=== PATIENT | female | born 1985 | race Caucasian/White ===

== ENCOUNTER 2023-02-13 13:15 | Emergency (ER) | payer MEDICAID, SELFPAY ==
[2023-02-13 13:18] VITALS: BP 129/89; PULSE 82; RESP 16; TEMP 36.5; O2SAT 98; BMI 26.6
--- NOTE | 2023-02-13 13:35 | ED.FEMALEGU ---
HPI - Female Genitourinary General Time Seen by Provider: 13:35 Date Seen: 02/13/23 Chief complaint: Urogenital Problems, Female Stated complaint: Bladder infection Time Seen by Provider: 02/13/23 13:34 Source: patient and RN notes reviewed Mode of arrival: ambulatory Limitations: no limitations History of Present Illness HPI Narrative: This 37-year-old female is coming in with concern of UTI. She had some urinary symptoms as well as reported bacterial vaginosis a couple weeks ago. She got treated with doxycycline and symptoms seemed of went away. However , 2 days ago, started having urinary frequency, dysuria, hematuria. She has been trying to push water and cranberry juice. She took a test at [facility] and it stated she had leukocyte esterase and nitrate positive. She has had no fevers or chills, no abdominal pain, no nausea or vomiting. She has no history of pyelonephritis or kidney stones. Related Data Previous Rx's Medication Instructions Recorded cephalexin 500 mg tablet 500 mg PO TID #15 tabs 02/13/23 Allergies Allergy/AdvReac Type Severity Reaction Status Date / Time morphine AdvReac Severe Anaphylaxis Verified 02/13/23 13:22 Review of Systems Narrative: As per HPI Exam Const: Vital Signs, click to edit/add: Vital Signs - 24 hr 02/13/23 13:18 Temperature 97.7 F Pulse Rate [Pulse Oximeter] 82 Respiratory Rate 16 Blood Pressure [Ri ght Upper Arm] 129/89 Pulse Oximetry 98 Oxygen Delivery Me thod Room Air Very pleasant 37-year-old female that is alert interactive no apparent distress. She looks well, speaks in complete sentences. CV regular rate rhythm no murmur. Abdomen is soft, no rebound or guarding, no organomegaly. Documenting provider has reviewed patient's vital signs: yes Course Course Hospital Course: Patient and I reviewed obtaining urine culture. We went over the pros and cons of having the urine culture verses not doing it. She will give us urine to do the urine culture to ensure she is on the right antibiotics. We will treat for UTI based on her test done outpatient. Vital Signs Vital signs: Initial Vital Signs Temperature 97.7 F 02/13/23 13:18 Temperature Source Temporal Artery Scan 02/13/23 13:18 Pulse Rate 82 02/13/23 13:18 Pulse Rhythm Regular 02/13/23 13:18 Pulse Strength 3+ Normal 02/13/23 13:18 Respiratory Rate 16 02/13/23 13:18 Blood Pressure 129/89 02/13/23 13:18 Blood Pressure Mean 102 02/13/23 13:18 Blood Pressure Position Sitting 02/13/23 13:18 Pulse Oximetry 98 02/13/23 13:18 Oxygen Delivery Method Room Air 02/13/23 13:18 Vital Signs Temperature 97.7 F 02/13/23 13:18 Pulse Rate 82 02/13/23 13:18 Respiratory Rate 16 02/13/23 13:18 Blood Pressure 129/89 02/13/23 13:18 Pulse Oximetry 98 02/13/23 13:18 Oxygen Delivery Method Room Air 02/13/23 13:18 Temperature 97.7 F 02/13/23 13:18 Pulse Rate 82 02/13/23 13:18 Respiratory Rate 16 02/13/23 13:18 Blood Pressure 129/89 02/13/23 13:18 Pulse Oximetry 98 02/13/23 13:18 Oxygen Delivery Method Room Air 02/13/23 13:18 Critical Care Time Critical Care Time Critical Care Time: No Discharge Plan Discharge Clinical Impression: Urinary tract infection Patient Disposition: Home, Self-Care Condition: Stable Instructions: Urinary Tract Infection in Women (DC) Additional Instructions: Start oral antibiotic and take as prescribed. Push fluids. We will contact you should we need to change antibiotics based on your urine culture results. If you are not improving over the next couple days, worsen at any point with nausea vomiting, development of fevers or abdominal pain, do need to be re-evaluated. Activity Level: Activity as Tolerated Discharge Diet: Regular Prescriptions: New cephalexin 500 mg tablet 500 mg PO TID Qty: 15 0RF Stand Alone Forms: [facility] Info Instructions
--- NOTE | 2023-02-17 09:28 | ED.NURSE ---
Patient calls wondering if her urine culture report is back. Reviewed culture results and appropriate treatment on keflex. Patient notes she still experiencing dysuria and pelvic discomfort, advised per Dr. Herndon's dictation to follow up if not improving. Patient verbalizes understanding denies any questions or concerns.
== END 2023-02-13 14:11 | disposition home or self-care (01) ==
LOC: ED 14:06
PROVIDERS: Emergency Provider Family Medicine
DX: N39.0 Urinary tract infection, site not specified (principal)
CPT/HCPCS: 87086; 87186; 99282; 99283

== ENCOUNTER 2023-06-05 11:05 | Emergency (ER) | payer MEDICAID, SELFPAY ==
[2023-06-05 11:15] VITALS: BP 152/109; PULSE 83; RESP 20; O2SAT 97; BMI 27.4
--- NOTE | 2023-06-05 11:36 | ED.DENTAL ---
HPI - Dental/Oral General Chief complaint: Altered Mental Status Stated complaint: broken tooth Time Seen by Provider: 06/05/23 11:07 History of Present Illness HPI Narrative: This 38-year-old female comes in with severe left lower dental pain. She states that she has a fractured tooth and has an appointment with a dentist in about 10 days. She had been taking Tylenol 3 and has run out of this medicine. Her pain is severe such that she is not able to sleep at night. She does not report any fevers or other symptoms. Related Data Home Medications Medication Instructions Recorded Confirmed acetaminophen 300 mg-codeine 30 mg 1 tab PO Q4-6H PRN pain 06/05/23 06/05/23 tablet Previous Rx's Medication Instructions Recorded cephalexin 500 mg tablet 500 mg PO TID #15 tabs 02/13/23 ketorolac 10 mg tablet 10 mg PO Q8H 5 days #15 tabs 06/05/23 methylprednisolone 4 mg tablets in See Rx Instructions PO .COMPLEX 06/05/23 a dose pack (Medrol (Alexis)) #21 ea Allergies Allergy/AdvReac Type Severity Reaction Status Date / Time morphine AdvReac Severe Anaphylaxis Verified 06/05/23 11:17 Review of Systems Status of ROS: Reports: 10 or more systems reviewed and unremarkable except as noted in History and below Narrative: Constitutional: No fevers, no weight gain or loss. Eyes: No discharge. No vision changes. HENT: No congestion, no sore throat, no ear pain. Dental pain as described above. Cardiovascular: No chest pain, no palpitations. Respiratory: No shortness of breath, no wheezes, no cough. Gastrointestinal: No abdominal pain, no vomiting, no diarrhea. Genitourinary: No dysuria, no hematuria. Musculoskeletal: Normal range of motion. Skin: No rashes, no pruritis. Neurological: No dizziness, weakness, sensory change, speech change. Endo/Heme/Allergies: No bruising or bleeding. No polydipsia. Pysch: no suicidality, no anxiety, no insomnia. All other systems reviewed and are negative. PFSH PFS Social History Smoking Status: Current every day smoker What tobacco products do you use: cigarettes Smoking packs per day: 0.5 Smoking cigarettes per day: 10.0 Years smoked: 25 Smoking pack-years: 12.50 Do you use any of these nicotine containing products: None Second hand tobacco smoke exposure: No How often do you have a drink containing alcohol: never How often do you have six or more drinks on one occasion: Never AUDIT-C Alcohol total score: 0 Non-prescribed substance use: denies use Exam Narrative: Exam Narrative: Constitutional: Well-developed, well-nourished, no acute distress. HEENT: Normocephalic, atraumatic. Fractured tooth in the left lower posterior row of teeth. Neck: Normal range of motion. Nontender. Supple. Heart: Intact distal pulses. Lungs: No chest discomfort. No wheezes, rhonchi, or rales. Abdomen: Nontender. Back: Normal range of motion. Extremities: Normal range of motion. No injury. Skin: Intact. No rash. Warm. No erythema or pallor. Neurologic: No altered sensation. No weakness. Alert and oriented. Psychiatric: No suicidality. No anxiety or depression. No insomnia. Nursing notes and vitals signs are reviewed. Const: Vital Signs, click to edit/add: Vital Signs - 24 hr 06/05/23 11:15 Pulse Rate [Pulse Oximeter] 83 Respiratory Rate 20 Blood Pressure [Ri ght Upper Arm] 152/109 H Pulse Oximetry 97 Oxygen Delivery Me thod Room Air Course Vital Signs Vital signs: Initial Vital Signs Temperature Source Temporal Artery Scan 06/05/23 11:15 Pulse Rate 83 06/05/23 11:15 Respiratory Rate 06/05/23 11:15 Blood Pressure 152/109 H 06/05/23 11:15 Blood Pressure Mean 123 H 06/05/23 11:15 Blood Pressure Position Sitting 06/05/23 11:15 Pulse Oximetry 97 06/05/23 11:15 Oxygen Delivery Method Room Air 06/05/23 11:15 Vital Signs Pulse Rate 83 06/05/23 11:15 Respiratory Rate 20 06/05/23 11:15 Blood Pressure 152/109 H 06/05/23 11:15 Pulse Oximetry 97 06/05/23 11:15 Oxygen Delivery Method Room Air 06/05/23 11:15 Pulse Rate 83 06/05/23 11:15 Respiratory Rate 20 06/05/23 11:15 Blood Pressure 152/109 H 06/05/23 11:15 Pulse Oximetry 97 06/05/23 11:15 Oxygen Delivery Method Room Air 06/05/23 11:15 MDM - Dental/Oral MDM Narrative Medical decision making narrative: This patient has severe pain in her left lower row of teeth due to a fractured tooth. She does have an appointment with a dentist but this is about 10 days from now. I did recommend a nerve block of the inferior alveolar nerve and the patient is agreeable to this. Using Marcaine 0.25% I injected approximately 2 mL in this area and this brought rather quick and complete relief of her pain. I stated that we do not use narcotics to treat dental pain but did prescribe Toradol and a Medrol Dosepak. Discharge Plan Discharge Clinical Impression: Fracture of tooth Patient Disposition: Home, Self-Care Condition: Improved Additional Instructions: Take medication as needed and directed. Follow up with dentist as scheduled. Prescriptions: New ketorolac 10 mg tablet 10 mg PO Q8H 5 Days Qty: 15 0RF methylprednisolone [Medrol (Alexis)] 4 mg tablets,dose pack See Rx Instructions .ROUTE .COMPLEX Qty: 21 0RF Rx Instructions: orally per package directions No Action cephalexin 500 mg tablet 500 mg PO TID Qty: 15 0RF acetaminophen-codeine 300-30 mg tablet 1 tab PO Q4-6H PRN (Reason: pain) Follow Up/Referrals: Provider,Not a Local [Primary Care Provider] - Stand Alone Forms: [employer] Info Instructions
--- OUTSIDE RECORDS SUMMARY | 2023-06-05 11:39 | XMS_ITS | Patient Health Record ---
Author Name Unknown Organization [facility] Address [address] [place], [place] [id number] Care Team Providers Care Principal Database Developer Name Role Phone Luis Berta Primary Care Provider Dejan Bello Unavailable [phone] Natali Christiansen Unavailable [phone] Bartolo Klein Unavailable [phone] Mana Malik Unavailable [phone] ALLERGIES Allergen (clinical drug ingredient) Drug/Non Drug Allergy documented on EMR Reaction Allergy Type Onset Date Status morphine Morphine Unknown Drug Allergy Active RESULTS Component Value Reference Range Notes ALBUMIN Reviewed date:04/30/2023 11:49:38 AM Interpretation: Performing Lab:ROSANG[facility]A [facility] AlarisInter[employer] SupercomputingWekxHZ[address] Paolo Hauser Notes/Report: ALBUMIN 4.7 3.6-5.1 g/dL ESTRADIOL Reviewed date:04/30/2023 11:49:38 AM Interpretation: Performing Lab:[facility]ANG[facility]A [facility] [place] [place] Be[employer] BioproductsL[address] Paolo Hauser Notes/Report: ESTRADIOL 59 Reference Range Follicular Phase: 19-144 Mid-Cycle: 64-357 Luteal Phase: 56-214 Postmenopausal: < or = 31 Reference range established on post-pubertal patient population. No pre-pubertal reference range established using this assay. For any patients for whom low Estradiol levels are anticipated (e.g. males, pre-pubertal children and hypogonadal/post-menopausal females), the [facility] Estradiol, Ultrasensitive, LCMSMS assay is recommended (order code [id number]). Please note: patients being treated with the drug fulvestrant (Faslodex(R)) have demonstrated significant interference in immunoassay methods for estradiol measurement. The cross reactivity could lead to falsely elevated estradiol test results leading to an inappropriate clinical assessment of estrogen status. [facility] order code [id number], Ultrasensitive LC/MS/MS demonstrates negligible cross reactivity with fulvestrant. PROGESTERONE Reviewed date:04/30/2023 11:49:38 AM Interpretation: Performing Lab:ROSANGELA [facility]-[place] [address], [place] CjqaUH[address] Paolo Hauser Notes/Report: PROGESTERONE 1.9 Reference Ranges Female Follicular Phase < 1.0 Luteal Phase 2.6-21.5 Post menopausal < 0.5 1st Trimester 4.1-34.0 2nd Trimester 24.0-76.0 3rd Trimester 52.0-302.0 DHEA SULFATE Reviewed date:04/30/2023 11:49:38 AM Interpretation: Performing Lab:ROSANGELA [facility] [address], [place] RichardsonKbyhXZ[address] Paolo Hauser Notes/Report: DHEA SULFATE 148 19-237 mcg/dL FSH Reviewed date:04/30/2023 11:49:38 AM Interpretation: Performing Lab:ROSANGELA [facility] [address], [place] [facility] MedicalLmvgJO[address] Paolo Hauser Notes/Report: FSH 4.6 Reference Range Follicular Phase 2.5-10.2 Mid-cycle Peak 3.1-17.7 Luteal Phase 1.5- 9.1 Postmenopausal 23.0-116.3 LH Reviewed date:04/30/2023 11:49:38 AM Interpretation: Performing Lab:ROSANGELA [facility] [address], [place] SpringsZsbdAS[address] Paolo Hauser Notes/Report: LH 3.3 Reference Range Follicular Phase 1.9-12.5 Mid-Cycle Peak 8.7-76.3 Luteal Phase 0.5-16.9 Postmenopausal 10.0-54.7 PROLACTIN Reviewed date:04/30/2023 11:49:38 AM Interpretation: Performing Lab:ROSANGELA [facility]castGovindYangaroo [address], [place] NviyYI[address] Paolo Hauser Notes/Report: PROLACTIN 3.7 Reference Range Females Non- 3.0-30.0 10.0-209.0 Postmenopausal 2.0-20.0 T4, FREE Reviewed date:04/30/2023 11:49:38 AM Interpretation: Performing Lab:ROSANGELA [facility]-[place] [address], [place] JfdkRF[address] Paolo Hauser Notes/Report: T4, FREE 1.1 0.8-1.8 ng/dL CORTISOL, TOTAL Reviewed date:04/30/2023 11:49:38 AM Interpretation: Performing Lab:ROSANGELA [facility] [address], [place] XyseVK[address] Paolo Hauser Notes/Report: CORTISOL, TOTAL 13.5 Reference Range: For 8 a.m.(7-9 a.m.) Specimen: 4.0-22.0 Reference Range: For 4 p.m.(3-5 p.m.) Specimen: 3.0-17.0 * Please interpret above results accordingly * TSH Reviewed date:04/30/2023 11:49:38 AM Interpretation: Performing Lab:ROSANGELA [facility] [address], [facility] ClinicAacdBS[address] Paolo Hauser Notes/Report: TSH 1.25 Reference Range > or = 20 Years 0.40-4.50 Ranges First trimester 0.26-2.66 Second trimester 0.55-2.73 Third trimester 0.43-2.91 T3, FREE Reviewed date:04/30/2023 11:49:39 AM Interpretation: Performing Lab:ROSANGELA [facility] [address], [facility] ClinicFejnEN[address] Paolo Hauser Notes/Report: T3, FREE 3.3 2.3-4.2 pg/mL SEX HORMONE BINDING GLOBULIN Reviewed date:04/30/2023 11:49:39 AM Interpretation: Performing Lab:ROSANGELA [facility] [address], [facility] ClinicKevyRE[address] Paolo Hauser Notes/Report: SEX HORMONE BINDING GLOBULIN 73 17-124 nmol/ L TESTOSTERONE, TOTAL, LC/MS/M S Reviewed date:05/04/2023 10:02:38 AM Interpretation: Performing Lab:Z3E, [facility]-[address] [address], [address], AcoufjnhsnCJ[address] Earl Mcdonough MD Notes/Report: TESTOSTERONE, TOTAL, MS 26 2-45 ng/dL For additional information, please refer to https://education.Re5ult/faq/TotalTestoste roneLCMSMS (This link is being provided for informational/educational purposes only.) (Note) This test was developed and its analytical performance characteristics have been determined by [employer]. It has not been cleared or approved by the FDA. This assay has been validated pursuant to the CLIA regulations and is used for clinical purposes. [facility] [employer] [address] [place] [address],[address] [facility] [address] Earl Mcdonough MD DIHYDROTESTOSTERONE, LC/MS/M S Reviewed date:05/04/2023 10:02:39 AM Interpretation: Performing Lab:HARDY, [facility],[address] RamosPrimary Children's HospitalCA[address] Ange Esquivel MD,PhD,BERE Notes/Report: DIHYDROTESTOSTERONE, LC/MS/MS 11 < OR = 20 ng/dL This test was developed and its analytical performance characteristics have been determined by [facility]. It has not been cleared or approved by FDA. This assay has been validated pursuant to the CLIA regulations and is used for clinical purposes. TESTOSTERONE, FREE Reviewed date:05/04/2023 10:02:39 AM Interpretation: Performing Lab:Z3E, [facility]-BojZxfdbs[address] [place] [address], [address]Providence HospitalFfhrnqcljjBF[address] Earl Mcdonough MD Notes/Report: TESTOSTERONE, FREE 1.3 0.2-5.0 pg/mL (Note) The concentration of free testosterone is derived from a mathematical model using total testosterone by LCMSMS, sex hormone binding globulin and albumin. This test was developed and its analytical performance characteristics have been determined by [facility]. It has not been cleared or approved by the FDA. This assay has been validated pursuant to the CLIA regulations and is used for clinical purposes. [facility] [employer] [address] [address],[address] [facility] [address] Earl Mcdonough MD BD Affirm Reviewed date:12/18/2022 09:40:46 AM Interpretation: Performing Lab: Notes/Report: Yeast NEG Negative - Bacterial Vaginosis POS Negative - Trichomoniasis NEG Negative - Chlamydia & Gonorrhea Reviewed date:12/20/2022 08:03:54 AM Interpretation: Performing Lab:CESAR [facility]-[address] [facility] [address], LfummeefxdWW[address] Paolo Hauser Notes/Report: CHLAMYDIA TRACHOMATIS RNA, TMA, UROGENITAL NOT DETECTED NOT DETECTED NEISSERIA GONORRHOEAE RNA, TMA, UROGENITAL NOT DETECTED NOT DETECTED COMMENT The analytical performance characteristics of this assay, when used to test SurePath(TM) specimens have been determined by [facility]. The modifications have not been cleared or approved by the FDA. This assay has been validated pursuant to the CLIA regulations and is used for clinical purposes. For additional information, please refer to https://education.Re5ult/faq/GJI700 (This link is being provided for information/ educational purposes only.) ANTI-MULLERIAN HORMONE ([facility]) , (Insurance Bill ONLY) Reviewed date:05/04/2023 10:03:17 AM Interpretation: Performing Lab:Gardenia GARCIA [facility]-Chris [address]ww[address], JkiwirqzPW[address] Murtaza Christiansen M.D. Notes/Report: ANTI-MULLERIAN HORMONE ([facility]), FEMALE 4.01 0.18-5.68 ng/mL Test, Urine Reviewed date:12/18/2022 09:39:47 AM Interpretation:Negative Performing Lab: Notes/Report: Negative Test, Urine Negative Negative - BD Affirm Reviewed date:07/21/2022 01:17:45 PM Interpretation: Performing Lab: Notes/Report: Yeast NEG Negative - Bacterial Vaginosis POS Negative - Trichomoniasis NEG Negative - Chlamydia & Gonorrhea Reviewed date:07/27/2022 08:31:29 AM Interpretation: Performing Lab:CESAR [facility]-[address], IsnzvmwfacVP[address] Paolo Hauser Notes/Report: CHLAMYDIA TRACHOMATIS RNA, TMA, UROGENITAL NOT DETECTED NOT DETECTED NEISSERIA GONORRHOEAE RNA, TMA, UROGENITAL NOT DETECTED NOT DETECTED COMMENT The analytical performance characteristics of this assay, when used to test SurePath(TM) specimens have been determined by [facility]. The modifications have not been cleared or approved by the FDA. This assay has been validated pursuant to the CLIA regulations and is used for clinical purposes. For additional information, please refer to https://education.Re5ult/faq/NLP476 (This link is being provided for information/ educational purposes only.) HEPATITIS C AB W/REFL TO HCV RNA, QN, PCR Reviewed date:07/23/2022 09:04:23 AM Interpretation: Performing Lab:ROSANGELA [facility]-[place] [address], [place] RichardsonOnooDA[address] Paolo Hauser M.D. Notes/Report: HEPATITIS C ANTIBODY NON-REACTIVE NON-REACTIVE INDEX <0.02 <1.00 HCV antibody was non-reactive. There is no laboratory evidence of HCV infection. In most cases, no further action is required. However, if recent HCV exposure is suspected, a test for HCV RNA (test code 16773) is suggested. For additional information please refer to http://education.ThromboVision/faq/QXI46b7 (This link is being provided for informational/ educational purposes only.) HEPATITIS B SURFACE ANTIGEN W/REFL CONFIRM Reviewed date:07/23/2022 09:04:23 AM Interpretation: Performing Lab:ROSANGELA [facility]-[place] [address], [place] RichardsonRqdqBR[address] Paolo Hauser M.D. Notes/Report: HEPATITIS B SURFACE ANTIGEN NON-REACTIVE NON-REACTIVE RPR (DX) W/REFL TITER AND CO NFIRMATORY TESTING Reviewed date:07/23/2022 09:04:23 AM Interpretation: Performing Lab:ROSANGELA [facility]-[address], [place] RichardsonYgsrKE[address] Paolo Hauser M.D. Notes/Report: RPR (DX) W/REFL TITER AND CONFIRMATORY TESTING NON-REACTIVE NON-REACTIVE HIV 1/2 ANTIGEN/ANTIBODY,FOU RTH GENERATION W/RFL Reviewed date:07/23/2022 09:04:23 AM Interpretation: Performing Lab:ROSANGELA [facility] [address], [place] RichardsonEdxkXC[address] Paolo Hauser M.D. Notes/Report: HIV AG/AB, 4TH GEN NON-REACTIVE NON-REACTIVE HIV-1 antigen and HIV-1/HIV-2 antibodies were not detected. There is no laboratory evidence of HIV infection. PLEASE NOTE: This information has been disclosed to you from records whose confidentiality may be protected by state law. If your state requires such protection, then the state law prohibits you from making any further disclosure of the information without the specific written consent of the person to whom it pertains, or as otherwise permitted by law. A general authorization for the release of medical or other information is NOT sufficient for this purpose. For additional information please refer to http://education.CEYX.com/faq/SKK456 (This link is being provided for informational/ educational purposes only.) The performance of this assay has not been clinically validated in patients less than 2 years old. SURESWAB(R), MYCOPLASMA/UREA PLASMA PANEL, PCR Reviewed date:07/27/2022 08:30:27 AM Interpretation: Performing Lab:EZ, [facility]/Chris [facility],[address] [facility] CenterCA[address] Ange Esquivel MD,PhD,BERE Notes/Report: SURESWAB(R), MYCOPLASMA HOMINIS, REAL-TIME PCR DETECTED REFEERENCE RANGE: NOT DETECTED Methodology: Real-Time PCR This test was developed and its analytical performance characteristics have been determined by [facility]. It has not been cleared or approved by FDA. This assay has been validated pursuant to the CLIA regulations and is used for clinical purposes. MYCOPLASMA GENITALIUM, rRNA,TMA NOT DETECTED REFERENCE RANGE: NOT DETECTED U. PARVUM DNA DETECTED U. UREALYTICUM DNA NOT DETECTED REFERENCE RANGE: NOT DETECTED Methodology: Real-Time PCR This test was developed and its analytical performance characteristics have been determined by [facility]. It has not been cleared or approved by FDA. This assay has been validated pursuant to the CLIA regulations and is used for clinical purposes. Urinalysis, Routine - IH Reviewed date:03/09/2023 02:40:40 PM Interpretation: Performing Lab: Notes/Report: Urine Color yellow Yellow - Praveena Appearance clear Clear - Glucose neg Bilirubin neg Ketone neg Specific [place] 1.030 Blood neg pH 5.5 Protein neg Urobilinogen 0.2 Nitrite neg Leukocytes neg Glucose Bilirubin Ketones Specific [place] Occult Blood pH Protein Urobilinogen Nitrite Leukocytes BD Affirm Reviewed date:03/09/2023 02:43:08 PM Interpretation: Performing Lab: Notes/Report: Yeast NEG Negative - Bacterial Vaginosis POS Negative - Trichomoniasis NEG Negative - SURESWAB(R), MYCOPLASMA/UREA PLASMA PANEL, PCR Reviewed date:12/21/2022 12:13:14 PM Interpretation: Performing Lab:EZ, [facility],[address] [facility] CenterCA[address] Ange Esquivel MD,PhD,BERE Notes/Report: SURESWAB(R), MYCOPLASMA HOMINIS, REAL-TIME PCR DETECTED REFEERENCE RANGE: NOT DETECTED Methodology: Real-Time PCR This test was developed and its analytical performance characteristics have been determined by [facility]. It has not been cleared or approved by FDA. This assay has been validated pursuant to the CLIA regulations and is used for clinical purposes. MYCOPLASMA GENITALIUM, rRNA,TMA NOT DETECTED REFERENCE RANGE: NOT DETECTED U. PARVUM DNA DETECTED U. UREALYTICUM DNA DETECTED REFERENCE RANGE: NOT DETECTED Methodology: Real-Time PCR This test was developed and its analytical performance characteristics have been determined by [facility]. It has not been cleared or approved by FDA. This assay has been validated pursuant to the CLIA regulations and is used for clinical purposes. REASON FOR REFERRAL No Information SOCIAL HISTORY Tobacco Use: Social History Observation Description Date Details (start date - stop date) Current Smoker NA - NA Sex Assigned At : Social History Observation Description Sex Assigned At Unknown Tobacco Use/Smoking Question Answer Notes Are you a current smoker How often do you smoke cigarettes? every day How many cigarettes a day do you smoke? 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) Problem Discharge of vagina (N89.8) Active confirmed Problem Encounter for screening for HIV (Z11.4) Active confirmed Problem UTI (N39.0) Active confirmed VITAL SIGNS Blood pressure diastolic 80 mm Hg 04/28/2023 Height 68 in 04/28/2023 Blood pressure systolic 120 mm Hg 04/28/2023 Weight 165.8 lbs 04/28/2023 BMI 25.21 kg/m2 04/28/2023 Encounters Encounter Location Date Provider Diagnosis [facility] [address] [facility] [address] [place] [address] 07/20/2022 Mana Malik [facility] [address] [place] [phone] 07/27/2022 Mana Malik [facility] [address] [place] [address] 07/29/2022 Dejan Bello [facility] [address] [place] [phone] 12/16/2022 Natalisa Christiansen [facility] [address] [place], [place] [address] [address] 12/21/2022 Berta Smith [facility] [address] [place] [phone] 01/21/2023 Mana Malik [facility] [address] [place] [phone] 03/04/2023 Bartolo Klein [facility] [address] [place] [phone] 04/28/2023 Dejan Bello [facility] [address] [place], [place] [phone] 04/28/2023 Dejan Bello Recurrent infections B99.9 [facility] [address] [place] [phone] 07/20/2022 Mana Malik Vaginal discharge N89.8 and Routine screening for STI (sexually transmitted infection) Z11.3 [facility] [address] [place] [id number] 05/18/2023 Dejan Maceford [place] [place], [place] [phone] 03/04/2023 Christracheler Ernie Cervical discharge N89.8 [facility] [address] [place] [address] 04/28/2023 Dejan [place] Desire for Z31.9 ; Dysfunction of left ovary E28.9 and Infection B99.9 [address] [place] [address] [place] [phone] 12/16/2022 Natali Hoffoss Cervical discharge N89.8 [facility] [address] [place] [address] 12/16/2022 Natali Hoffoss Encounter for screening examination for sexually transmitted disease Z11.3 and Encounter for screening examination for chlamydial infection Z11.[address] [place] [address] 07/20/2022 Mana Malik Vaginal itching N89.8 [facility] [address] [place] [address] 07/20/2022 Mana Malik Encounter for screening examination for sexually transmitted disease Z11.3 and Encounter for screening for HIV Z11.4 [address] [place], [place] [phone] 12/16/2022 Natali Hoffoss Amenorrhea N91.2 ; Urine test negative Z32.02 ; Vaginal discharge N89.8 ; Chronic vaginitis N76.1 and Routine screening for STI (sexually transmitted infection) Z11.3 [address] [place] [place], [place] [phone] 12/16/2022 Natali Hoffoss Abnormal uterine bleeding N93.9 [address] [place], [place] [phone] 03/04/2023 Bartolo Klein UTI N39.0 and Chronic vaginitis N76.1 [address] [place], [place] [phone] 10/09/2022 Dejan Maceford ASSESSMENTS Encounter Date Diagnosis Assessment Notes Treatment Notes Treatment Clinical Notes 03/04/2023 UTI (ICD-10 - N39.0) History and symptoms reviewed. UA normal. No further treatment at this time. 12/16/2022 Urine test negative (ICD-10 - Z32.02) 03/04/2023 Chronic vaginitis (ICD-10 - N76.1) Symptoms reviewed. Exam findings reviewed with patient. BD Affirm performed. Further treatment pending results. Discussed chronic vaginitis and briefly discussed treatment options. 07/20/2022 Vaginal discharge (ICD-10 - N89.8) -Complete STI testing today with BD affirm, GC/CT, and myoplasma/ureaplasm a. -Patient with chronic, recurrent BV. We will try and extended course of 2x weekly metrogel -Serum testing for HIV/RPR/HEp b/c. -Will notify patient of results. 07/20/2022 Routine screening for STI (sexually transmitted infection) (ICD-10 - Z11.3) 12/16/2022 Encounter for screening examination for sexually transmitted disease (ICD-10 - Z11.3) 12/16/2022 Encounter for screening examination for chlamydial infection (ICD-10 - Z11.8) 12/16/2022 Abnormal uterine bleeding (ICD-10 - N93.9) 12/16/2022 Amenorrhea (ICD-10 - N91.2) Discussed with patient UPT here today is negative. Suspect this was a chemical for the patient. Appearance of US looks mid cycle which correlates with dates. Discussed if she wants to eavluate for ashermann's syndrome, she would need a hysteroscopy with an MD. She is not intersted in a , would like tubal ligation now. As for BV chronically, advised to use distilled NOT bottled water. BD affirm collected, STI screening done as well per patient request. See Chary BLANCO for information on our laser therapy options and discuss if chronic BV is an indidcation for these. 30 minutes spent in chart prep, US discussion, symptom discussion, plan of care for all concerns and documenting vist. 04/28/2023 Desire for (ICD-10 - Z31.9) 04/28/2023 Recurrent infections (ICD-10 - B99.9) 38 yo F with recurrent vaginal infections. I reviewed with her that bacterial vaginosis typically results due to a change in the vaginal pH which allows for the overgrowth of bacteria. This indicates that her vaginal pH may be contributing to her experience with recurrent infections. Commonly a contributor to vaginal pH changes such as this are hormonal imbalances. I suspect that she may have a low level of testosterone. Hormonal labs will be drawn today to assess for this. If her hormones are in fact low, hormone replacement therapy (HRT) may benefit her. Her energy level is low, she has affected focus, her nails are brittle and slow growing, and her hair has become very thin and brittle. She will follow up with me in 2 weeks to discuss these lab results and develop a plan. 07/20/2022 Encounter for screening examination for sexually transmitted disease (ICD-10 - Z11.3) 07/20/2022 Encounter for screening for HIV (ICD-10 - Z11.4) 07/20/2022 Vaginal itching (ICD-10 - N89.8) 12/16/2022 Vaginal discharge (ICD-10 - N89.8) 12/16/2022 Cervical discharge (ICD-10 - N89.8) 03/04/2023 Cervical discharge (ICD-10 - N89.8) 04/28/2023 Infection (ICD-10 - B99.9) 04/28/2023 Dysfunction of left ovary (ICD-10 - E28.9) 12/16/2022 Chronic vaginitis (ICD-10 - N76.1) 12/16/2022 Routine screening for STI (sexually transmitted infection) (ICD-10 - Z11.3) 04/28/2023 Other Total face to face time is 30minutes, with > 50% of time spent in counseling regarding diagnosis, risks and benefits of various treatment plans and expected outcomes., Portions of this note were transcribed by chato Oconnor. Dr. Bello personally performed the history, physical exam and medical decision making; and confirmed the accuracy of the information in the transcribed note Authenticated by Dr. Bello. PLAN OF TREATMENT Next Appt Details Provider Name:Deidra Macario, 06/16/2023 02:30:00 PM, [address] [place] [address], [address], [place], [address], Insurance Providers Payer Name Payer Address Payer Phone Subscriber Number Group Number Insured Name Patient Relationship to Insured Coverage Start Date Coverage End Date [facility] 2021 [place] (CLIENT bill) [address] [place], [place] [phone] [id number] Taylor Solis Self - patient is the insured 2 [facility] 2019 [address] [place], [place] [phone] [id number] Taylor Gonzalez Self - patient is the insured 7 MEDICAL (GENERAL) HISTORY Medical History History ICD Code Kidney Infections Bladder Infections Pelvic infections Chicken Pox Depression/Anxiety Drug or Alcohol problem Asthma Pneumonia Surgical History Surgery Date(Month/Year) C-sesction 08/13/2005 Breast Augmentation 05/08/2006 06/21/2008 D and C 10/2017 Hospitalization History Reason Date(Month/Year) child x2
[2023-06-05] MEDS: BUPIVACAINE 0.25% 30 ML INJECTION (11:44)
== END 2023-06-05 11:59 | disposition home or self-care (01) ==
PROVIDERS: Emergency Provider Emergency Medicine Emergency Medical Services
DX: S02.5XXA Fracture of tooth (traumatic), initial encounter for closed fracture (principal)
CPT/HCPCS: 64450; 99283; 99284; J0665

== ENCOUNTER 2023-07-12 04:55 | Emergency (ER) | payer MEDICAID, SELFPAY ==
[2023-07-12 05:02] VITALS: BP 135/78; PULSE 85; RESP 18; TEMP 36.7; O2SAT 99; BMI 28.7
--- NOTE | 2023-07-12 05:05 | ED_ITS ---
HPI - General Adult General Chief complaint: Dental/Oral/Mouth Injury/Pain Stated complaint: Toothache L side Time Seen by Provider: 07/12/23 05:02 History of Present Illness HPI narrative: CC: Left Lower Tooth Pain pt. with ongoing issues with tooth. supposed to see dentist, but she tore her meniscus and was focusing on that. denies n/v, diarrhea, fevers 38-year-old woman presenting to the emergency department with tooth pain. Has been seen for this before in this department about 5 or 6 weeks ago. Anticipated follow-up with dental at that time but had a rather significant right knee injury and is moving toward surgery with that which derailed her dental plans. She is further concerned about timing of dental care and surgery for her knee which apparently is coming up what sounded like this week. This was abrupt onset of pain again. She has not noticed swelling or drainage. She is just wanting some immediate relief and requesting an injection. Reviewing records it does appear is if she received at inferior alveolar block last time with good success. Has been trying ibuprofen and Orajel cream. Related Data Home Medications Medication Instructions Recorded Confirmed No Known Home Medications 07/12/23 07/12/23 Allergies Allergy/AdvReac Type Severity Reaction Status Date / Time morphine AdvReac Severe Anaphylaxis Verified 07/12/23 05:07 Review of Systems Status of ROS: Reports: 6 or more systems reviewed and unremarkable except as noted in History and below [facility] Medical History Tear of meniscus of right knee ?S83.206A - Unspecified tear of unspecified meniscus, current injury, right knee, initial encounter (ICD-10) History of induced ?Z98.890 - Other specified postprocedural states (ICD-10) PTSD (post-traumatic stress disorder) ?F43.10 - Post-traumatic stress disorder, unspecified (ICD-10) ADHD (attention deficit hyperactivity disorder) ?F90.9 - Attention-deficit hyperactivity disorder, unspecified type (ICD-10) Surgical History History of section ?Z98.891 - History of uterine scar from previous surgery (ICD-10) History of breast augmentation ?Z98.82 - Breast implant status (ICD-10) Social History Smoking Status: Current every day smoker What tobacco products do you use: cigarettes Smoking packs per day: 0.5 Smoking cigarettes per day: 10.0 Years smoked: 25 Smoking pack-years: 12.50 Do you use any of these nicotine containing products: None Second hand tobacco smoke exposure: No How often do you have a drink containing alcohol: never How often do you have six or more drinks on one occasion: Never AUDIT-C Alcohol total score: 0 Non-prescribed substance use: denies use Exam Narrative: Exam Narrative: Pleasant. Seems uncomfortable. Very active, animated. Smell of cigarette smoke noted. Breathing easily. I do not see outward swelling of her jaw nor is there cervical lymphadenopathy. Oropharyngeal exam shows some loss of teeth at the gumline bilateral lower jaw. The area of pain as noted is on the left where both tooth 18 and 19 are with large erosions between. Not percussively tender. Const: Vital Signs, click to edit/add: Vital Signs - 24 hr 07/12/23 05:02 Temperature 98.1 F Pulse Rate [Right Pulse Oximeter] 85 Respiratory Rate 18 Blood Pressure [Ri ght Upper Arm] 135/78 Pulse Oximetry 99 Oxygen Delivery Me thod Room Air Documenting provider has reviewed patient's vital signs: yes Course Vital Signs Vital signs: Initial Vital Signs Temperature 98.1 F 07/12/23 05:02 Temperature Source Temporal Artery Scan 07/12/23 05:02 Pulse Rate 85 07/12/23 05:02 Respiratory Rate 18 07/12/23 05:02 Blood Pressure 135/78 07/12/23 05:02 Blood Pressure Mean 97 07/12/23 05:02 Blood Pressure Position Sitting 07/12/23 05:02 Pulse Oximetry 99 07/12/23 05:02 Oxygen Delivery Method Room Air 07/12/23 05:02 Vital Signs Temperature 98.1 F 07/12/23 05:02 Pulse Rate 85 07/12/23 05:02 Respiratory Rate 18 07/12/23 05:02 Blood Pressure 135/78 07/12/23 05:02 Pulse Oximetry 99 07/12/23 05:02 Oxygen Delivery Method Room Air 07/12/23 05:02 Temperature 98.3 F 07/12/23 06:19 Pulse Rate 79 07/12/23 06:19 Respiratory Rate 18 07/12/23 06:19 Blood Pressure 124/74 07/12/23 06:19 Pulse Oximetry 99 07/12/23 06:17 Oxygen Delivery Method Room Air 07/12/23 06:17 Medical Decision Making MDM Narrative Medical decision making narrative: Not convinced that this is actually infectious etiology. I think it is more nerve exposure/sensitivity. We do discuss ways to block her tooth. She would like to proceed regardless. I jil up to mL of 0.25% bupivacaine and injected without difficulty to anesthetize inferior/medial alveolar nerve. Near instant relief of pain is reported. Did not proceed then with buccal block In spite of I think this not being an infectious etiology I think it would be prudent to initiate penicillin in the of upcoming surgery or dental extraction. Encouraged smoking cessation See patient discharge plan Medical Records Medical records reviewed: Yes I reviewed the patient's medical records Discharge Plan Discharge Clinical Impression: Dental caries, Pain, dental Patient Disposition: Home w/ Parent or Adult Condition: Improved Additional Instructions: You might be able to get by with some temporary packing that can usually by in [employer] or possibly other pharmacies. It's called [employer] (one of their products is a putty) -- this might help with some of that exposure sensitivity. See this list of emergency or other dental options you might consider. I think it probably would be a good idea to discuss timing of any dental procedure with your orthopedic surgeon/team. Small quantity of [place] and penicillin from [facility]. Prescriptions: No Action No Known Home Medications Follow Up/Referrals: Provider,Not a Local [Primary Care Provider] - Stand Alone Forms: [employer] Info Instructions
--- OUTSIDE RECORDS SUMMARY | 2023-07-12 05:37 | XMS_ITS | Patient Health Record ---
Author Name Unknown Organization [facility] Address [address] [place], [place] [id number] Care Team Providers Care Batter Mixer Name Role Phone Berta Smith Primary Care Provider Dejan Bello Unavailable [phone] DanicaAndrésJeannine Unavailable [phone] Елена Natali Unavailable [phone] [facility] Unavailable Unav ailable Bartolo Klein Unavailable [phone] KingMana Unavailable [phone] Augustine Bowen Unavailable [phone] Deidra Macario Unavailable [phone] ALLERGIES Allergen (clinical drug ingredient) Drug/Non Drug Allergy documented on EMR Reaction Allergy Type Onset Date Status morphine Morphine Unknown Drug Allergy Active RESULTS Component Value Reference Range Notes BD Affirm Reviewed date:07/21/2022 01:17:45 PM Interpretation: Performing Lab: Notes/Report: Yeast NEG Negative - Bacterial Vaginosis POS Negative - Trichomoniasis NEG Negative - SURESWAB(R), MYCOPLASMA/UREA PLASMA PANEL, PCR Reviewed date:07/27/2022 08:30:27 AM Interpretation: Performing Lab:EZ, [facility]/Perez [facility]-[place],[address] Richard [facility] Fernando LgodceechqPT[address] Ange Esquivel MD,PhD,BERE Notes/Report: SURESWAB(R), MYCOPLASMA HOMINIS, REAL-TIME PCR DETECTED REFEERENCE RANGE: NOT DETECTED Methodology: Real-Time PCR This test was developed and its analytical performance characteristics have been determined by [facility]. It has not been cleared or approved by FDA. This assay has been validated pursuant to the CLIA regulations and is used for clinical purposes. MYCOPLASMA GENITALIUM, rRNA,TMA NOT DETECTED REFERENCE RANGE: NOT DETECTED U. PARVUM DNA DETECTED U. UREALYTICUM DNA NOT DETECTED REFERENCE RANGE: NOT DETECTED Methodology: Real-Time PCR This test was developed and its analytical performance characteristics have been determined by [facility]. It has not been cleared or approved by FDA. This assay has been validated pursuant to the CLIA regulations and is used for clinical purposes. HIV 1/2 ANTIGEN/ANTIBODY,FOU RTH GENERATION W/RFL Reviewed date:07/23/2022 09:04:23 AM Interpretation: Performing Lab:[facility] AD[facility]-[address] [place] Paolo Hauser M.D. Notes/Report: HIV AG/AB, 4TH [...] purpose. For additional information please refer to http://education.aka-aki networks.com/faq/HJM728 (This link is being provided for informational/ educational purposes only.) The performance of this assay has not been clinically validated in patients less than 2 years old. RPR (DX) W/REFL TITER AND CO NFIRMATORY TESTING Reviewed date:07/23/2022 09:04:23 AM Interpretation: Performing Lab:[facility] AD[facility]-[address] [place] Paolo Hauser M.D. Notes/Report: RPR (DX) W/REFL TITER AND CONFIRMATORY TESTING NON-REACTIVE NON-REACTIVE HEPATITIS B SURFACE ANTIGEN W/REFL CONFIRM Reviewed date:07/23/2022 09:04:23 AM Interpretation: Performing Lab:[facility] AD[facility]-[address] [facility] Paolo Hauser M.D. Notes/Report: HEPATITIS B SURFACE ANTIGEN NON-REACTIVE NON-REACTIVE HEPATITIS C AB W/REFL TO HCV RNA, QN, PCR Reviewed date:07/23/2022 09:04:23 AM Interpretation: Performing Lab:[facility] ADAMES Adility-[address] U[address] [facility] Paolo Hauser M.D. Notes/Report: HEPATITIS C ANTIBODY NON-REACTIVE NON-REACTIVE INDEX <0.02 <1.00 HCV antibody was non-reactive. There is no laboratory evidence of HCV infection. In most cases, no further action is required. However, if recent HCV exposure is suspected, a test for HCV RNA (test code 51071) is suggested. For additional information please refer to http://education.Upclique/faq/XDR81l7 (This link is being provided for informational/ educational purposes only.) Chlamydia & Gonorrhea Reviewed date:07/27/2022 08:31:29 AM Interpretation: Performing Lab:[facility] GUERRERO-[address], WerxonryhbWE[address] Paolo Hauser Notes/Report: CHLAMYDIA TRACHOMATIS RNA, TMA, UROGENITAL NOT DETECTED NOT DETECTED NEISSERIA GONORRHOEAE RNA, TMA, UROGENITAL NOT DETECTED NOT DETECTED COMMENT The analytical performance characteristics of this assay, when used to test SurePath(TM) specimens have been determined by [facility]. The modifications have not been cleared or approved by the FDA. This assay has been validated pursuant to the CLIA regulations and is used for clinical purposes. For additional information, please refer to https://education.Zaldiva/faq/IJF285 (This link is being provided for information/ educational purposes only.) Test, Urine Reviewed date:12/18/2022 09:39:47 AM Interpretation:Negative Performing Lab: Notes/Report: Negative Test, Urine Negative Negative - BD Affirm Reviewed date:12/18/2022 09:40:46 AM Interpretation: Performing Lab: Notes/Report: Yeast NEG Negative - Bacterial Vaginosis POS Negative - Trichomoniasis NEG Negative - Chlamydia & Gonorrhea Reviewed date:12/20/2022 08:03:54 AM Interpretation: Performing Lab:CESAR [facility]-[address], IqgvbftngyVC[address] Paolo Hauser Notes/Report: CHLAMYDIA TRACHOMATIS RNA, TMA, UROGENITAL NOT DETECTED NOT DETECTED NEISSERIA GONORRHOEAE RNA, TMA, UROGENITAL NOT DETECTED NOT DETECTED COMMENT The analytical performance characteristics of this assay, when used to test SurePath(TM) specimens have been determined by [facility]. The modifications have not been cleared or approved by the FDA. This assay has been validated pursuant to the CLIA regulations and is used for clinical purposes. For additional information, please refer to https://education.Zaldiva/faq/BWI903 (This link is being provided for information/ educational purposes only.) Urinalysis, Routine - IH Reviewed date:03/09/2023 02:40:40 PM Interpretation: Performing Lab: Notes/Report: Urine Color yellow Yellow - Praveena Appearance clear Clear - Glucose neg Bilirubin neg Ketone neg Specific [place] 1.030 Blood neg pH 5.5 Protein neg Urobilinogen 0.2 Nitrite neg Leukocytes neg Glucose Bilirubin Ketones Specific [place] Occult Blood pH Protein Urobilinogen Nitrite Leukocytes BD Affirm Reviewed date:03/09/2023 02:43:08 PM Interpretation: Performing Lab: Notes/Report: Yeast NEG Negative - Bacterial Vaginosis POS Negative - Trichomoniasis NEG Negative - ANTI-MULLERIAN HORMONE ([facility]) , (Insurance Bill ONLY) Reviewed date:05/04/2023 10:03:17 AM Interpretation: Performing Lab:RADHA [facility]-Chris Cvyqnksd[address], EnvsxekuQR[address] Murtaza Christiansen M.D. Notes/Report: ANTI-MULLERIAN HORMONE ([facility]), FEMALE 4.01 0.18-5.68 ng/mL Urinalysis, Routine - IH Reviewed date:06/07/2023 02:12:37 PM Interpretation: Performing Lab: Notes/Report: Urine Color yellow Yellow - Praveena Appearance clear Clear - Glucose neg Bilirubin neg Ketone neg Specific [place] 1.030 Blood 3+ 200 pH 5.5 Protein 30 Urobilinogen 0.2 Nitrite neg Leukocytes 2+ 125 Glucose Bilirubin Ketones Specific [place] Occult Blood pH Protein Urobilinogen Nitrite Leukocytes Test, Urine Reviewed date:07/06/2023 01:45:32 PM Interpretation: Performing Lab: Notes/Report: Test, Urine neg Negative - SURESWAB(R), MYCOPLASMA/UREA PLASMA PANEL, PCR Reviewed date:12/21/2022 12:13:14 PM Interpretation: Performing Lab:[facility] DASH/Perez [facility]-[place],[address] [address], WinslowTjbqypumstZV[address] Ange Esquivel MD,PhD,BERE Notes/Report: SURESWAB(R), MYCOPLASMA HOMINIS, REAL-TIME PCR DETECTED REFEERENCE RANGE: NOT DETECTED Methodology: Real-Time PCR This test was developed and its analytical performance characteristics have been determined by [facility]. It has not been cleared or approved by FDA. This assay has been validated pursuant to the CLIA regulations and is used for clinical purposes. MYCOPLASMA GENITALIUM, rRNA,TMA NOT DETECTED REFERENCE RANGE: NOT DETECTED U. PARVUM DNA DETECTED U. UREALYTICUM DNA DETECTED REFERENCE RANGE: NOT DETECTED Methodology: Real-Time PCR This test was developed and its analytical performance characteristics have been determined by [facility]. It has not been cleared or approved by FDA. This assay has been validated pursuant to the CLIA regulations and is used for clinical purposes. ALBUMIN Reviewed date:04/30/2023 11:49:38 AM Interpretation: Performing Lab:[facility] AD[facility]-[address], [address] [facility] HospitalPwxsJL[address] Paolo Hauser Notes/Report: ALBUMIN 4.7 3.6-5.1 g/dL ESTRADIOL Reviewed date:04/30/2023 11:49:38 AM Interpretation: Performing Lab:[facility] AD[facility]-[address] [employer], LLCl[address] [facility] HospitalQrnrJT[address] Paolo Hauser Notes/Report: ESTRADIOL 59 Reference Range Follicular Phase: 19-144 Mid-Cycle: 64-357 Luteal Phase: 56-214 Postmenopausal: < or = 31 Reference range established on post-pubertal patient population. No pre-pubertal reference range established using this assay. For any patients for whom low Estradiol levels are anticipated (e.g. males, pre-pubertal children and hypogonadal/post-menopausal females), the [facility] Estradiol, Ultrasensitive, LCMSMS assay is recommended (order code 57043). Please note: patients being treated with the drug fulvestrant (Faslodex(R)) have demonstrated significant interference in immunoassay methods for estradiol measurement. The cross reactivity could lead to falsely elevated estradiol test results leading to an inappropriate clinical assessment of estrogen status. [facility] order code [id number]-Dfhkcyxfz, Ultrasensitive LC/MS/MS demonstrates negligible cross reactivity with fulvestrant. PROGESTERONE Reviewed date:04/30/2023 11:49:38 AM Interpretation: Performing Lab:ROSANGELA [facility]-[employer] [address], ListnerdMdcqVY[address] Paolo Hauser Notes/Report: PROGESTERONE 1.9 Reference Ranges Female Follicular Phase < 1.0 Luteal Phase 2.6-21.5 Post menopausal < 0.5 1st Trimester 4.1-34.0 2nd Trimester 24.0-76.0 3rd Trimester 52.0-302.0 DHEA SULFATE Reviewed date:04/30/2023 11:49:38 AM Interpretation: Performing Lab:[facility] ADAMES [facility] [employer] [address], [employer] Hard[employer] IncDvlpJV[address] Paolo Hauser Notes/Report: DHEA SULFATE 148 19-237 mcg/dL FSH Reviewed date:04/30/2023 11:49:38 AM Interpretation: Performing Lab:ROSANGELA [facility] [address], ListnerdKpxoSX[address] Paolo Hauser Notes/Report: FSH 4.6 Reference Range Follicular Phase 2.5-10.2 Mid-cycle Peak 3.1-17.7 Luteal Phase 1.5- 9.1 Postmenopausal 23.0-116.3 LH Reviewed date:04/30/2023 11:49:38 AM Interpretation: Performing Lab:ROSANGELA [facility] [address], ListnerdQdpqBS[address] Paolo Hauser Notes/Report: LH 3.3 Reference Range Follicular Phase 1.9-12.5 Mid-Cycle Peak 8.7-76.3 Luteal Phase 0.5-16.9 Postmenopausal 10.0-54.7 PROLACTIN Reviewed date:04/30/2023 11:49:38 AM Interpretation: Performing Lab:ROSANGELA [facility] [address], ListnerdCsfgEC[address] Paolo Hauser Notes/Report: PROLACTIN 3.7 Reference Range Females Non- 3.0-30.0 10.0-209.0 Postmenopausal 2.0-20.0 T4, FREE Reviewed date:04/30/2023 11:49:38 AM Interpretation: Performing Lab:ROSANGELA [facility]-[address], [place] NfdsAR[address] Paolo Hauser Notes/Report: T4, FREE 1.1 0.8-1.8 ng/dL CORTISOL, TOTAL Reviewed date:04/30/2023 11:49:38 AM Interpretation: Performing Lab:ROSANGELA [facility]-[address], [place] HftcUF[address] Paolo Hauser Notes/Report: CORTISOL, TOTAL 13.5 Reference Range: For 8 a.m.(7-9 a.m.) Specimen: 4.0-22.0 Reference Range: For 4 p.m.(3-5 p.m.) Specimen: 3.0-17.0 * Please interpret above results accordingly * TSH Reviewed date:04/30/2023 11:49:38 AM Interpretation: Performing Lab:ROSANGELA [facility] LabsTimmy Afik[address], [facility] HospitalEvvmDR[address] Paolo Hauser Notes/Report: TSH 1.25 Reference Range > or = 20 Years 0.40-4.50 Ranges First trimester 0.26-2.66 Second trimester 0.55-2.73 Third trimester 0.43-2.91 T3, FREE Reviewed date:04/30/2023 11:49:39 AM Interpretation: Performing Lab:[facility] ADAMES AdilityTimmy [address], [place] ImmpQC[address] Paolo Hauser Notes/Report: T3, FREE 3.3 2.3-4.2 pg/mL SEX HORMONE BINDING GLOBULIN Reviewed date:04/30/2023 11:49:39 AM Interpretation: Performing Lab:ROSANGELA [facility]iTmmy Rgxe[address], [place] AgvgOF[address] Paolo Hauser Notes/Report: SEX HORMONE BINDING GLOBULIN 73 17-124 nmol/ L TESTOSTERONE, TOTAL, LC/MS/M S Reviewed date:05/04/2023 10:02:38 AM Interpretation: Performing Lab:Raymond [facility]-[address] [address], [address], CsqquuwdnoCC[address] Earl Mcdonough MD Notes/Report: TESTOSTERONE, TOTAL, MS 26 2-45 ng/dL For additional information, please refer to https://education.Zaldiva/faq/TotalTestoste roneLCMSMS (This link is being provided for informational/educational purposes only.) (Note) This test was developed and its analytical performance characteristics have been determined by [facility]. It has not been cleared or approved by the FDA. This assay has been validated pursuant to the CLIA regulations and is used for clinical purposes. [facility] [address] [address],[address] [place] [address] Earl Mcdonough MD DIHYDROTESTOSTERONE, LC/MS/M S Reviewed date:05/04/2023 10:02:39 AM Interpretation: Performing Lab:HARDY, [facility],[address] [facility] Peak HospitalCA[address] Ange Esquivel MD,PhD,BERE Notes/Report: DIHYDROTESTOSTERONE, LC/MS/MS 11 < OR = 20 ng/dL This test was developed and its analytical performance characteristics have been determined by [facility]. It has not been cleared or approved by FDA. This assay has been validated pursuant to the CLIA regulations and is used for clinical purposes. TESTOSTERONE, FREE Reviewed date:05/04/2023 10:02:39 AM Interpretation: Performing Lab:Z3E, [facility]-JjbOwtcnk[address] [place] [address], [address] CenterYfkvszxkxmNP[address] Earl Mcdonough MD Notes/Report: TESTOSTERONE, FREE 1.3 0.2-5.0 pg/mL (Note) The concentration of free testosterone is derived from a mathematical model using total testosterone by LCMSMS, sex hormone binding globulin and albumin. This test was developed and its analytical performance characteristics have been determined by [facility]. It has not been cleared or approved by the FDA. This assay has been validated pursuant to the CLIA regulations and is used for clinical purposes. [facility] [address] [address],[address] [facility] [address] Earl Mcdonough MD SURESWAB(R), MYCOPLASMA/UREA PLASMA PANEL, PCR Reviewed date:06/10/2023 04:35:42 PM Interpretation: Performing Lab:[facility] DASH/Chris [facility],[address] [address], WinslowLypzbfalcaEN[address] Ange Esquivel MD,PhD,BERE Notes/Report: SURESWAB(R), MYCOPLASMA HOMINIS, REAL-TIME PCR DETECTED REFEERENCE RANGE: NOT DETECTED Methodology: Real-Time PCR This test was developed and its analytical performance characteristics have been determined by [facility]. It has not been cleared or approved by FDA. This assay has been validated pursuant to the CLIA regulations and is used for clinical purposes. MYCOPLASMA GENITALIUM, rRNA,TMA DETECTED REFERENCE RANGE: NOT DETECTED U. PARVUM DNA DETECTED U. UREALYTICUM DNA DETECTED REFERENCE RANGE: NOT DETECTED Methodology: Real-Time PCR This test was developed and its analytical performance characteristics have been determined by [facility]. It has not been cleared or approved by FDA. This assay has been validated pursuant to the CLIA regulations and is used for clinical purposes. BV/VAGINITIS PANEL DNA PROBE Reviewed date:06/10/2023 08:59:51 AM Interpretation: Performing Lab:[facility] GUERRERO [facility]-[address], GvlkmozklsNL[address] Paolo Hauser Notes/Report: TRICHOMONAS: NOT DETECTED NOT DETECTED GARDNERELLA: DETECTED NOT DETECTED Increased levels of G. vaginalis may not be significant in the absence of signs and symptoms of bacterial vaginosis. DIONTE: NOT DETECTED NOT DETECTED Chlamydia & Gonorrhea Reviewed date:06/10/2023 04:28:18 PM Interpretation: Performing Lab:CESAR [facility]-[address], IoqeewvgtkWV[address] Paolo Hauser Notes/Report: CHLAMYDIA TRACHOMATIS RNA, TMA, UROGENITAL NOT DETECTED NOT DETECTED NEISSERIA GONORRHOEAE RNA, TMA, UROGENITAL NOT DETECTED NOT DETECTED COMMENT The analytical performance characteristics of this assay, when used to test SurePath(TM) specimens have been determined by [facility]. The modifications have not been cleared or approved by the FDA. This assay has been validated pursuant to the CLIA regulations and is used for clinical purposes. For additional information, please refer to https://education.Zaldiva/faq/THI732 (This link is being provided for information/ educational purposes only.) CULTURE, URINE, ROUTINE Reviewed date:06/10/2023 09:38:46 AM Interpretation: Performing Lab:ROSANGELA, [facility]-[address], [place] SaenzZwjoYP[address] Paolo Abran Hauser Notes/Report: CULTURE, URINE, ROUTINE SEE NOTE CULTURE, URINE, ROUTINE Micro Number: [id number] Test Status: Final Specimen Source: Urine, clean catch Specimen Quality: Adequate Result: Greater than 100,000 CFU/mL of Escherichia coli E.coli INT ERIS AMOX/CLAVULANATE S 8 AMPICILLIN R >=32 AMP/SULBACTAM S 8 CEFAZOLIN NR <=4 2 CEFEPIME S <=1 CEFTAZIDIME S <=1 CEFTRIAXONE S <=1 CIPROFLOXACIN S <=0.25 GENTAMICIN S <=1 IMIPENEM S <=0.25 LEVOFLOXACIN I 1 NITROFURANTOIN S <=16 PIP/TAZOBACTAM S <=4 TOBRAMYCIN S <=1 TRIMETHOPRIM/SULFA R >=320 S=Susceptible I=Intermediate R=Resistant * = Not Tested NR = Not Reported NN = See Therapy Comments THERAPY COMMENTS Note 1: For infections other than uncomplicated UTI caused by E. coli, K. pneumoniae or P. mirabilis: Cefazolin is resistant if ERIS > or = 8 mcg/mL. (Distinguishing susceptible versus intermediate for isolates with ERIS < or = 4 mcg/mL requires additional testing.) Note 2: For uncomplicated UTI caused by E. coli, K. pneumoniae or P. mirabilis: Cefazolin is susceptible if ERIS <32 mcg/mL and predicts susceptible to the oral agents cefaclor, cefdinir, cefpodoxime, cefprozil, cefuroxime, cephalexin and loracarbef. REASON FOR REFERRAL No Information SOCIAL HISTORY [...] W/U Status Risk SNOMED Code Notes Problem Menopausal and female climacteric states (N95.1) Active confirmed Menopause (089737942) Problem Unspecified menopausal and perimenopausal disorder (N95.9) Active confirmed Menopausal and postmenopausal disorders (515569312) Problem Encounter for screening for infections with a predominantly sexual mode of transmission (Z11.3) Active confirmed Sexually transmitted infectious disease (8359307) Problem Amenorrhea (N91.2) Active confirmed Amenorrhea (80614419) Problem Abnormal uterine bleeding (N93.9) Active confirmed Abnormal ut erine bleeding (70499456428887) Problem Chronic vaginitis (N76.1) Active confirmed 85461693 Problem 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 (49792484) Problem Discharge of vagina (N89.8) Active confirmed Vaginal disch arge (030362303) Problem Trouble in sleeping (G47.9) Active confirmed 726020716 Problem Encounter for screening for HIV (Z11.4) Active confirmed Human immunodeficiency virus screening (590696497) Problem UTI (N39.0) Active confirmed Urinary tr act infection (47202231) VITAL SIGNS Blood pressure diastolic 80 mm Hg 07/06/2023 Height 68 in 07/06/2023 Blood pressure systolic 132 mm Hg 07/06/2023 Weight 175.2 lbs 07/06/2023 BMI 26.64 kg/m2 07/06/2023 Encounters Encounter Location Date Provider Diagnosis [place] [address] [place], [place] [phone] 10/09/2022 [place] [address] [place], [place] [phone] 04/28/2023 [place] [address] [place] [phone] 05/18/2023 [place] [address] [place] [phone] 06/08/[address] [place] [phone] 06/16/2023 Deidra Macario [place] [place], [place] [id number] 06/23/2023 Jeannine Mishra [address] [place] [phone] 07/20/2022 Manaowen Malik Vaginal discharge N89.8 and Routine screening for STI (sexually transmitted infection) Z11.[address] [place] [phone] 07/20/2022 Manaowen Malik Vaginal itching N89. 8 [facility] [address] [place] [address] 07/20/2022 Manaowen Malik Encounter for screening examination for sexually transmitted disease Z11.3 and Encounter for screening for HIV Z11.4 [place] [address] [place], [place] [phone] 12/16/2022 Natali Hoffoss Amenorrhea N91.2 ; Urine test negative Z32.02 ; Vaginal discharge N89.8 ; Chronic vaginitis N76.1 and Routine screening for STI (sexually transmitted infection) Z11.3 [place] [address] [place], [place] [phone] 12/16/2022 Natali Hoffoss Abnormal uterine bleeding N93.9 [address] [place], [place] [phone] 12/16/2022 Natali Hoffoss Cervical discharge N89.8 [facility] [address] [place] [address] 12/16/2022 Natali Hoffoss Encounter for screening examination for sexually transmitted disease Z11.3 and Encounter for screening examination for chlamydial infection Z11.8 [place] [place], [place] [id number] 03/04/2023 Christopher Ernie UTI N39.0 and Chroni c vaginitis N76.1 [place] [address] [place], [place] [phone] 03/04/2023 Christopher Ernie Cervical discharge N89.8 [place] [address] [place], [place] [phone] 04/28/2023 Dejan Bello Recurrent infections B99.9 [facility] [address] [place] [address] 04/28/2023 Dejan Bello Desire for Z31.9 ; Dysfunction of left ovary E28.9 and Infection B99.9 [facility] [address] [place] [address] 06/07/2023 Augustine Bowen Dysuria R30.0 ; Vaginal odor N89.8 and Routine screening for STI (sexually transmitted infection) Z11.3 [facility] [address] [place] [address] 06/07/2023 Augustine Bowen Blood in urine R31.9 ; Urination frequency R35.0 ; Encounter for screening examination for sexually transmitted disease Z11.3 ; Encounter for screening examination for chlamydial infection Z11.8 and Vaginal irritation N89.8 [place] [address] [place], [place] [phone] 06/23/2023 Jeannine Farb Vaginal odor N89.8 ; Vaginal irritation N89.8 ; Menopausal and female climacteric states N95.1 ; Weight gain R63.5 ; Hair thinning L65.9 ; Brain fog R41.89 ; Trouble in sleeping G47.9 ; Mood changes R45.86 ; Decreased libido R68.82 and Low testosterone level in female R79.89 [place] [address] [place], [place] [id number] 06/23/2023 Mammography [facility] Breast cancer screening Z12.31 [place] [address] [place], [place] [phone] 07/06/2023 Jeannine Farb Encounter for other preprocedural examination Z01.818 and Unspecified menopausal and perimenopausal disorder N95.[address] [place] [address] 07/20/2022 Mana Malik [place] [address] [place], [place] [phone] 07/27/2022 Mana Malik [facility] [address] [place] [phone] 12/16/2022 Natali Christiansen [facility] [address] [place] [phone] 12/21/2022 Berta Smith [facility] [address] [place] [phone] 03/04/2023 Bartolo Klein [facility] [address] [place] [address] 06/07/2023 [facility] [address] [place], [place] [phone] 06/10/2023 Augustine [facility] [address] [place], [place] [phone] 06/10/2023 [facility] [address] [place] [address] 07/29/2022 Dejan Bello [facility] [address] [place] [id number] 01/21/2023 Mana Malik ASSESSMENTS Encounter Date Diagnosis Assessment Notes Treatment Notes Treatment Clinical Notes 03/04/2023 UTI (ICD-10 - N39.0) History and symptoms reviewed. UA normal. No further treatment at this time. 04/28/2023 Desire for (ICD-10 - Z31.9) 04/28/2023 [...] these lab results and develop a plan. 06/07/2023 Blood in urine (ICD-10 - R31.9) 06/07/2023 Dysuria (ICD-10 - R30.0) UA reviewed. Plan UC for further evaluation of UTI. Treat if infection identified on UC 06/07/2023 Vaginal odor (ICD-10 - N89.8) BD affirm. Oral treatment with Flagyl preferred Desires repeat testing for ureaplasma/micoplasma since previous partner had other partners and now she has a new partner 06/07/2023 Urination frequency (ICD-10 - R35.0) 07/20/2022 Vaginal discharge (ICD-10 - N89.8) -Complete STI testing today with BD affirm, GC/CT, and myoplasma/ureaplasma. -Patient with chronic, recurrent BV. We will [...] care for all concerns and documenting vist. 07/20/2022 Encounter for screening examination for sexually transmitted disease (ICD-10 - Z11.3) 07/20/2022 Encounter for screening for HIV (ICD-10 - Z11.4) 12/16/2022 Urine test negative (ICD-10 - Z32.02) 03/04/2023 Chronic vaginitis (ICD-10 - N76.1) Symptoms reviewed. Exam findings reviewed with patient. BD Affirm performed. Further treatment pending results. Discussed chronic vaginitis and briefly discussed treatment options. 06/23/2023 Vaginal odor (ICD-10 - N89.8) Discussed that full course of doxycycline for tx of mycoplasma and ureaplasma should be taken and new Rx sent to pharmacy. Instructed pt on no IC during tx and for 7 days after full tx completed. Discussed that full course of oral metronidazole should be taken for tx of +BV, new Rx sent to pharmacy. 06/23/2023 Breast cancer screening (ICD-10 - Z12.31) 07/06/2023 Encounter for other preprocedural examination (ICD-10 - Z01.818) 07/06/2023 Unspecified menopausal and perimenopausal disorder (ICD-10 - N95.9) Hormone pellets inserted today per patient desires and medical recommendation. After care and follow up instructions were reviewed with patient in great detail. Patient states that all questions have been answered to her satisfaction. 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 Discussed that mammogram will not cause rupture of breast implants. Pt will schedule mammogram. Method of contraception: partner with vasectomy 06/07/2023 Encounter for screening examination for chlamydial infection (ICD-10 - Z11.8) 12/16/2022 Chronic vaginitis (ICD-10 - N76.1) 06/23/2023 Weight gain (ICD-10 - R63.5) 12/16/2022 Routine screening for STI (sexually transmitted infection) (ICD-10 - Z11.3) 06/23/2023 Hair thinning (ICD-10 - L65.9) 06/07/2023 Vaginal irritation (ICD-10 - N89.8) 06/23/2023 Brain fog (ICD-10 - R41.89) 06/23/2023 Trouble in sleeping (ICD-10 - G47.9) 06/23/2023 Mood changes (ICD-10 - R45.86) 06/23/2023 Decreased libido (ICD-10 - R68.82) 06/23/2023 Low testosterone level in female (ICD-10 - R79.89) Discussed low testosterone level with pt. Reviewed HRT options, including creams and pellets. Discussed HRT risks/benefits. Discussed potential side effects of fluid retention, swelling, breast tenderness, nipple sensitivity, uterine spotting, mood swings and irritability, acne, hair loss and hair growth. Pt would like to proceed with pellet therapy. 06/08/2023 Other This visit was conducted with the use of audio and video telecommunications system that permits real time communication between the patient and provider. Patient consent for virtual visit was obtained. Originating site: [facility] [place] Distant site: pt home Start time: Stop time: 04/28/2023 Other Total face to face time [...] the transcribed note Authenticated by Dr. Bello. 06/07/2023 Other 20 min. of seraa l time spent in chart prep, obtaining history, reviewing previous results, discussing recommended evaluation, performing exam, and documenting visit note. 06/23/2023 Other 30 minutes spen t preparing/discussing/do cumenting about above diagnoses. 07/06/2023 Other Ice pack x20min, 5 times today Follow up: HRT labs 4 wks. HRT televisit 5 wks. PLAN OF TREATMENT Pending Test Test Name Order Date MAMMOGRAM 06/23/2023 Next Appt Details Provider Name:Jeannine Gomez Danica, 08/02/2023 01:30:00 PM, [address], [place], [phone], Provider Name:Jeannineanton Mishra, 08/09/2023 01:30:00 PM, [address] [place], [place], [phone], Provider Name:Dejan Thompson rd, 08/20/2023 03:00:00 PM, [address], [phone], Insurance Providers Payer Name Payer Address Payer Phone Subscriber Number Group Number Insured Name Patient Relationship to Insured Coverage Start Date Coverage End Date [facility] 2021 [place] (CLIENT bill) [address] [place], [place] [id number] Ten quiñonesanda Self - patient is the insured 2 [facility] 2019 [address] [place], [place] [id number] [facility] Taylor Solis Self - patient is the insured 7 MEDICAL (GENERAL) HISTORY Medical History History ICD Code Kidney Infections Bladder Infections Pelvic infections Chicken Pox Depression/Anxiety Drug or Alcohol problem Asthma Pneumonia Surgical History Surgery Date(Month/Year) C-sesction 08/13/2005 Breast Augmentation 05/08/2006 06/21/2008 D and C 10/2017 Hospitalization History Reason Date(Month/Year) child x2
[2023-07-12] MEDS: BUPIVACAINE 0.25% 30 ML INJECTION (06:10)
[2023-07-12 06:17] VITALS: BP 124/74; PULSE 79; RESP 18; TEMP 36.8; O2SAT 99
[2023-07-12 06:19] VITALS: BP 124/74; PULSE 79; RESP 18; TEMP 36.8
== END 2023-07-12 06:19 | disposition home or self-care (01) ==
LOC: ED 05:35
PROVIDERS: Emergency Provider Family Medicine
DX: K02.9 Dental caries, unspecified (principal); K08.89 Other specified disorders of teeth and supporting structures
CPT/HCPCS: 64400; 99283; 99284; J0665

== ENCOUNTER 2023-07-27 17:44 | Emergency (ER) | payer MEDICAID, SELFPAY ==
[2023-07-27] VITALS (20 sets, daily range): BP systolic 115–163; BP diastolic 81–111; PULSE 74–105; RESP 22; TEMP 37.2; O2SAT 97–100
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
[2023-07-27] MEDS: ONDANSETRON 2 MG/ML inj 4 MG IVP (18:23)
[2023-07-27] MEDS: KETOROLAC 15 MG/ML inj IVP (18:25)
[2023-07-27] MEDS: fentaNYL 100 MCG/2 ML inj 50 MCG IVP (18:25)
--- NOTE | 2023-07-27 18:52 | ED.NURSE ---
Patient's knee washed out with sterile water and hibiclens sponge. Pt tolerated procedure well. Area patted dry. Bleeding controlled throughout cleansing.
--- OUTSIDE RECORDS SUMMARY | 2023-07-27 19:03 | XMS_ITS | Patient Health Record ---
Author Name Unknown Organization [facility] Address [address] [place], [place] [address] Care Team Providers Care Environmental Program Manager Name Role Phone Berta Smith Primary Care Provider Dejan Bello Unavailable [phone] Jeannine Mishra Unavailable [phone] Елена Natali Unavailable [phone] [place] [facility], Mammography Unavailable Unav ailable Bartolo Klein Unavailable [phone] Knig Mana Unavailable [phone] Karjosue Augustine Unavailable [phone] Deidra Macario Unavailable [phone] ALLERGIES Allergen (clinical drug ingredient) Drug/Non Drug Allergy documented on EMR Reaction Allergy Type Onset Date Status morphine Morphine Unknown Drug Allergy Active RESULTS Component Value Reference Range Notes Test, Urine Reviewed date:12/18/2022 09:39:47 AM Interpretation:Negative Performing Lab: Notes/Report: Negative Test, Urine Negative Negative - BD Affirm Reviewed date:12/18/2022 09:40:46 AM Interpretation: Performing Lab: Notes/Report: Yeast NEG Negative - Bacterial Vaginosis POS Negative - Trichomoniasis NEG Negative - Chlamydia & Gonorrhea Reviewed date:12/20/2022 08:03:54 AM Interpretation: Performing Lab:CESAR, [facility]-[address], UkrprnjubvYK[address] Paolo Hauser Notes/Report: CHLAMYDIA TRACHOMATIS RNA, TMA, UROGENITAL NOT DETECTED NOT DETECTED NEISSERIA GONORRHOEAE RNA, TMA, UROGENITAL NOT DETECTED NOT DETECTED COMMENT The analytical performance characteristics of this assay, when used to test SurePath(TM) specimens have been determined by [employer] The modifications have not been cleared or approved by the FDA. This assay has been validated pursuant to the CLIA regulations and is used for clinical purposes. For additional information, please refer to https://education.Babelgum/faq/VLA417 (This link is being provided for information/ educational purposes only.) Urinalysis, Routine - IH Reviewed date:03/09/2023 02:40:40 PM Interpretation: Performing Lab: Notes/Report: Urine Color yellow Yellow - Praveena Appearance clear Clear - Glucose neg Bilirubin neg Ketone neg Specific Krebs 1.030 Blood neg pH 5.5 Protein neg Urobilinogen 0.2 Nitrite neg Leukocytes neg Glucose Bilirubin Ketones Specific Krebs Occult Blood pH Protein Urobilinogen Nitrite Leukocytes BD Affirm Reviewed date:03/09/2023 02:43:08 PM Interpretation: Performing Lab: Notes/Report: Yeast NEG Negative - Bacterial Vaginosis POS Negative - Trichomoniasis NEG Negative - ANTI-MULLERIAN HORMONE ([facility]) , (Insurance Bill ONLY) Reviewed date:05/04/2023 10:03:17 AM Interpretation: Performing Lab:[facility] GARCIA-Chris Ednmivxn[address], JexxljghVK[address] Murtaza Christiansen M.D. Notes/Report: ANTI-MULLERIAN HORMONE ([facility]), FEMALE 4.01 0.18-5.68 ng/mL Urinalysis, Routine - IH Reviewed date:06/07/2023 02:12:37 PM Interpretation: Performing Lab: Notes/Report: Urine Color yellow Yellow - Praveena Appearance clear Clear - Glucose neg Bilirubin neg Ketone neg Specific Krebs 1.030 Blood 3+ 200 pH 5.5 Protein 30 Urobilinogen 0.2 Nitrite neg Leukocytes 2+ 125 Glucose Bilirubin Ketones Specific Krebs Occult Blood pH Protein Urobilinogen Nitrite Leukocytes Test, Urine Reviewed date:07/06/2023 01:45:32 PM Interpretation: Performing Lab: Notes/Report: Test, Urine neg Negative - SURESWAB(R), MYCOPLASMA/UREA PLASMA PANEL, PCR Reviewed date:12/21/2022 12:13:14 PM Interpretation: Performing Lab:[facility] DASH/Chris [place] [facility] [place],[address] [facility] AzqfsuedkkES[address] Ange Esquivel MD,PhD,BERE Notes/Report: SURESWAB(R), MYCOPLASMA HOMINIS, REAL-TIME PCR DETECTED REFEERENCE RANGE: NOT DETECTED Methodology: Real-Time PCR This test was developed and its analytical performance characteristics have been determined by [employer] It has not been cleared or approved by FDA. This assay has been validated pursuant to the CLIA regulations and is used for clinical purposes. MYCOPLASMA GENITALIUM, rRNA,TMA NOT DETECTED REFERENCE RANGE: NOT DETECTED U. PARVUM DNA DETECTED U. UREALYTICUM DNA DETECTED REFERENCE RANGE: NOT DETECTED Methodology: Real-Time PCR This test was developed and its analytical performance characteristics have been determined by [employer] It has not been cleared or approved by FDA. This assay has been validated pursuant to the CLIA regulations and is used for clinical purposes. ALBUMIN Reviewed date:04/30/2023 11:49:38 AM Interpretation: Performing Lab:ROSANGELA [employer], [place] ValentinoNosxIA[address] Paolo Hauser Notes/Report: ALBUMIN 4.7 3.6-5.1 g/dL ESTRADIOL Reviewed date:04/30/2023 11:49:38 AM Interpretation: Performing Lab:ROSANGELA [employer], Clean PETHdziDG[address] Paolo Hauser Notes/Report: ESTRADIOL 59 Reference Range Follicular Phase: 19-144 Mid-Cycle: 64-357 Luteal Phase: 56-214 Postmenopausal: < or = 31 Reference range established on post-pubertal patient population. No pre-pubertal reference range established using this assay. For any patients for whom low Estradiol levels are anticipated (e.g. males, pre-pubertal children and hypogonadal/post-menopausal females), the [employer] [facility] Estradiol, Ultrasensitive, LCMSMS assay is recommended (order code 04950). Please note: patients being treated with the drug fulvestrant (Faslodex(R)) have demonstrated significant interference in immunoassay methods for estradiol measurement. The cross reactivity could lead to falsely elevated estradiol test results leading to an inappropriate clinical assessment of estrogen status. [employer] order code [id number], Ultrasensitive LC/MS/MS demonstrates negligible cross reactivity with fulvestrant. PROGESTERONE Reviewed date:04/30/2023 11:49:38 AM Interpretation: Performing Lab:ROSANGELA [employer], [place] SaenzTfstPJ[address] Paolo Hauser Notes/Report: PROGESTERONE 1.9 Reference Ranges Female Follicular Phase < 1.0 Luteal Phase 2.6-21.5 Post menopausal < 0.5 1st Trimester 4.1-34.0 2nd Trimester 24.0-76.0 3rd Trimester 52.0-302.0 DHEA SULFATE Reviewed date:04/30/2023 11:49:38 AM Interpretation: Performing Lab:ROSANGELA [employer] [address], [place] RyqkQM[address] Paolo Hauser Notes/Report: DHEA SULFATE 148 19-237 mcg/dL FSH Reviewed date:04/30/2023 11:49:38 AM Interpretation: Performing Lab:ROSANGELA wmbly [address], [place] ValentinoYjjdCM[address] Paolo Hauser Notes/Report: FSH 4.6 Reference Range Follicular Phase 2.5-10.2 Mid-cycle Peak 3.1-17.7 Luteal Phase 1.5- 9.1 Postmenopausal 23.0-116.3 LH Reviewed date:04/30/2023 11:49:38 AM Interpretation: Performing Lab:ROSANGELA wmbly [address], [place] DocmYG[address] Paolo Hauser Notes/Report: LH 3.3 Reference Range Follicular Phase 1.9-12.5 Mid-Cycle Peak 8.7-76.3 Luteal Phase 0.5-16.9 Postmenopausal 10.0-54.7 PROLACTIN Reviewed date:04/30/2023 11:49:38 AM Interpretation: Performing Lab:ROSANGELA wmbly [address], [place] HrqmRR[address] Paolo Hauser Notes/Report: PROLACTIN 3.7 Reference Range Females Non- 3.0-30.0 10.0-209.0 Postmenopausal 2.0-20.0 T4, FREE Reviewed date:04/30/2023 11:49:38 AM Interpretation: Performing Lab:ROSANGELA [employer], [place] ValentinoFmzfJP[address] Paolo Hauser Notes/Report: T4, FREE 1.1 0.8-1.8 ng/dL CORTISOL, TOTAL Reviewed date:04/30/2023 11:49:38 AM Interpretation: Performing Lab:ROSANGELA [employer], [place] AlvqFQ[address] Paolo Hauser Notes/Report: CORTISOL, TOTAL 13.5 Reference Range: For 8 a.m.(7-9 a.m.) Specimen: 4.0-22.0 Reference Range: For 4 p.m.(3-5 p.m.) Specimen: 3.0-17.0 * Please interpret above results accordingly * TSH Reviewed date:04/30/2023 11:49:38 AM Interpretation: Performing Lab:Garden[facility] ADAMES Foound-Wood [address], [place] CdafUG[address] Paolo Hauser Notes/Report: TSH 1.25 Reference Range > or = 20 Years 0.40-4.50 Ranges First trimester 0.26-2.66 Second trimester 0.55-2.73 Third trimester 0.43-2.91 T3, FREE Reviewed date:04/30/2023 11:49:39 AM Interpretation: Performing Lab:ROSANGELA [employer], [place] QnrlTT[address] Paolo Hauser Notes/Report: T3, FREE 3.3 2.3-4.2 pg/mL SEX HORMONE BINDING GLOBULIN Reviewed date:04/30/2023 11:49:39 AM Interpretation: Performing Lab:ROSANGELA [employer], [place] EgmjCI[address] Paolo Hauser Notes/Report: SEX HORMONE BINDING GLOBULIN 73 17-124 nmol/ L TESTOSTERONE, TOTAL, LC/MS/M S Reviewed date:05/04/2023 10:02:38 AM Interpretation: Performing Lab:Z3E, [facility]-[address] [address], [address], XycizxwpykMF[address] Earl Mcdonough MD Notes/Report: TESTOSTERONE, TOTAL, MS 26 2-45 ng/dL For additional information, please refer to https://education.Babelgum/faq/TotalTestoste roneLCMSMS (This link is being provided for informational/educational purposes only.) (Note) This test was developed and its analytical performance characteristics have been determined by [employer]. It has not been cleared or approved by the FDA. This assay has been validated pursuant to the CLIA regulations and is used for clinical purposes. [facility] med fusion [address] [address],[address] [place] [address] Earl Mcdonough MD DIHYDROTESTOSTERONE, LC/MS/M S Reviewed date:05/04/2023 10:02:39 AM Interpretation: Performing Lab:EZ, [facility],[address] RamosHighland Ridge HospitalCA[address] Ange Esquivel MD,PhD,BERE Notes/Report: DIHYDROTESTOSTERONE, LC/MS/MS 11 < OR = 20 ng/dL This test was developed and its analytical performance characteristics have been determined by [employer] [facility]. It has not been cleared or approved by FDA. This assay has been validated pursuant to the CLIA regulations and is used for clinical purposes. TESTOSTERONE, FREE Reviewed date:05/04/2023 10:02:39 AM Interpretation: Performing Lab:Z3E, [facility]-TieAlptzi[address] [place] [address], [address] HospitalEisyjjhyftPU[address] Earl Mcdonough MD Notes/Report: TESTOSTERONE, FREE 1.3 0.2-5.0 pg/mL (Note) The concentration of free testosterone is derived from a mathematical model using total testosterone by LCMSMS, sex hormone binding globulin and albumin. This test was developed and its analytical performance characteristics have been determined by [employer] It has not been cleared or approved by the FDA. This assay has been validated pursuant to the CLIA regulations and is used for clinical purposes. [facility] med fusion [address] [address],[address] [place] [address] Earl Mcdonough MD SURESWAB(R), MYCOPLASMA/UREA PLASMA PANEL, PCR Reviewed date:06/10/2023 04:35:42 PM Interpretation: Performing Lab:EZ, [facility],[address] RamosHighland Ridge HospitalCA[address] Ange Esquivel MD,PhD,BERE Notes/Report: SURESWAB(R), MYCOPLASMA HOMINIS, REAL-TIME PCR DETECTED REFEERENCE RANGE: NOT DETECTED Methodology: Real-Time PCR This test was developed and its analytical performance characteristics have been determined by [employer] It has not been cleared or approved by FDA. This assay has been validated pursuant to the CLIA regulations and is used for clinical purposes. MYCOPLASMA GENITALIUM, rRNA,TMA DETECTED REFERENCE RANGE: NOT DETECTED U. PARVUM DNA DETECTED U. UREALYTICUM DNA DETECTED REFERENCE RANGE: NOT DETECTED Methodology: Real-Time PCR This test was developed and its analytical performance characteristics have been determined by [employer] It has not been cleared or approved by FDA. This assay has been validated pursuant to the CLIA regulations and is used for clinical purposes. BV/VAGINITIS PANEL DNA PROBE Reviewed date:06/10/2023 08:59:51 AM Interpretation: Performing Lab:CESAR [employer], EzfgylohknRJ[address] Paolo Hauser Notes/Report: TRICHOMONAS: NOT DETECTED NOT DETECTED GARDNERELLA: DETECTED NOT DETECTED Increased levels of G. vaginalis may not be significant in the absence of signs and symptoms of bacterial vaginosis. DIONTE: NOT DETECTED NOT DETECTED Chlamydia & Gonorrhea Reviewed date:06/10/2023 04:28:18 PM Interpretation: Performing Lab:CESAR [facility] Sidni-[address], QiivbwmwllMQ[address] Paolo Hauser Notes/Report: CHLAMYDIA TRACHOMATIS RNA, TMA, UROGENITAL NOT DETECTED NOT DETECTED NEISSERIA GONORRHOEAE RNA, TMA, UROGENITAL NOT DETECTED NOT DETECTED COMMENT The analytical performance characteristics of this assay, when used to test SurePath(TM) specimens have been determined by [employer] The modifications have not been cleared or approved by the FDA. This assay has been validated pursuant to the CLIA regulations and is used for clinical purposes. For additional information, please refer to https://education.[employer]/faq/NPG618 (This link is being provided for information/ educational purposes only.) CULTURE, URINE, ROUTINE Reviewed date:06/10/2023 09:38:46 AM Interpretation: Performing Lab:[facility]ia ADAMES-Bl[address] [facility], Bl[address] RichardsonPfhoUK[address] Paolosandra Hauser Notes/Report: CULTURE, URINE, ROUTINE SEE NOTE CULTURE, URINE, ROUTINE Micro Number: [id number] Test Status: Final Specimen Source: Urine, clean [...] female climacteric states (N95.1) Active confirmed Menopause (297254710) Problem Unspecified menopausal and perimenopausal disorder (N95.9) Active confirmed Menopausal and postmenopausal disorders (269612697) Problem Encounter for screening for infections with a predominantly sexual mode of transmission (Z11.3) Active confirmed Sexually transmitted infectious disease (0114207) Problem Amenorrhea (N91.2) Active confirmed Amenorrhea (01933395) Problem Abnormal uterine bleeding (N93.9) Active confirmed Abnormal ut erine bleeding (71297311534693) Problem Chronic vaginitis (N76.1) Active confirmed 80760546 Problem 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 (02328850) Problem Discharge of vagina (N89.8) Active confirmed Vaginal disch arge (738500929) Problem Trouble in sleeping (G47.9) Active confirmed 679711279 Problem Encounter for screening for HIV (Z11.4) Active confirmed Human immunodeficiency virus screening (103158522) Problem UTI (N39.0) Active confirmed Urinary tr act infection (29693224) VITAL SIGNS Blood pressure diastolic 80 mm Hg 07/06/2023 Height 68 in 07/06/2023 Blood pressure systolic 132 mm Hg 07/06/2023 Weight 175.2 lbs 07/06/2023 BMI 26.64 kg/m2 07/06/2023 Encounters Encounter Location Date Provider Diagnosis [place] [address] [place], [place] [phone] 10/09/2022 [facility] [address] [place], [place] [phone] 04/28/2023 [facility] [address] [place], [place] [id number] 05/18/2023 [facility] [address] [place], [place] [id number] 06/08/2023 [facility] [address] [facility] [address] [place] [address] 06/16/2023 Deidra Macario [facility] [address] [place], [place] [id number] 06/23/2023 Jeannine Mishra [facility] [address] [place], [place] [id number] 12/16/2022 Natali Hoffoss Amenorrhea N91.2 ; Urine test negative Z32.02 ; Vaginal discharge N89.8 ; Chronic vaginitis N76.1 and Routine screening for STI (sexually transmitted infection) Z11.3 [place] [address] [place], [place] [id number] 12/16/2022 Natali Hoffoss Abnormal uterine bleeding N93.9 [place] [address] [place], [place] [id number] 12/16/2022 Natali Hoffoss Cervical discharge N89.8 [facility] [address] [place] [address] 12/16/2022 Natali Hoffoss Encounter for screening examination for sexually transmitted disease Z11.3 and Encounter for screening examination for chlamydial infection Z11.8 [place] [address] [place], [place] [id number] 03/04/2023 Christracheler Ernie UTI N39.0 and Chroni c vaginitis N76.1 [place] [address] [place], [place] [id number] 03/04/2023 Christopher Ernie Cervical discharge N89.8 [place] [address] [place], [place] [id number] 04/28/2023 Dejan Bello Recurrent infections B99.9 [facility] [address] [place] [address] 04/28/2023 Dejan Bello Desire for Z31.9 ; Dysfunction of left ovary E28.9 and Infection B99.9 [facility] [address] [place] [address] 06/07/2023 Augustine Bowen Dysuria R30.0 ; Vaginal odor N89.8 and Routine screening for STI (sexually transmitted infection) Z11.3 [facility] [address] [place] [address] 06/07/2023 Augustine Bowen Blood in urine R31.9 ; Urination frequency R35.0 ; Encounter for screening examination for sexually transmitted disease Z11.3 ; Encounter for screening examination for chlamydial infection Z11.8 and Vaginal irritation N89.8 [place] [address] [place] [id number] 06/23/2023 Jeannine Farb Vaginal odor N89.8 ; Vaginal irritation N89.8 ; Menopausal and female climacteric states N95.1 ; Weight gain R63.5 ; Hair thinning L65.9 ; Brain fog R41.89 ; Trouble in sleeping G47.9 ; Mood changes R45.86 ; Decreased libido R68.82 and Low testosterone level in female R79.89 [facility] [address] [place] [id number] 06/23/2023 Mammography [facility] Breast cancer screening Z12.31 [facility] [address] [place] [id number] 07/06/2023 Jeannine Farb Encounter for other preprocedural examination Z01.818 and Unspecified menopausal and perimenopausal disorder N95.9 [facility] [address] [place] [id number] 07/27/2022 Mana Malik [facility] [address] [facility] ([place], [place]) [address] [place] [address] 12/16/2022 Natali Christiansen [facility] [address] [facility] ([place], [place]) [address] [place] [address] 12/21/2022 Berta Smith [facility] [address] [facility] ([place], [place]) [address] [place] [address] 03/04/2023 Bartolo Klein [facility] [address] [place] [address] 06/07/2023 Augustine Bowen [facility] [address] [place] [id number] 06/10/2023 Augustine Bowen [facility] [address] [place] [id number] 06/10/2023 Augustine Bowen [facility] [address] [place] [address] 07/29/2022 Dejan Bello [facility] [address] [facility] ([place], [place]) [address] [place] [phone] 01/21/2023 Mana Malik ASSESSMENTS Encounter Date Diagnosis [...] partner 06/07/2023 Urination frequency (ICD-10 - R35.0) 12/16/2022 Encounter for screening examination for sexually [...] care for all concerns and documenting vist. 12/16/2022 Urine test negative (ICD-10 - Z32.02) [...] N89.8) 12/16/2022 Vaginal discharge (ICD-10 - N89.8) 06/23/2023 Vaginal irritation (ICD-10 [...] for virtual visit was obtained. [place] [facility] [place] pt home Start [...] Dr. Bello. 06/07/2023 Other 20 min. of mana gomes time spent in chart prep, obtaining history, [...] MAMMOGRAM 06/23/2023 Next Appt Details Provider Name:Jeannine Mishra, 08/02/2023 01:30:00 PM, [address] [place], [phone], Provider Name:Jeannine Mishra, 08/09/2023 01:30:00 PM, [address] [place], [phone], Provider Name:Dejan Thompson rd, 08/20/2023 03:00:00 PM, [address] [place], [phone], Insurance Providers Payer Name Payer Address Payer Phone Subscriber Number Group Number Insured Name Patient Relationship to Insured Coverage Start Date Coverage End Date [facility] 2021 [place] (CLIENT bill) [address] [place], [place] [id number] Taylor Solis Self - patient is the insured 2 [facility] 2019 [address] [place], [place] [id number] [facility] Taylor Solis Self - patient is the insured 7 MEDICAL (GENERAL) HISTORY Medical History History ICD Code Kidney Infections Bladder Infections Pelvic infections Chicken Pox Depression/Anxiety Drug or Alcohol problem Asthma Pneumonia Surgical History Surgery Date(Month/Year) C-sesction 08/13/2005 Breast Augmentation 05/08/2006 06/21/2008 D and C 10/2017 Hospitalization History Reason Date(Month/Year) child x2
[2023-07-27] MEDS: TETANUS/DIPHTH/PERTUSSIS 0.5 ML SYRINGE IM (19:48)
== END 2023-07-27 19:53 | disposition home or self-care (01) ==
PROVIDERS: Emergency Provider Family Medicine
DX: S81.011A Laceration without foreign body, right knee, initial encounter (principal); T14.8XXA Other injury of unspecified body region, initial encounter; V86.56XA Driver of dirt bike or motor/cross bike injured in nontraffic accident, initial encounter
CPT/HCPCS: 12002; 90471; 90715; 94761; 96374; 96375; 99283; 99284; 99291; J1885; J2405; J3010

== ENCOUNTER 2023-11-21 07:33 | Emergency (ER) | payer MEDICAID, SELFPAY ==
[2023-11-21 07:43] VITALS: BP 131/78; PULSE 80; RESP 18; TEMP 36.8; O2SAT 99; BMI 27.4
[2023-11-21 07:53] LABS: Appearance Urine Cloudy (Clear); Bilirubin Urine Negative (Negative); Blood Urine 3+ (Negative); Color Urine Dark yellow (Yellow); Glucose Urine Negative (Negative); Ketones Urine Negative (Negative); Leukocyte Esterase Urine 1+ (Negative); Nitrite Urine Negative (Negative); Protein Urine 2+ (Negative); Specific Gravity Urine >= 1.030 (1.000-1.030); Urobilinogen Urine 0.2 (0.2-1.0)
--- NOTE | 2023-11-21 08:03 | ED_ITS ---
HPI - General Adult General Chief complaint: Urogenital Problems, Female Stated complaint: bladder infection Time Seen by Provider: 11/21/23 07:59 Source: patient Mode of arrival: ambulatory Limitations: no limitations History of Present Illness HPI narrative: 38-year-old female coming in today complaining of increased urinary frequency or urgency. Patient states that she has had UTIs in the past and this feels very similar to what she has felt in the past. She denies any fevers or chills. No nausea or vomiting. No flank pain or abdominal discomfort. Related Data Home Medications Medication Instructions Recorded Confirmed lisdexamfetamine 60 mg capsule 60 mg PO DAILY 07/27/23 07/27/23 (Vyvanse) Allergies Allergy/AdvReac Type Severity Reaction Status Date / Time morphine AdvReac Severe Anaphylaxis Verified 07/27/23 17:49 Review of Systems Status of ROS: Reports: 6 or more systems reviewed and unremarkable except as noted in History and below [facility] Medical History Tear of meniscus of right knee ?S83.206A - Unspecified tear of unspecified meniscus, current injury, right k nee, initial encounter (ICD-10) History of induced ?Z98.890 - Other specified postprocedural states (ICD-10) PTSD (post-traumatic stress disorder) ?F43.10 - Post-traumatic stress disorder, unspecified (ICD-10) ADHD (attention deficit hyperactivity disorder) ?F90.9 - Attention-deficit hyperactivity disorder, unspecified type (ICD-10) Surgical History History of section ?Z98.891 - History of uterine scar from previous surgery (ICD-10) History of breast augmentation ?Z98.82 - Breast implant status (ICD-10) Social History Smoking Status: Current every day smoker What tobacco products do you use: cigarettes Smoking packs per day: 0.5 Smoking cigarettes per day: 10.0 Years smoked: 25 Smoking pack-years: 12.50 Do you use any of these nicotine containing products: Vaping Products Second hand tobacco smoke exposure: No How often do you have a drink containing alcohol: never How often do you have six or more drinks on one occasion: Never AUDIT-C Alcohol total score: 0 Non-prescribed substance use: denies use service: No Exam Narrative: Exam Narrative: Well-nourished well-developed patient in no acute distress. Alert and oriented. Answers questions appropriately. Mood and affect are appropriate. Thoughts are goal oriented and rational. No tangential or magical thinking noted. Patient speaks in full sentences without needing to catch her breath. Smells strongly of tobacco. HEENT: Normocephalic atraumatic. Pupils are equally round reactive to light. Extraocular muscles are intact. Conjunctivae are moist without any icterus noted. Moist mucous membranes. Abdomen: Soft and nontender. Skin: Well perfused without any obvious rashes. Const: Vital Signs, click to edit/add: Vital Signs - 24 hr 11/21/23 07:43 Temperature 98.2 F Pulse Rate [Pulse Oximeter] 80 Respiratory Rate 18 Blood Pressure [Ri ght Upper Arm] 131/78 Pulse Oximetry 99 Oxygen Delivery Me thod Room Air Course Course ED Course: Urinalysis grossly positive for signs of infection. Vital Signs Vital signs: Initial Vital Signs Temperature 98.2 F 11/21/23 07:43 Temperature Source Temporal Artery Scan 11/21/23 07:43 Pulse Rate 80 11/21/23 07:43 Respiratory Rate 18 11/21/23 07:43 Blood Pressure 131/78 11/21/23 07:43 Blood Pressure Mean 95 11/21/23 07:43 Pulse Oximetry 99 11/21/23 07:43 Oxygen Delivery Method Room Air 11/21/23 07:43 Vital Signs Temperature 98.2 F 11/21/23 07:43 Pulse Rate 80 11/21/23 07:43 Respiratory Rate 18 11/21/23 07:43 Blood Pressure 131/78 11/21/23 07:43 Pulse Oximetry 99 11/21/23 07:43 Oxygen Delivery Method Room Air 11/21/23 07:43 Temperature 98.2 F 11/21/23 07:43 Pulse Rate 80 11/21/23 07:43 Respiratory Rate 18 11/21/23 07:43 Blood Pressure 131/78 11/21/23 07:43 Pulse Oximetry 99 11/21/23 07:43 Oxygen Delivery Method Room Air 11/21/23 07:43 Medical Decision Making MDM Narrative Medical decision making narrative: 38-year-old female with UTI. Will treat with Macrobid. Lab Data Lab results reviewed: Yes I reviewed the patient's lab results Labs: Lab Results 11/21/23 Range/Units 07:39 Urine Color Dark yellow (Yellow) Urine Appearance Cloudy A (Clear) Urine pH 6.0 (5.0-8.5) Ur Specific [place] >= 1.030 (1.000-1.030) Urine Protein 2+ A (Negative) Urine Glucose (UA) Negative (Negative) Urine Ketones Negative (Negative) Urine Blood 3+ A (Negative) Urine Nitrite Negative (Negative) Urine Bilirubin Negative (Negative) Urine Urobilinogen 0.2 (0.2-1.0) Ur Leukocyte Esterase 1+ A (Negative) Discharge Plan Discharge Clinical Impression: Urinary tract infection Patient Disposition: Home, Self-Care Condition: Stable Additional Instructions: Take all antibiotics as prescribed. If your symptoms are not resolving, follow- up with primary care provider. Prescription sent to [facility]. Prescriptions: No Action Vyvanse 60 mg capsule 60 mg PO DAILY Follow Up/Referrals: Provider,Not a Local [Primary Care Provider] - Stand Alone Forms: [facility] Info Instructions
[2023-11-21 08:07] LABS: Bacteria Urine Moderate; RBC Urine 25-50 (0-2); Squamous Epithelial Cell Urine Few (None-Few)
--- OUTSIDE RECORDS SUMMARY | 2023-11-21 08:11 | XMS_ITS | Encounter Summary ---
Author Name Unknown Organization [facility] Address [address] [place] [address]. [place] [address] Care Team Providers Care Vegetable Thinner Name Role Phone [facility] Primary Care Provide r Encounter Details Date Type Department Care Team (Latest Contact Info) Description 09/04/2023 Travel Social History Tobacco Use Types Packs/Day Years Used Date Smoking Tobacco: Never Assessed Adolescent Education Answer Date Record ed Getting School Help Needed Not on file 07/31 Sex and Gender Information Value Date Recorded Sex Assigned at Not on file Gender Identity Not on file Sexual Orientation Not on file documented as of this encounter Plan of Treatment Not on file documented as of this encounter Visit Diagnoses Not on filedocumented in this encounter Additional Health Concerns Infection Onset Date Last Indicated Resolved Time Rule Out Mumps 09/04/2023 09/04/2023 09/10/2023 11 :39 PM CDT documented as of this encounter Care Teams Vegetable Thinner Relationship Specialty Start Date End Date [facility] [address] [place] [address] PCP - General 09/04/23 documented as of this encounter
--- OUTSIDE RECORDS SUMMARY | 2023-11-21 08:11 | XMS_ITS | Referral Summary ---
Author Name Unknown Organization [place] Address Formerly [facility] [place] [address] Care Team Providers Care Cable Driller Name Role Phone Clinic, [facility] Primary Care Provide r Encounters Date Type Department Care Team Description 09/04/2023 8:33 PM CDT - 09/07/2023 11:44 AM CDT Hospital Encounter [facility] Observation Dept [address] [place] [address] Bartolo Andujar MD Kriz, DO Sri Pickens, Bartolo Doss MD Parotitis, acute; Cellulitis of neck Discharge Disposition: Home or Self Care 09/04/2023 External Order Results Formerly [facility] [address] [place] [address] Outside, Provider 09/04/2023 Travel from Last 3 Months Allergies Active Allergy Reactions Criticality Noted Date Comments Morphine Angioedema 07/29/2023 Lisdexamfetamine 09/06/2023 Medications Medication Sig Dispensed Refills Start Date End Date Status lisdexamfetamine (VYVANSE) 60 MG capsule Take 60 mg by mouth See Admin Instructions Pt take daily on Wednesday through Wednesday 0 Active azithromycin (ZITHROMAX) 250 MG tablet Take 250 mg by mouth daily Written on 09/03, pt has not started Day 1 500mg, then 250mg daily x 4 days 0 Active amoxicillin-clavulan ate (AUGMENTIN) 875-125 MG tablet Take 1 tablet by mouth 2 times daily Lot: 14 days 0 09/03/2023 Active doxycycline monohydrate (ADOXA) 100 MG tablet Take 100 mg by mouth daily Pt did not start yet 0 Active acetaminophen (TYLENOL) 325 MG tabletIndications:Pa rotitis, acute Take 2 tablets (650 mg) by mouth every 6 hours as needed for mild pain or other (and adjunct with moderate or severe pain or per patient request) 0 09/07/2023 Active ibuprofen (ADVIL/MOTRIN) 200 MG tabletIndications:Pa rotitis, acute Take 2 tablets (400 mg) by mouth every 6 hours as needed for inflammatory pain 0 09/07/2023 Active Active Problems Problem Noted Date Diagnosed Date Cellulitis of neck 09/04/2023 Parotitis, acute 09/04/2023 Social History Tobacco Use Types Packs/Day Years Used Date Smoking Tobacco: Never Assessed Adolescent Education Answer Date Record ed Getting School Help Needed Not on file 07/31 Sex and Gender Information Value Date Recorded Sex Assigned at Not on file Gender Identity Not on file Sexual Orientation Not on file Last Filed Vital Signs Vital Sign Reading Time Taken Comments Blood Pressure 122/80 09/07/2023 7:00 AM CDT Pulse 80 09/07/2023 7:00 AM CDT Temperature 36.8 ??C (98.2 ??F) 09/07/2023 7:00 AM CD T Respiratory Rate 16 09/07/2023 7:00 AM CDT Oxygen Saturation 100% 09/07/2023 4:34 AM CDT Inhaled Oxygen Concentration - - Weight 82.6 kg (182 lb) 09/06/2023 4:48 AM CDT Height 170.2 cm (5' 7) 09/05/2023 4:00 AM CDT Body Mass Index 28.51 09/05/2023 4:00 AM CDT Plan of Treatment Not on file Procedures Procedure Name Priority Date/Time Associated Diagnosis Comments POTASSIUM Routine 09/07/2023 6:08 AM CDT CRP INFLAMMATION Routine 09/06/2023 5:08 AM CDT COMPREHENSIVE METABOLIC PANEL Routine 09/06/2023 5:08 AM CDT CBC WITH PLATELETS Routine 09/06/2023 5: 08 AM CDT URINE DRUG SCREEN Routine 09/05/2023 4:3 0 PM CDT URINE DRUG SCREEN PANEL Routine 09/05/2023 4:30 PM CDT POTASSIUM Routine 09/05/2023 6:33 AM CDT MUMPS DIAGNOSTIC PCR STAT 09/04/2023 10:21 PM CDT US HEAD NECK SOFT TISSUE STAT 09/04/2023 9:59 PM CDT CBC WITH PLATELETS & DIFFERENTIAL STAT 09/04/2023 8:57 PM CDT EBV DNA PCR QUANTITATIVE WHOLE BLOOD Add-On 09/04/2023 8:57 PM CDT CBC WITH PLATELETS AND DIFFERENTIAL STAT 09/04/2023 8:57 PM CDT BASIC METABOLIC PANEL STAT 09/04/2023 8:57 PM CDT CRP INFLAMMATION STAT 09/04/2023 8:57 PM CDT from Last 3 Months Results * Potassium (09/07/2023 6:08 AM CDT) Only the most recent of2 resultswithin the time period is included. Potassium 3.9 3.4 - 5.3 mmol/L 09/07/2023 6:40 AM CDT LABORATORY Blood STRUCTURE OF RIGHT HAND / Unknown Venipuncture / Unknown 09/07/2023 6:08 AM CDT 09/07/2023 6:17 AM CDT Misbil Tamar Layton APRN SINGLE STAYER OPERATOR LAB - BLOOD ORDERABLES LABORATORY [facility] [address] Lab (1st floor, no room number) [place] [address], [facility] [phone] * (ABNORMAL) CRP inflammation (09/06/2023 5:08 AM CDT) Only the most recent of2 resultswithin the time period is included. CRP Inflammation 8.68(H) <5.00 mg/L 09/06/2023 6:19 AM CDT [facility] Blood STRUCTURE OF RIGHT UPPER LIMB / Unknown Venipuncture / Unknown 09/06/2023 5:08 AM CDT 09/06/2023 6:01 AM CDT Misbil Tamar VamsiGovindShericecliff QA AUTOMATION DEVELOPER SINGLE STAYER OPERATOR LAB - BLOOD ORDERABLES LABORATORY [facility] [address] [facility] Lab (1st floor, no room number) [place] [address], [facility] [phone] * (ABNORMAL) Comprehensive metabolic panel (09/06/2023 5:08 AM CDT) Pathologist [facility] Sodium 138 135 - 145 mmol/L 09/06/2023 6:19 AM CDT LABORATORY Comment:Reference intervals for this test were updated on 08/03/2023 to more accurately reflect our healthy population. There may be differences in the flagging of prior results with similar values performed with this method. Interpretation of those prior results can be made in the context of the updated reference intervals. Potassium 4.7 3.4 - 5.3 mmol/L 09/06/2023 6:19 AM CDT LABORATORY Carbon Dioxide (CO2) 26 22 - 29 mmol/L 09/06/2023 6:19 AM CDT LABORATORY Anion Gap 8 7 - 15 mmol/L 09/06/2023 6:19 AM CDT [facility] Urea Nitrogen 8.4 6.0 - 20.0 mg/dL 09/06/2023 6:19 AM CDT LABORATORY Creatinine 0.66 0.51 - 0.95 mg/dL 09/06/2023 6:19 AM CDT [facility] GFR Estimate >90 >60 mL/min/1. 73m2 09/06/2023 6:19 AM CDT [facility] Calcium 9.2 8.6 - 10.0 mg/dL 09/06/2023 6:19 AM CDT [facility] Chloride 104 98 - 107 mmol/L 09/06/2023 6:19 AM CDT [facility] Glucose 182(H) 70 - 99 mg/dL 09/06/2023 6:19 AM CDT [facility] Alkaline Phosphatase 80 35 - 104 U/L 09/06/2023 6:19 AM CDT [facility] AST 46(H) 0 - 45 U/L 09/06/2023 6:19 AM CDT [facility] Comment:Reference intervals for this test were updated on 04/19/2023 to more accurately reflect our healthy population. There may be differences in the flagging of prior results with similar values performed with this method. Interpretation of those prior results can be made in the context of the updated reference intervals. ALT 74(H) 0 - 50 U/L 09/06/2023 6:19 AM CDT [facility] Comment:Reference intervals for this test were updated on 04/19/2023 to more accurately reflect our healthy population. There may be differences in the flagging of prior results with similar values performed with this method. Interpretation of those prior results can be made in the context of the updated reference intervals. Protein Total 6.5 6.4 - 8.3 g/dL 09/06/2023 6:19 AM CDT [facility] Albumin 3.6 3.5 - 5.2 g/dL 09/06/2023 6:19 AM CDT [facility] Bilirubin Total 0.2 <=1.2 mg/dL 09/06/2023 6:19 AM CDT [facility] Blood STRUCTURE OF RIGHT UPPER LIMB / Unknown Venipuncture / Unknown 09/06/2023 5:08 AM CDT 09/06/2023 6:01 AM CDT Misbil Tamar Layton APRN SINGLE STAYER OPERATOR LAB - BLOOD ORDERABLES LABORATORY [facility] [address] [facility] ([facility], no room number) [place] [address], [facility] [phone] * (ABNORMAL) CBC with platelets (09/06/2023 5:08 AM CDT) WBC Count 12.2(H) 4.0 - 11.0 10e3/uL 09/06/2023 6:10 AM CDT [facility] RBC Count 4.60 3.80 - 5.20 10e6/uL 09/06/2023 6:10 AM CDT [facility] Hemoglobin 13.9 11.7 - 15.7 g/dL 09/06/2023 6:10 AM CDT [facility] Hematocrit 41.2 35.0 - 47.0 % 09/06/2023 6:10 AM CDT [facility] MCV 90 78 - 100 fL 09/06/2023 6:10 AM CDT [facility] MCH 30.2 26.5 - 33.0 pg 09/06/2023 6:10 AM CDT [facility] MCHC 33.7 31.5 - 36.5 g/dL 09/06/2023 6:10 AM CDT [facility] RDW 13.3 10.0 - 15.0 % 09/06/2023 6:10 AM CDT [facility] Platelet Count 245 150 - 450 10e3/uL 09/06/2023 6:10 AM CDT [facility] Blood STRUCTURE OF RIGHT UPPER LIMB / Unknown Venipuncture / Unknown 09/06/2023 5:08 AM CDT 09/06/2023 6:09 AM CDT Misbil Tamar Layton APRN SINGLE STAYER OPERATOR LAB - BLOOD ORDERABLES [facility] LABORATORY [facility] [address] Lab (1st floor, no room number) [place] [address], [facility] [phone] * Urine Drug Screen Panel (09/05/2023 4:30 PM CDT) [facility] Amphetamines Urine Screen Negative Screen Negative 09/05/2023 5:08 PM CDT [facility] Comment:Cutoff for a negativ e amphetamine is less than 500 ng/mL. Barbituates Urine Screen Negative Screen Negative 09/05/2023 5:08 PM CDT [facility] Comment:Cutoff for a negativ e barbiturate is less than 200 ng/mL. Benzodiazepine Urine Screen Negative Screen Negative 09/05/2023 5:08 PM CDT [facility] Comment:Cutoff for a negativ e benzodiazepine is less than 100 ng/mL. Cannabinoids Urine Screen Negative Screen Negative 09/05/2023 5:08 PM CDT [facility] Comment:Cutoff for a negativ e cannabinoid is less than 50 ng/mL. Cocaine Urine Screen Negative Screen Negative 09/05/2023 5:08 PM CDT [facility] Comment:Cutoff for a negativ e cocaine is less than 300 ng/mL. Fentanyl Qual Urine Screen Negative Screen Negative 09/05/2023 5:08 PM CDT [facility] Comment:Cutoff for negative fentanyl is less than 5 ng/mL. Opiates Urine Screen Negative Screen Negative 09/05/2023 5:08 PM CDT [facility] Comment:Cutoff for a negativ e opiate is less than 300 ng/mL. PCP Urine Screen Negative Screen Negative 09/05/2023 5:08 PM CDT LABORATORY Comment:Cutoff for a negativ e PCP is less than 25 ng/mL. Urine MID-STREAM URINE SPECIMEN / Unknown Non-blood Collection / Unknown 09/05/2023 4:30 PM CDT 09/05/2023 4:44 PM CDT Misbil Tamar Layton APRN SINGLE STAYER OPERATOR LAB - URINE ORDERABLES [facility] [address] [facility] Lab (1st floor, no room number) [place] [address], [facility] [phone] * Mumps Diagnostic, PCR (09/04/2023 10:21 PM CDT) Mumps Confirmation PCR Negative Negative 10/04/2023 3:16 PM LATCHER [facility] See Scanned Result MUMPS DIAGNOSTIC PCR-Scanned 10/04/2023 3:16 PM LATCHER [facility] Swab ORAL CAVITY STRUCTURE / Unknown Non-blood Collection / Unknown 09/04/2023 10:21 PM CDT 09/04/2023 10:31 PM CDT Narrative [facility] - 10/04/2023 3:16 PM LATCHER Verified by Attala, Sandra A on 09/08/2023. Bartolo Andujar MD LAB - BODY FLUID S ORDERABLES [place] [facility] [place] [facility] Lab Building [address] [place] [address] * US Head Neck Soft Tissue (09/04/2023 9:59 PM CDT) Anatomical Region Laterality Modality Head Ultrasound 09/04/2023 9:59 PM CDT Impressions 09/04/2023 10:09 PM CDT IMPRESSION: Targeted ultrasound over the right parotid gland. Right parotid gland demonstrates a cystic lesion measuring 1.3 x 1.2 x 0.7 cm. There is no internal Doppler signal. There is isoechoic mural nodule. Findings may reflect abscess, hematoma, nonspecific cystic lesion. A cystic parotid gland tumor is possible. Narrative 09/04/2023 10:09 PM CDT EXAM: US HEAD NECK SOFT TISSUE LOCATION: [facility] DATE: 09/04/2023 INDICATION: Right parotitis, worsening, eval signs of abscess COMPARISON: None. TECHNIQUE: Routine. Procedure Note Myke Clement MD - 09/04/2023 EXAM: US HEAD NECK SOFT TISSUE LOCATION: [facility] DATE: 09/04/2023 INDICATION: Right parotitis, worsening, eval signs of abscess COMPARISON: None. TECHNIQUE: Routine. IMPRESSION: Targeted ultrasound over the right parotid gland. Right parotid gland demonstrates a cystic lesion measuring 1.3 x 1.2 x 0.7cm. There is no internal Doppler signal. There is isoechoic mural nodule.Findings may reflect abscess, hematoma, nonspecific cystic lesion. Acystic parotid gland tumor is possible. Bartolo Andujar MD IMG US ORDERABLE S * (ABNORMAL) CBC with platelets and differential (09/04/2023 8:57 PM CDT) WBC Count 12.9(H) 4.0 - 11.0 10e3/uL 09/04/2023 9:06 PM CDT [facility] LAB[facility] RBC Count 4.12 3.80 - 5.20 10e6/uL 09/04/2023 9:06 PM CDT [facility] Hemoglobin 12.3 11.7 - 15.7 g/dL 09/04/2023 9:06 PM CDT [facility] Hematocrit 37.8 35.0 - 47.0 % 09/04/2023 9:06 PM CDT [facility] MCV 92 78 - 100 fL 09/04/2023 9:06 PM CDT [facility] MCH 29.9 26.5 - 33.0 pg 09/04/2023 9:06 PM CDT [facility] MCHC 32.5 31.5 - 36.5 g/dL 09/04/2023 9:06 PM CDT [facility] RDW 13.9 10.0 - 15.0 % 09/04/2023 9:06 PM CDT [facility] Platelet Count 209 150 - 450 10e3/uL 09/04/2023 9:06 PM CDT [facility] % Neutrophils 68 % 09/04/2023 9:06 PM CDT [facility] % Lymphocytes 25 % 09/04/2023 9:06 PM CDT [facility] % Monocytes 5 % 09/04/2023 9:06 PM CDT [facility] % Eosinophils 2 % 09/04/2023 9:06 PM CDT [facility] % Basophils 0 % 09/04/2023 9:06 PM CDT [facility] % Immature Granulocytes 0 % 09/04/2023 9:06 PM CDT [facility] NRBCs per 100 WBC 0 <1 /100 023 9:06 PM CDT [facility] Absolute Neutrophils 8.7(H) 1.6 - 8.3 10e3/uL 09/04/2023 9:06 PM CDT [facility] Absolute Lymphocytes 3.2 0.8 - 5.3 10e3/uL 09/04/2023 9:06 PM CDT [facility] Absolute Monocytes 0.7 0.0 - 1.3 10e3/uL 09/04/2023 9:06 PM CDT [facility] Absolute Eosinophils 0.2 0.0 - 0.7 10e3/uL 09/04/2023 9:06 PM CDT [facility] Absolute Basophils 0.0 0.0 - 0.2 10e3/uL 09/04/2023 9:06 PM CDT [facility] Absolute Immature Granulocytes 0.0 <=0.4 10e3/uL 09/04/2023 9:06 PM CDT [facility] Absolute NRBCs 0.0 10e3/uL 09/04/2023 9:06 PM CDT [facility] Blood VENOUS LINE / Unknown Venipuncture / Unknown 09/04/2023 8:57 PM CDT 09/04/2023 9:03 PM CDT Bartolo Andujar MD LAB - BLOOD TIFFANIE KAUR [facility] LABORATORY [facility] [address] Lab (1st floor, no room number) [place] [address], [facility] [phone] * (ABNORMAL) EBV DNA PCR Quantitative Whole Blood (09/04/2023 8:57 PM CDT) EBV DNA Copies/mL <500(A) Not Detected copies/mL 09/07/2023 1:43 PM CDT [facility] Comment:EBV DNA Detected bel ow the reportable range of 500 copies/mL EBV log <2.7 09/07/2023 1:43 PM CDT [facility] Comment:Vahid bar virus no t detected. Log not calculated. Blood VENOUS LINE / Unknown Venipuncture / Unknown 09/04/2023 8:57 PM CDT 09/04/2023 9:03 PM CDT Narrative [facility] - 09/07/2023 1:43 PM CDT The real-time quantitative EBV assay was developed and its performance characteristics determined by the [facility] at [facility]. The primers and probes for each analyte are Analyte Specific Reagents (ASRs) manufactured by [employer]. ASRs are used in many laboratory tests necessary for standard medical care and generally do not require U.S. Food and Drug Administration approval. The FDA has determined that such clearance or approval is not necessary. The test is used for clincal purposes. It should not be regarded as investigational or for research. This laboratory is certified under the Clinical Laboratory Improvement Amendments of 1988 (CLIA-88) as qualified to perform high complexity clinical laboratory testing. The real-time quantitative EBV assay was developed and its performance characteristics determined by the [facility] at [facility]. The primers and probes for each analyte are Analyte Specific Reagents (ASRs) manufactured by [employer]. ASRs are used in many laboratory tests necessary for standard medical care and generally do not require U.S. Food and Drug Administration approval. The FDA has determined that such clearance or approval is not necessary. The test is used for clincal purposes. It should not be regarded as investigational or for research. This laboratory is certified under the Clinical Laboratory Improvement Amendments of 1988 (CLIA-88) as qualified to perform high complexity clinical laboratory testing. Bartolo Andujar MD LAB - BLOOD ORDMickey KAUR [facility] Inf. Diseases Diag. Lab [address] [facility] [place] [id number], [facility] [phone] * (ABNORMAL) Basic metabolic panel (09/04/2023 8:57 PM CDT) [facility] Sodium 139 135 - 145 mmol/L 09/04/2023 9:24 PM CDT [facility] Comment:Reference intervals for this test were updated on 08/03/2023 to more accurately reflect our healthy population. There may be differences in the flagging of prior results with similar values performed with this method. Interpretation of those prior results can be made in the context of the updated reference intervals. Potassium 3.3(L) 3.4 - 5.3 mmol/L 09/04/2023 9:24 PM CDT [facility] Chloride 104 98 - 107 mmol/L 09/04/2023 9:24 PM CDT [facility] Carbon Dioxide (CO2) 25 22 - 29 mmol/L 09/04/2023 9:24 PM CDT [facility] Anion Gap 10 7 - 15 mmol/L 09/04/2023 9:24 PM CDT [facility] Urea Nitrogen 7.2 6.0 - 20.0 mg/dL 09/04/2023 9:24 PM CDT [facility] Creatinine 0.68 0.51 - 0.95 mg/dL 09/04/2023 9:24 PM CDT [facility] GFR Estimate >90 >60 mL/min/1. 73m2 09/04/2023 9:24 PM CDT [facility] Calcium 8.5(L) 8.6 - 10.0 mg/dL 09/04/2023 9:24 PM CDT [facility] Glucose 131(H) 70 - 99 mg/dL 09/04/2023 9:24 PM CDT [facility] Blood VENOUS LINE / Unknown Venipuncture / Unknown 09/04/2023 8:57 PM CDT 09/04/2023 9:03 PM CDT Bartolo Andujar MD LAB - BLOOD TIFFANIE KAUR [facility] [address] Lab (1st floor, no room number) [place] [address], [facility] [phone] from Last 3 Months Advance Directives For more information, please contact: [phone] Latest Code Status on File Code Status Date Activated Date Inactivated Comments Full Code 09/04/2023 11:37 PM 09/07/2023 1:45 PM Al l basic and advanced life-sustaining interventions are performed as appropriate Question Answer Comments Code status determined by: Discussion with patient/ legal decision maker Care Teams Cable Driller Relationship Specialty Start Date End Date Clinic, [facility] [place] [address] [place] [address] PCP - General 09/04/23
--- OUTSIDE RECORDS SUMMARY | 2023-11-21 08:11 | XMS_ITS | Encounter Summary ---
Author Name Unknown Organization [place] Address [facility] [place] [address] Care Team Providers Care Administrative Analyst Name Role Phone [facility] [place] [address]ryn Primary Care Provider Reason for Visit * Reason Comments Orders DME ORDER Encounter Details Date Type Department Care Team (Late st Contact Info) Description 07/29/2023 Documentation Only [facility] Diego Becker MD [facility] [place] [address] Orders (DME ORDER) Social History Tobacco Use Types Packs/Day Years Used Date Smoking Tobacco: Never Assessed Adolescent Education Answer Date Record ed Getting School Help Needed Not on file 07/31 Sex and Gender Information Value Date Recorded Sex Assigned at Not on file Gender Identity Not on file Sexual Orientation Not on file COVID-19 Exposure Response Date Recorded In the last 10 days, have yo u been in contact with someone who was confirmed or suspected to have Coronavirus/COVID-19? No / Unsure 07/29/2023 5:59 PM CDT documented as of this encounter Plan of Treatment Not on file documented as of this encounter Visit Diagnoses Diagnosis Sprain of other specified parts of right knee, initial encounter- Primary documented in this encounter Care Teams Administrative Analyst Relationship Specialty Start Date End Date [facility] [place] [address] [place] [address] [address] [place] [address] PCP - General 06/25/23 09/03/23 documented as of this encounter
--- OUTSIDE RECORDS SUMMARY | 2023-11-21 08:11 | XMS_ITS | Clinical Summary ---
Author Name Unknown Organization [facility] Address [address] [place] [id number] Care Team Providers Care Contract Technician Name Role Phone [facility], [facility] Primary Care Provide r Allergies Active Allergy Reactions Criticality Noted Date [...] Cellulitis of neck 09/04/2023 Parotitis, acute 09/04/2023 Encounters Date Type Department Care Team Description 09/04/2023 8:33 PM CDT - 09/07/2023 11:44 AM CDT Hospital Encounter [facility] Observation Dept [address] [place] [phone] Bartolo Andujar MD Kriz, DO Sri Pickens, Bartolo Doss MD Parotitis, acute; Cellulitis of neck Discharge Disposition: Home or Self Care 09/04/2023 External Order Results [facility] [address] [place] [address] Outside, Provider 09/04/2023 Travel from Last 3 Months Social History Tobacco Use Types Packs/Day Years [...] 09/05/2023 4:00 AM CDT Plan of Treatment Health Maintenance Due Date Last Done Comments ADVANCE CARE PLANNING 1987 ANNUAL REVIEW OF HM ORDERS 1987 HEPATITIS B IMMUNIZATION (1 of 3 - 3-dose series) 1987 COVID-19 Vaccine (#1) 1987 HIV SCREENING 2002 HEPATITIS C SCREENING 2005 PAP 02/22/2008 HPV IMMUNIZATION (3 - 3-dose series) 09/04/2010 05/08/2010, 05/08/2010, 03/05/2010, Additional history exists INFLUENZA VACCINE (#1) 2023 PHQ-2 (once per calendar year) 2023 YEARLY PREVENTIVE VISIT 08/09/2024 08/09/20, 08/09/2023, 10/24/2021 DTAP/TDAP/TD IMMUNIZATION (3 - Td or Tdap) 07/27/2033 07/27/2023, 03/13/2010 IPV IMMUNIZATION Aged Out No longer e ligible based on patient's age to complete this topic MENINGITIS IMMUNIZATION Aged Out No l onger eligible based on patient's age to complete this topic Pneumococcal Vaccine: Pediatrics (0 to 5 Years) and At-Risk Patients (6 to 64 Years) Aged Out No longer eligible based on patient's age to complete this topic RSV MONOCLONAL ANTIBODY Aged Out No l onger eligible based on patient's age to complete this topic Procedures Procedure Name Priority Date/Time Associated Diagnosis [...] 6:08 AM CDT 09/07/2023 6:17 AM CDT Chelsea Layton APRN [facility] LAB - BLOOD ORDERABLES Performing Organization Address City/[facility]/ZIP Co de Phone Number [facility] [address] (1st floor, no room number) [place] [address], [facility] [phone] * (ABNORMAL) CRP inflammation (09/06/2023 5:08 AM CDT) Only the most recent of2 resultswithin the time period is included. CRP Inflammation 8.68(H) <5.00 mg/L 09/06/2023 6:19 AM CDT LABORATORY Blood STRUCTURE OF RIGHT UPPER LIMB / Unknown Venipuncture / Unknown 09/06/2023 5:08 AM CDT 09/06/2023 6:01 AM CDT Chelsea Layton APRN [facility] LAB - BLOOD ORDERABLES [facility] [address] Lab (1st floor, no room number) [place] [address], [facility] [phone] * (ABNORMAL) Comprehensive metabolic panel (09/06/2023 5:08 AM CDT) [facility] Sodium 138 135 - 145 mmol/L 09/06/2023 6:19 AM CDT [facility]AT[facility] Comment:Reference [...] - 5.3 mmol/L 09/06/2023 6:19 AM CDT [facility] Carbon Dioxide (CO2) 26 22 - 29 mmol/L 09/06/2023 6:19 AM CDT [facility] Anion Gap 8 7 - 15 mmol/L 09/06/2023 6:19 AM CDT [facility] Urea Nitrogen 8.4 6.0 - 20.0 mg/dL 09/06/2023 6:19 AM CDT [facility] Creatinine 0.66 0.51 - 0.95 mg/dL [...] CDT 09/06/2023 6:01 AM CDT Misbil Tamar Calin [employer] LAB - BLOOD ORDERABLES [facility] [address] [facility] Lab (1st floor, no room number) [place] [address] [phone] * (ABNORMAL) CBC with platelets (09/06/2023 5:08 [...] 09/06/2023 6:09 AM CDT Misbil Tamar Layton [employer] LAB - BLOOD ORDERABLES [facility] Lab [address] Lab (1st floor, no room number) [place] [address], [facility] [phone] * Urine Drug Screen Panel (09/05/2023 4:30 PM CDT) [facility] Amphetamines Urine Screen Negative Screen Negative [...] [facility] Comment:Cutoff for a negativ e PCP is less than 25 ng/mL. Urine MID-STREAM URINE SPECIMEN / Unknown Non-blood Collection / Unknown 09/05/2023 4:30 PM CDT 09/05/2023 4:44 PM CDT Chelsea Layton [facility] LAB - URINE ORDERABLES [facility] [address] Lab (1st floor, no room number) [place] [address], [facility] [phone] * Mumps Diagnostic, PCR (09/04/2023 10:21 PM CDT) Mumps Confirmation PCR Negative Negative 10/04/2023 3:16 PM [facility] See Scanned Result MUMPS DIAGNOSTIC PCR-Scanned 10/04/2023 3:16 PM SHRIMPER [facility] Swab ORAL CAVITY STRUCTURE / Unknown Non-blood Collection / Unknown 09/04/2023 10:21 PM CDT 09/04/2023 10:31 PM CDT Narrative [facility] - 10/04/2023 3:16 PM SHRIMPER Verified by Sandra Starks on 09/08/2023. Bartolo Andujar MD LAB - BODY FLUID S ORDERABLES Performing Organization Address City/[facility]/ZIP Co de Phone Number [facility] Lab Building [address] [place] [phone] * US Head Neck Soft Tissue (09/04/2023 [...] HEAD NECK SOFT TISSUE LOCATION: [facility] DATE: 09/04/2023 INDICATION: Right parotitis, worsening, eval signs of abscess COMPARISON: None. TECHNIQUE: Routine. Procedure Note Myke Clement MD - 09/04/2023 EXAM: US HEAD NECK SOFT TISSUE LOCATION: [facility] DATE: 09/04/2023 INDICATION: Right parotitis, worsening, eval [...] Andujar MD LAB - BLOOD TIFFANIE KAUR [facility] Organization Address City/State/ZIP Co de Phone Number [facility] [address] [facility] Lab (1st floor, no room number) [place] [address], [facility] [phone] * (ABNORMAL) EBV DNA PCR Quantitative Whole [...] by the Infectious Diseases Diagnostic Laboratory at [facility]. The primers and probes for each [...] by the Infectious Diseases Diagnostic Laboratory at [facility]. The primers and probes for each [...] testing. Bartolo Andujar MD LAB - BLOOD TIFFANIE KAUR [facility]AT[facility] Inf. Diseases Diag. Lab [address] [facility] [place] [address] [phone] * (ABNORMAL) Basic metabolic panel (09/04/2023 8:57 PM CDT) [facility] Sodium 139 135 - 145 mmol/L [...] - 5.3 mmol/L 09/04/2023 9:24 PM CDT LABORATORY Chloride 104 98 - 107 mmol/L 09/04/2023 9:24 PM CDT [facility] Carbon Dioxide (CO2) 25 22 - 29 mmol/L 09/04/2023 9:24 PM CDT LABORATORY Anion Gap 10 7 - 15 mmol/L 09/04/2023 9:24 PM CDT LABORATORY Urea Nitrogen 7.2 6.0 - 20.0 mg/dL 09/04/2023 9:24 PM CDT [facility] Creatinine 0.68 0.51 - 0.95 mg/dL 09/04/2023 9:24 PM CDT LABORATORY GFR Estimate >90 >60 mL/min/1. 73m2 09/04/2023 9:24 PM CDT LABORATORY Calcium 8.5(L) 8.6 - 10.0 mg/dL 09/04/2023 9:24 PM CDT LABORATORY Glucose 131(H) 70 - 99 mg/dL 09/04/2023 9:24 PM CDT LABORATORY Blood VENOUS LINE / Unknown Venipuncture / Unknown 09/04/2023 8:57 PM CDT 09/04/2023 9:03 PM CDT Bartolo Andujar MD LAB - BLOOD TIFFANIE KAUR [facility] Organization Address City/State/ZIP Co de Phone Number LABORATORY [facility] Lab [address] Lab (1st floor, no room number) [place] [address], [facility] [phone] from Last 3 Months Advance Directives For more information, please contact: [phone] Latest Code Status on File Code Status Date Activated Date Inactivated Comments Full Code 09/04/2023 11:37 PM 09/07/2023 1:45 PM Al l basic and advanced life-sustaining interventions are performed as appropriate Question Answer Comments Code status determined by: Discussion with patient/ legal decision maker Care Teams Contract Technician Relationship Specialty Start Date End Date [facility], [place] [address] [place] [address] PCP - General 09/04/23
--- OUTSIDE RECORDS SUMMARY | 2023-11-21 08:11 | XMS_ITS | Encounter Summary ---
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 Wright, RN)2012 (Stopped - Provider: Kamilla Rizo RN) CT scan flush (COMPLETED) Intravenous, 100 mL, ONCE, On Carissa 07/29/23 at 2009, For 1 dose, This entry is for use by Radiology to intermittently used as a flush in patients receiving a CT scan. 2012 ($Given - Provi rosemary: Angelina Chávez) iopamidol (ISOVUE-370) solution 500 mL (COMPLETED) 500 mL, Intravenous, ONCE, On Carissa 07/29/23 at 2009, For 1 dose 2012 ($Given - Provi rosemary: Angelina Chávez) documented in this encounter Care Teams Blue Print Control Clerk Relationship Specialty Start Date End Date [facility] [place] [address] [facility] [address] [place] [id number] PCP - General 06/25/23 09/03/23 documented as of this encounter
--- OUTSIDE RECORDS SUMMARY | 2023-11-21 08:11 | XMS_ITS | Encounter Summary ---
Author Name Unknown Organization [place] Address [facility] [place] [address] Care Team Providers Care Aircraft Shipping Checker Name Role Phone [facility] Primary Care Provide r Encounter Details Date Type Department Care Team (Late st Contact Info) Description 09/04/2023 External Order Results [facility] [address] [place] [address] Outside, Provider Social History Tobacco Use Types Packs/Day Years [...] documented as of this encounter Care Teams Aircraft Shipping Checker Relationship Specialty Start Date End Date [facility], [facility] [address] [place] [address] PCP - General 09/04/23 documented as of this encounter
--- OUTSIDE RECORDS SUMMARY | 2023-11-21 08:11 | XMS_ITS | Encounter Summary ---
Author Name Unknown Organization [place] Address [address] [place] [id number] Care Team Providers Care Room Service Waiter/Waitress Name Role Phone [facility] [place] 65 Primary Care Provider Encounter Details Date Type Department Care Team (Latest Contact Info) Description 07/29/2023 Travel Social History Tobacco Use Types Packs/Day [...] Diagnoses Not on filedocumented in this encounter Care Teams Room Service Waiter/Waitress Relationship Specialty Start Date End Date [facility] [place] [address] [facility] [address] [place] [address] PCP - General 06/25/23 09/03/23 documented as of this encounter
--- OUTSIDE RECORDS SUMMARY | 2023-11-21 08:11 | XMS_ITS | Encounter Summary ---
Author Name Unknown Organization [facility] Address [address] [place] [id number] Care Team Providers Care Travel Insurance Agent Name Role Phone [facility], [facility] Primary Care Provide r Reason for Visit * Reason Comments Facial Swelling * Auth/Cert (Routine) Specialty Diagnoses / Procedures Referred By Julianne t Referred To Contact Med Surg Diagnoses Cellulitis of neck Parotitis, acute Parotitis, acute Cellulitis of neck [facility] Observation Dept [address] [place] [address] Referral ID Status Reason Start Date Expiration Date Visits Re quested Visits Authorized [id number] 1 1 Encounter Details Date Type Department Care Team (Late st Contact Info) Description 09/04/2023 8:33 PM CDT - 09/07/2023 11:44 AM CDT Hospital Encounter [facility] Observation Dept [address] [place] [address] Bartolo Andujar MD [facility] [address] [place], [place] [id number] Margarito Gresham, [address] [place] [address] Bartolo Fierro MD [facility] [address] [place], [place] [id number] Parotitis, acute; Cellulitis of neck Discharge Disposition: Home or Self Care Social History Tobacco Use Types Packs/Day Years Used Date Smoking Tobacco: Never Assessed Adolescent Education Answer Date Record ed Getting School Help Needed Not on file 07/31 Sex and Gender Information Value Date Recorded Sex Assigned at Not on file Gender Identity Not on file Sexual Orientation Not on file documented as of this encounter Last Filed [...] Mass Index 28.51 09/05/2023 4:00 AM CDT documented in this encounter Discharge Summaries * Hansel William DO - 09/07/2023 11:44 AM CDT [facility] Hospitalist Discharge Summary Date of Admission: 09/04/2023 Date of Discharge: 09/07/2023 Discharging Provider: Hansel William DO Discharge Service: Hospitalist Service Discharge Diagnoses Right parotitis. Tobacco use disorder. ADHD. PTSD. Hypokalemia. Clinically Significant Risk Factors # Overweight: Estimated body mass index is 28.51 kg/m?? as calculated from the following: Height as of this encounter: 1.702 m (5' 7). Weight as of this encounter: 82.6 kg (182 lb). Follow-ups Needed After Discharge Follow-up Appointments Follow-up and recommended labs and tests Follow-up with ear, nose, and throat specialist within 10 days. Discharge Disposition Discharged to home Condition at discharge: Stable Hospital Course Taylor Solis is a 38 year old female with a history of ADHD and PTSD who presents with right neck and mandibular swelling consistent with parotitis. Imaging initially was concerning for possible associated abscess. She was seen in consultation by nuclear equipment research engineer. She was started on IV Unasyn. It is felt that imaging abnormality is more likely a lymph node that was swollen because of infection. However, ENT does want her to follow-up within 10 days after antibiotic course. She has improved markedly with the IV Unasyn during hospital stay. She is now transitioned to oral Augmentin 875/125 mg twice a day to complete previously ordered course. She does have 12 days left of herprevious Augmentin prescription. Consultations This Hospital Stay ENT IP CONSULT Code Status Full Code Time Spent on this Encounter I spent 35 minutes with Ms. Solis and working on discharge on 09/07/2023. [facility] [address] [facility] [id number] Physical Exam Vital Signs: Temp: 98.2 ??F (36.8 ??C) Temp src: Oral BP: 122/80 Pulse: 80 Resp: 16 SpO2: 100 % O2 Device: None (Room air) Weight: 182 lbs 0 oz Gen: NAD, A&Ox3. Eyes: PERRL, sclera anicteric. OP: MMM, no lesions. Neck: Supple. CV: Regular, no murmurs. Lung: CTA b/l, normal effort. Ab: +BS, soft. Skin: Warm, dry to touch. No rash. Ext: No pitting edema LE b/l. Primary Care Physician [facility] Discharge Orders Reason for your hospital stay Right parotitis Follow-up and recommended labs and tests Follow-up with ear, nose, and throat specialist within 10 days. Activity Your activity upon discharge: activity as tolerated Diet Follow this diet upon discharge: Regular Discharge Medications Discharge Medication List as of 09/07/2023 11:02 AM START taking these medications Details acetaminophen (TYLENOL) 325 MG tablet Take 2 tablets (650 mg) by mouth every 6 hours as needed for mild pain or other (and adjunct with moderate or severe pain or per patient request), OTC ibuprofen (ADVIL/MOTRIN) 200 MG tablet Take 2 tablets (400 mg) by mouth every 6 hours as needed forinflammatory pain, OTC CONTINUE these medications which have NOT CHANGED Details amoxicillin-clavulanate (AUGMENTIN) 875-125 MG tablet Take 1 tablet by mouth 2 times daily Lot: 14 days, Historical lisdexamfetamine (VYVANSE) 60 MG capsule Take 60 mg by mouth See Admin Instructions Pt take daily on Wednesday through Wednesday, Historical azithromycin (ZITHROMAX) 250 MG tablet Take 250 mg by mouth daily Written on 09/03, pt has not started Day 1 500mg, then 250mg daily x 4 days, Historical doxycycline monohydrate (ADOXA) 100 MG tablet Take 100 mg by mouth daily Pt did not start yet, Historical Allergies Allergies Allergen Reactions Morphine Angioedema Vyvanse [Lisdexamfetamine] documented in this encounter Medications at Time of Discharge Medication Sig Dispensed Refills Start Date End Date acetaminophen (TYLENOL) 325 MG tabletIndications:Parot itis, acute Take 2 tablets (650 mg) by mouth every 6 hours as needed for mild pain or other (and adjunct with moderate or severe pain or per patient request) 0 09/07/2023 amoxicillin-clavulanate (AUGMENTIN) 875-125 MG tablet Take 1 tablet by mouth 2 times daily Lot: 14 days 0 09/03/2023 azithromycin (ZITHROMAX) 250 MG tablet Take 250 mg by mouth daily Written on 09/03, pt has not started Day 1 500mg, then 250mg daily x 4 days 0 doxycycline monohydrate (ADOXA) 100 MG tablet Take 100 mg by mouth daily Pt did not start yet 0 ibuprofen (ADVIL/MOTRIN) 200 MG tabletIndications:Parot itis, acute Take 2 tablets (400 mg) by mouth every 6 hours as needed for inflammatory pain 0 09/07/2023 lisdexamfetamine (VYVANSE) 60 MG capsule Take 60 mg by mouth See Admin Instructions Pt take daily on Wednesday through Wednesday 0 documented as of this encounter Progress Notes * Chelsea Layton, CHANNEL EXECUTIVE INSIDE ACCOUNT EXECUTIVE - 09/06/2023 4:43 PM CDT [facility] Medicine Progress Note - Hospitalist Service Date of Admission: 09/04/2023 Assessment & Plan Taylor Solis is a 38 year old female with a history of ADHD and PTSD who presents with right neck and mandibular swelling consistent with parotitis. Right parotitis Leukocytosis Failed outpatient management with Augmentin. She is afebrile but does have a mild leukocytosis (WBC12.9). Soft tissue CT showed right parotitis. Head/neck US showed R parotid gland cystic lesion measuring 1.3x1.2x0.7cm concerning for abscess vs hematoma vs tumor. Urine toxicology is negative.IV Unasyn and LR at 150ml/hr has been started in the emergency department. IV fluid discontinued on 09/06/23. The patient admitted to observation unit for IV antibiotics and airway monitoring. ENT consulted and they recommended continuing with IV Unasyn through 09/07/23, and then discharging the patient with 10-day course of oral Augmentin. -Continue with IV Unasyn through 09/07/23 -Discharge patient with 10-course of oral Augmentin -Follow-up with outpatient ENT in 1 to 2 weeks -Mumps/EBV pending -Ibuprofen and Tylenol for pain control -20 mg of PPI nightly while on Ibuprofen -Continue with sialogogues, facial massage and heat compression -Regular diet Hypokalemia, resolved Potassium is at 4.7 this morning. Tobacco use disorder Despite extended discussion about healing promotion with tobacco cessation, patient continues to smoke. -Continue with Nicotine patch ADHD and PTSD: -Continue with home Lisdexamfetamine 60 mg daily Observation Goals: -diagnostic tests and consults completed and resulted, -vital signs normal or atpatient baseline, -tolerating oral intake to maintain hydration, -adequate pain control on oral analgesics, -tolerating oral antibiotics or has plans for home infusion setup, -infection is improving,- dyspnea improved and O2 sats greater than 88% on room air or prior home oxygen levels, -returns tobaseline functional status, -safe disposition plan has been identified, Nurse to notify provider when observation goals have been met and patient is ready for discharge. Diet: Regular Diet Adult DVT Prophylaxis: Low Risk/Ambulatory with no VTE prophylaxis indicated Parker Catheter: Not present Lines: None Cardiac Monitoring: None Code Status: Full Code Clinically Significant Risk Factors Present on Admission # Hypokalemia: Lowest K = 3.3 mmol/L in last 2 days, will replace as needed # Overweight: Estimated body mass index is 28.51 kg/m?? as calculated from the following: Height as of this encounter: 1.702 m (5' 7). Weight as of this encounter: 82.6 kg (182 lb). Disposition Plan Expected Discharge Date: 09/06/2023, 6:00 PM The patient's care was discussed with the Attending Physician, Dr. Scherer . Chelsea Layton APRN [facility] Hospitalist Service [facility] Securely message with [employer] (more info) Text page via [employer] Paging/Directory Interval History The patient reports feeling much better and Toradol is helping with her pain Physical Exam Vital Signs: Temp: 99.1 ??F (37.3 ??C) Temp src: Oral BP: (!) 151/100 Pulse: 102 Resp: 16 SpO2: 100% O2 Device: None (Room air) Weight: 182 lbs 0 oz GENERAL: No apparent distress. Awake, alert, and fully oriented. HEENT: Normocephalic, atraumatic. Extraocular movements intact. CARDIOVASCULAR: Regular rate and rhythm without murmurs or rubs. No S3. PULMONARY: Clear to auscultation bilaterally. ABDOMINAL: Soft, non-tender, non-distended. Bowel sounds normoactive. EXTREMITIES: No cyanosis or clubbing. No appreciable edema. NEUROLOGICAL: CN 2-12 grossly intact, no focal neurological deficits. DERMATOLOGICAL: No rash, ulcer, bruising, nor jaundice. Medical Decision Making 30 MINUTES SPENT BY ME on the date of service doing chart review, history, exam, documentation & further activities per the note. Data PAST 24 HR DATA REVIEWED I have personally reviewed the following data over the past 24 hrs: 12.2 (H) \ 13.9 / 245 138 104 8.4 / 182 (H) 4.7 26 0.66 \ ALT: 74 (H) AST: 46 (H) AP: 80 TBILI: 0.2 ALB: 3.6 TOT PROTEIN: 6.5 LIPASE: N/A Procal: N/A CRP: 8.68 (H) Lactic Acid: N/A Associated attestation - Jean Marie Scherer MD - 09/10/2023 8:56 AM CDT Physician Attestation I have reviewed and discussed with the advanced practice provider their history, physical and plan for Taylor Solis. I did not participate in a shared visit by interviewing or examining the patient and this should be billed as an advanced practice provider only visit. Jean Marie Scherer MD Date of Service (when I saw the patient): I did not personally see this patient today. * Vazquez Rasheed MD - 09/06/2023 1:55 PM CDT Afebrile. Notes significantly less discomfort. Exam: There is still firm swelling in the region of the tail of the parotid. There is no fluctuancenoted there is no significant erythema. Impression: Parotitis Plan at this point would continue with a sialogogue and IV antibiotics. If she remains afebrile andis eating more most likely could be discharged home on a 10 day course of Augmentin sialogogues andheat and massage. * Chelsea Layton APRN CNP - 09/05/2023 10:37 AM CDT [facility] Medicine Progress Note - Hospitalist Service Date of Admission: 09/04/2023 Assessment & Plan Taylor Solis is a 38 year old female with a history of ADHD and PTSD who presents with right neck and mandibular swelling consistent with parotitis. Right parotitis Failed outpatient management with Augmentin. She is afebrile but does have a mild leukocytosis (WBC12.9). Soft tissue CT showed right parotitis. Head/neck US showed R parotid gland cystic lesion measuring 1.3x1.2x0.7cm concerning for abscess vs hematoma vs tumor. IV Unasyn and LR at 150ml/hr has been started in the emergency department. The patient admitted to observation unit for IV antibioticsand monitoring. -Continue with IV Unasyn -Reduce LR to 100ml/hr -Mumps/EBV pending -Regular diet -ENT consult Hypokalemia: -Continue with potassium replacement protocol. ADHD and PTSD: -Continue with home Lisdexamfetamine 60 mg daily Observation Goals: -diagnostic tests and consults completed and resulted, -vital signs normal or atpatient baseline, -tolerating oral intake to maintain hydration, -adequate pain control on oral analgesics, -tolerating oral antibiotics or has plans for home infusion setup, -infection is improving,- dyspnea improved and O2 sats greater than 88% on room air or prior home oxygen levels, -returns tobaseline functional status, -safe disposition plan has been identified, Nurse to notify provider when observation goals have been met and patient is ready for discharge. Diet: Regular Diet Adult DVT Prophylaxis: Low Risk/Ambulatory with no VTE prophylaxis indicated Parker Catheter: Not present Lines: None Cardiac Monitoring: None Code Status: Full Code Clinically Significant Risk Factors Present on Admission # Hypokalemia: Lowest K = 3.3 mmol/L in last 2 days, will replace as needed # Overweight: Estimated body mass index is 28.21 kg/m?? as calculated from the following: Height as of this encounter: 1.702 m (5' 7). Weight as of this encounter: 81.7 kg (180 lb 1.6 oz). Disposition Plan Expected Discharge Date: 09/07/2023 The patient's care was discussed with the Attending Physician, Dr. Thornton . Chelsea Layton APRN CNP Hospitalist Service [facility] Securely message with [employer]oc[employer] (more info) Text page via [facility] Paging/Directory Interval History The patient is upset because the swelling is getting worse and pain is notimproving. Physical Exam Vital Signs: Temp: 98.3 ??F (36.8 ??C) Temp src: Oral BP: (!) 142/106 Pulse: 64 Resp: 20 SpO2: 99 %O2 Device: None (Room air) Weight: 180 lbs 1.6 oz GENERAL: No apparent distress. Awake, alert, and fully oriented. HEENT: Normocephalic, atraumatic. Extraocular movements intact. CARDIOVASCULAR: Regular rate and rhythm without murmurs or rubs. No S3. PULMONARY: Clear to auscultation bilaterally. ABDOMINAL: Soft, non-tender, non-distended. Bowel sounds normoactive. EXTREMITIES: No cyanosis or clubbing. No appreciable edema. NEUROLOGICAL: CN 2-12 grossly intact, no focal neurological deficits. DERMATOLOGICAL: No rash, ulcer, bruising, nor jaundice. Medical Decision Making 30 MINUTES SPENT BY ME on the date of service doing chart review, history, exam, documentation & further activities per the note. Data PAST 24 HR DATA REVIEWED I have personally reviewed the following data over the past 24 hrs: 12.9 (H) \ 12.3 / 209 139 104 7.2 / 131 (H) 4.3 25 0.68 \ Procal: N/A CRP: <3.00 Lactic Acid: N/A Imaging results reviewed over the past 24 hrs: Recent Results (from the past 24 hour(s)) US Head Neck Soft Tissue Narrative EXAM: US HEAD NECK SOFT TISSUE LOCATION: [facility] DATE: 09/04/2023 INDICATION: Right parotitis, worsening, eval signs of abscess COMPARISON: None. TECHNIQUE: Routine. Impression IMPRESSION: Targeted ultrasound over the right parotid gland. Right parotid gland demonstrates a cystic lesion measuring 1.3 x 1.2 x 0.7 cm. There is no internalDoppler signal. There is isoechoic mural nodule. Findings may reflect abscess, hematoma, nonspecific cystic lesion. A cystic parotid gland tumor is possible. Associated attestation - Benedict Thornton MD - 09/08/2023 1:02 AM CDT Physician Attestation I have reviewed and discussed with the advanced practice provider their history, physical and plan for Taylor Solis. I did not participate in a shared visit by interviewing or examining the patient and this should be billed as an advanced practice provider only visit. Benedict Thornton MD Date of Service (when I saw the patient): I did not personally see this patient today. documented in this encounter H&P Notes * Margarito Gresham DO - 09/04/2023 11:37 PM CDT [facility] Hospitalist H&P Name: Taylor Solis Date of : 1985 Age: [age] year old Date of admission: 09/04/2023 Primary care provider: [facility], [facility] Assessment and Plan: Taylor Solis is a 38 year old female with a history of ADHD and PTSD who presents with right neck and mandibular swelling consistent with parotitis. Right parotitis: Failed outpatient management with Augmentin. She is afebrile but does have a mild leukocytosis. We will continue Unasyn for now and aggressive fluids with LR at 150 cc/h. Regular diet will be ordered. Analgesics are available. If she fails to improve could consider consultation with ENT and/or reimaging with CT. Hypokalemia: Start the potassium replacement protocol. ADHD and PTSD: Resume home medications after reconciliation. Code status: Full. Admit to observation status. Prophylaxis: PCD's. Disposition: Home in 1 to 2 days. 60 MINUTES SPENT BY ME on the date of service doing chart review, history, exam, documentation & further activities per the note. Chief Complaint: Right facial swelling and pain. History of Present Illness: Taylor Solis is a 38 year old female who presents with right facial swelling and pain. History was obtained from my discussion with the patient at the bedside. I also discussed the case with the ED provider. The electronic medical record was also reviewed. The patient has had about a week of the symptoms. She was initially seen on 09/[address] scanperformed at that time showing right-sided parotitis. She was started on Augmentin but is only taken about 3 doses. Her swelling and pain has worsened. She denies any fevers. She has been attempting to medicate with acetaminophen and ibuprofen with only mild improvement. Ultimately she comes to thehospital for evaluation. Here she has a temperature of 98.2, heart rate 64, blood pressure 120/70, respirate 16 and oxygen saturation 100% on room air. Labs show normal basic metabolic panel except for a potassium of 3.3 gui calcium of 8.5. CBC notable for white blood cells 12.9. Ultrasound shows right parotid gland demonstrating a cystic lesion measuring 1.3 x 1.2 x 0.7 cm. Past Medical History: ADHD PTSD Past Surgical History: No past surgical history on file. Social History: Social History Tobacco Use Smoking status: Not on file Smokeless tobacco: Not on file Substance Use Topics Alcohol use: Not on file Family History: The family history was fully reviewed and non-contributory in this case. Allergies: Allergies Allergen Reactions Morphine Angioedema Medications: Prior to Admission medications Not on File Review of Systems: A Comprehensive greater than 10 system review of systems was carried out. Pertinent positives and negatives are noted above. Otherwise negative for contributory information. Physical Exam: Blood pressure 129/89, pulse 72, temperature 98.2 ??F (36.8 ??C), temperature source Oral, resp. rate 16, last menstrual period 06/23/2023, SpO2 96%. Wt Readings from Last 1 Encounters: 06/25/23 79.4 kg (175 lb) Exam: GENERAL: No apparent distress. Awake, alert, and fully oriented. HEENT: Normocephalic, atraumatic. Extraocular movements intact. CARDIOVASCULAR: Regular rate and rhythm without murmurs or rubs. No S3. PULMONARY: Clear to auscultation bilaterally. ABDOMINAL: Soft, non-tender, non-distended. Bowel sounds normoactive. EXTREMITIES: No cyanosis or clubbing. No appreciable edema. NEUROLOGICAL: CN 2-12 grossly intact, no focal neurological deficits. DERMATOLOGICAL: No rash, ulcer, bruising, nor jaundice. Data: Laboratory: Recent Labs Lab 09/04/232056 WBC 12.9* HGB 12.3 HCT 37.8 MCV 92 PLT 209 Recent Labs Lab 09/04/232056 NA 139 POTASSIUM 3.3* CHLORIDE 104 CO2 25 ANIONGAP 10 GLC 131* BUN 7.2 CR 0.68 GFRESTIMATED >90 CHARISSA 8.5* No results for input(s): CULT in the last 168 hours. Imaging: Recent Results (from the past 24 hour(s)) US Head Neck Soft Tissue Narrative EXAM: US HEAD NECK SOFT TISSUE LOCATION: [facility] DATE: 09/04/2023 INDICATION: Right parotitis, worsening, eval signs of abscess COMPARISON: None. TECHNIQUE: Routine. Impression IMPRESSION: Targeted ultrasound over the right parotid gland. Right parotid gland demonstrates a cystic lesion measuring 1.3 x 1.2 x 0.7 cm. There is no internalDoppler signal. There is isoechoic mural nodule. Findings may reflect abscess, hematoma, nonspecific cystic lesion. A cystic parotid gland tumor is possible. Margarito Gresham DO [facility] Hospitalist [facility] [address] 09/04/2023 documented in this encounter Consult Notes * Daron Christiansen MD - 09/05/2023 5:46 PM CDT REASON FOR CONSULT: right acute parotitis HISTORY OF PRESENT ILLNESS: Asked by Chelsea Layton APRN CNP to evaluate this 38 year old female patient who was admitted yesterday for further management of right acute infectious parotitis. In her usual state of good health when she noted a tender lump at the angle of the mandible on the right about a week ago and since there has been back and forth to various clinics/EDs for a diagnosis of acute parotitis. 09/02/[address] elsewhere (no images available unfortunately) showed 1. Right parotid gland enhancement with overlying subcutaneous fat stranding and mild thickening of the right platysma muscle. Findings are compatible with sequela of acute right parotitis.2. Evidence of a 1.4 cm hypoenhancing lesion within the right parotid gland, likely an enlarged intraparotid lymph node. 3. A couple enlarged bilateral level 2A cervical lymph nodes, likely reactive. 09/04/32 U/S showed right parotid gland demonstrates a cystic lesion measuring 1.3 x 1.2 x 0.7 cm. There is no internal Doppler signal. There is isoechoic mural nodule. Findings may reflect abscess, hematoma, nonspecific cystic lesion. A cystic parotid gland tumor is possible. No improvement on Augmentin after 3 doses at home so she presented here again with worsening swelling, burning pain, and tenderness at which point she was admitted to the hospital and since yesterday has been on IV Unasyn with little improvement. WBC mildly elevated at 12.9; other work up pendingTaking sialogogues but not doing massage or warm compresses. Smokes but no underlying immunodeficiency factors such as diabetes. No history of pre-existing masses or FH of parotid tumors. No additional complaints including fevers or chills, oral purulence, or additional neck lumps/bumps. Past Medical History: ADHD PTSD Smoker Past Surgical History: Past Surgical History[]Expand by Default No past surgical history on file. Social History: Social History Tobacco Use Smoking status: Active smoker Smokeless tobacco: Not on file Substance Use Topics Alcohol use: Not on file Family History: The family history was fully reviewed and non-contributory in this case. Allergies: Allergies Allergen Reactions Morphine Angioedema Medications: Prior to Admission medications Not on File Review of Systems: A Comprehensive greater than 10 system review of systems was carried out. Pertinent positives and negatives are noted above. Otherwise negative for contributory information. Physical Exam: GEN: Semi-recumbent, nontoxic appearing, NAD. Communicates appropriately Vitals: BP (!) 139/91 (BP Location: Right arm) Pulse 70 Temp 98.4 ??F (36.9 ??C) (Oral) Resp 18 Ht 1.702 m (5' 7) Wt 81.7 kg (180 lb 1.6 oz) LMP 06/23/2023 (Approximate) SpO2 98% BMI28.21 kg/m?? HEAD: normocephalic/atraumatic Eyes: Vision grossly intact, EOMI Ears: Auricles normal. No otoscope available. Nose: Clear nares OC/OP: Normal dentitions. No trismus. No swelling, lesions or purulence expressed from Jeff's duct. Neck: Right parotid/upper neck with diffuse swelling, edema, tenderness, calor c/w parotitis. No focal mass and minimally reactive LAD. Remaining salivary glands normal. No thryomegaly. Neuro: gun striper II-XII grossly intact SKIN: As above, no additional lesions/rashes ASSESSMENT/PLAN: Right acute infectious parotitis, likely bacterial Smoker Agree with continuing IV Unasyn. Discussed smoking cessation with patient and considering nicotine patch while here. Instructed patient and covering PA on importance of frequent, at least hourly warmcompresses/massage while awake along with continuing sialogogues, IVFs and hydration. Discussed also considering 10 mg IV Decadron Q8 hours x 3 doses only. Anticipate clinical response in 48-72 hoursif these measures are followed and hopefully patient can be then be discharged on home going regimen of broad spectrum antibiotics with follow-up in ENT clinic in 1-2 weeks with possible follow up imaging then. Conversely, if not improved/worsening in 48-[address] and/or pursuing U/S guided needle aspiration of apparent fluid collection (which can be sent for c/s and cytology, although tumor unlikely in this scenario). Will have ENT partner see tomorrow. Thanks for the consult and please call for questions/concerns. Daron Christiansen MD [facility] [phone] documented in this encounter ED Notes * Carol Jack RN - 09/05/2023 3:26 AM CDT [facility] ED Nurse Handoff Report ED Chief complaint: Facial Swelling . ED Diagnosis: Final diagnoses: Parotitis, acute Allergies: Allergies Allergen Reactions Morphine Angioedema Code Status: Full Code Activity level - Baseline/Home: independent. Activity Level - Current: independent. Lift room needed: No. Bariatric: No Auto Clutch Rebuilder Needed: No Isolation: Yes. Infection: Not Applicable Other droplet for mumps r/o. Respiratory status: Room air Vital Signs (within 30 minutes): Vitals: 09/04/23 2130 09/04/23 2223 09/04/234 09/04/23 2311 BP: 129/89 Pulse: 72 Resp: Temp: TempSrc: SpO2: 97% 99% 96% Cardiac Rhythm: , Pain level: Patient confused: No. Patient Falls Risk: assistive device/personal items within reach. Elimination Status: Unable to void yet Patient Report - Initial Complaint: Facial Swelling. Focused Assessment: Per MD note: Taylor Solis is a 38 year old female with a past medical history significant for ADHD, PTSD who presents to the ED via/accompanied by self with a chief complaint of right neck swelling recent diagnosis of right parotitis. The patient reports that she had right neck swelling that started approximate 1 week ago and has gradually worsened. She was seen initially 5 days ago and subsequently again on 09/02/[address] that showed right parotitis. Patient reports she followed up again and was started on Augmentin yesterday which she has taken 3 doses of. She reports the swelling is increased, pain feels burning, comes intermittently and is severe. She reports that she took Tylenol and ibuprofen shortly prior to arrival in the emergency department which improved her pain significantly. She denies chills, fevers, difficulty breathing, difficulty swallowing, nausea, vomiting, similar symptoms previously. Patient is alert and oriented, able to make needs known. Pain control with torodol. No current airway involvement. Abnormal Results: Labs Ordered and Resulted from Time of ED Arrival to Time of ED Departure BASIC METABOLIC PANEL - Abnormal Result Value Sodium 139 Potassium 3.3 (*) Chloride 104 Carbon Dioxide (CO2) 25 Anion Gap 10 Urea Nitrogen 7.2 Creatinine 0.68 GFR Estimate >90 Calcium 8.5 (*) Glucose 131 (*) CBC WITH PLATELETS AND DIFFERENTIAL - Abnormal WBC Count 12.9 (*) RBC Count 4.12 Hemoglobin 12.3 Hematocrit 37.8 MCV 92 MCH 29.9 MCHC 32.5 RDW 13.9 Platelet Count 209 % Neutrophils 68 % Lymphocytes 25 % Monocytes 5 % Eosinophils 2 % Basophils 0 % Immature Granulocytes 0 NRBCs per 100 WBC 0 Absolute Neutrophils 8.7 (*) Absolute Lymphocytes 3.2 Absolute Monocytes 0.7 Absolute Eosinophils 0.2 Absolute Basophils 0.0 Absolute Immature Granulocytes 0.0 Absolute NRBCs 0.0 CRP INFLAMMATION - Normal CRP Inflammation <3.00 MUMPS DIAGNOSTIC PCR EBV DNA PCR QUANTITATIVE WHOLE BLOOD US Head Neck Soft Tissue Final Result IMPRESSION: Targeted ultrasound over the right parotid gland. Right parotid gland demonstrates a cystic lesion measuring 1.3 x 1.2 x 0.7 cm. There is no internalDoppler signal. There is isoechoic mural nodule. Findings may reflect abscess, hematoma, nonspecific cystic lesion. A cystic parotid gland tumor is possible. Treatments provided: See MAR Family Comments: at bedside OBS brochure/video discussed/provided to patient: Yes ED Medications: Medications ampicillin-sulbactam (UNASYN) 3 g vial to attach to NS 100 mL bag (0 g Intravenous Stopped ) potassium chloride (KLOR-CON) Packet 40 mEq (40 mEq Oral $Given 09/04/232217) ketorolac (TORADOL) injection 15 mg (15 mg Intravenous $Given 09/04/232313) Drips infusing: No For the majority of the shift this patient was Green. Interventions performed were NA. Sepsis treatment initiated: No Cares/treatment/interventions/medications to be completed following ED care: NA ED Nurse Name: Elda Sanchez RN 11:17 PM RECEIVING UNIT ED HANDOFF REVIEW Above ED Nurse Handoff Report was reviewed: Yes Reviewed by: Carol Jack RN on September 05, 2023 at 3:26 AM * Dagmar Barnes RN - 09/05/2023 2:17 AM CDT Bed: ED08 Expected date: Expected time: Means of arrival: Comments: 37 * Maci Wright RN - 09/04/2023 8:29 PM CDT I got this little ball on this side of my neck. Nazia been to 3 different hospitals and they think its a swollen salivary gland. Now its swelling even more and theres a hard spot in the middle. Abx since yesterday. Pt able to swallow, denies airway involvement. Scheduled to see ENT on Wednesday but swelling progressively worsened. Oxy last at 3. Tylenol and ibuprofen 1hr GENERAL INSPECTOR. Pt states now the burning is super bad down into my neck and my jaw. Large spot of swelling, redness and warmth around right neck/ear/jaw. * Bartolo Andujar MD - 09/04/2023 8:17 PM CDT History Chief Complaint: Facial Swelling HPI Taylor Solis is a 38 year old female with a past medical history significant for ADHD, PTSD who presents to the ED via/accompanied by self with a chief complaint of right neck swelling recent diagnosis of right parotitis. The patient reports that she had right neck swelling that started approximate 1 week ago and has gradually worsened. She was seen initially 5 days ago and subsequently again on 09/02/[address] that showed right parotitis. Patient reports she followed up again and was started on Augmentin yesterday which she has taken 3 doses of. She reports the swelling is increased,pain feels burning, comes intermittently and is severe. She reports that she took Tylenol and ibupro fen shortly prior to arrival in the emergency department which improved her pain significantly. Shedenies chills, fevers, difficulty breathing, difficulty swallowing, nausea, vomiting, similar symptoms previously. Independent Historian: history provided by the patient Review of External Notes: See MDM ROS: Review of Systems Full ROS completed and negative other than pertinent positives and negatives noted in HPI Allergies: Morphine Medications: No current outpatient medications on file. Past Medical History: No past medical history on file. Past Surgical History: No past surgical history on file. Family History: family history is not on file. Social History: PCP: [facility], [facility] 637 Physical Exam Patient Vitals for the past 24 hrs: BP Temp Temp src Pulse Resp SpO2 09/04/23 2311 -- -- -- -- -- 96 % 09/04/232223 -- -- -- -- -- 99 % 09/04/232222 129/89 -- -- 72 -- -- 09/04/23 2130 -- -- -- -- -- 97 % 09/04/232058 128/70 98.2 ??F (36.8 ??C) Oral 64 16 100 % 09/04/232037 128/70 -- -- 65 -- 98 % 09/04/232029 (!) 141/102 98.4 ??F (36.9 ??C) Temporal 71 16 100 % Physical Exam Constitutional: Well developed, nontox appearance Head: Atraumatic. Mouth/Throat: Oropharynx is clear and moist. Neck: no stridor, erythema, swelling and tenderness overlying the right parotid gland, no meningismus Eyes: no scleral icterus, EOMI Cardiovascular: RRR, 2+ bilat radial pulses Pulmonary/Chest: nml resp effort Ext: Warm, well perfused Neurological: A&O, symmetric facies, moves ext x4 Skin: Skin is warm and dry. Psychiatric: Behavior is normal. Thought content normal. Nursing note and vitals reviewed. Emergency Department Course ECG: No results found for this or any previous visit. Imaging: US Head Neck Soft Tissue Final Result IMPRESSION: Targeted ultrasound over the right parotid gland. Right parotid gland demonstrates a cystic lesion measuring 1.3 x 1.2 x 0.7 cm. There is no internalDoppler signal. There is isoechoic mural nodule. Findings may reflect abscess, hematoma, nonspecific cystic lesion. A cystic parotid gland tumor is possible. Report per radiology unless otherwise specified in report or noted in MDM Laboratory: Labs Ordered and Resulted from Time of ED Arrival to Time of ED Departure BASIC METABOLIC PANEL - Abnormal Result Value Sodium 139 Potassium 3.3 (*) Chloride 104 Carbon Dioxide (CO2) 25 Anion Gap 10 Urea Nitrogen 7.2 Creatinine 0.68 GFR Estimate >90 Calcium 8.5 (*) Glucose 131 (*) CBC WITH PLATELETS AND DIFFERENTIAL - Abnormal WBC Count 12.9 (*) RBC Count 4.12 Hemoglobin 12.3 Hematocrit 37.8 MCV 92 MCH 29.9 MCHC 32.5 RDW 13.9 Platelet Count 209 % Neutrophils 68 % Lymphocytes 25 % Monocytes 5 % Eosinophils 2 % Basophils 0 % Immature Granulocytes 0 NRBCs per 100 WBC 0 Absolute Neutrophils 8.7 (*) Absolute Lymphocytes 3.2 Absolute Monocytes 0.7 Absolute Eosinophils 0.2 Absolute Basophils 0.0 Absolute Immature Granulocytes 0.0 Absolute NRBCs 0.0 CRP INFLAMMATION - Normal CRP Inflammation <3.00 MUMPS DIAGNOSTIC PCR EBV DNA PCR QUANTITATIVE WHOLE BLOOD Procedures Emergency Department Course & Assessments: Interventions: Medications acetaminophen (TYLENOL) tablet 650 mg (has no administration in time range) Or acetaminophen (TYLENOL) Suppository 650 mg (has no administration in time range) melatonin tablet 1 mg (has no administration in time range) senna-docusate (SENOKOT-S/PERICOLACE) 8.6-50 MG per tablet 1 tablet (has no administration in time range) Or senna-docusate (SENOKOT-S/PERICOLACE) 8.6-50 MG per tablet 2 tablet (has no administration in time range) polyethylene glycol (MIRALAX) Packet 17 g (has no administration in time range) bisacodyl (DULCOLAX) suppository 10 mg (has no administration in time range) ondansetron (ZOFRAN ODT) ODT tab 4 mg (has no administration in time range) Or ondansetron (ZOFRAN) injection 4 mg (has no administration in time range) lactated ringers infusion (has no administration in time range) oxyCODONE IR (ROXICODONE) half-tab 2.5 mg (has no administration in time range) oxyCODONE (ROXICODONE) tablet 5 mg (has no administration in time range) HYDROmorphone (DILAUDID) injection 0.2 mg (has no administration in time range) HYDROmorphone (DILAUDID) injection 0.4 mg (has no administration in time range) ampicillin-sulbactam (UNASYN) 3 g vial to attach to NS 100 mL bag (has no administration in time range) ketorolac (TORADOL) injection 15 mg (has no administration in time range) naloxone (NARCAN) injection 0.2 mg (has no administration in time range) Or naloxone (NARCAN) injection 0.4 mg (has no administration in time range) Or naloxone (NARCAN) injection 0.2 mg (has no administration in time range) Or naloxone (NARCAN) injection 0.4 mg (has no administration in time range) ampicillin-sulbactam (UNASYN) 3 g vial to attach to NS 100 mL bag (0 g Intravenous Stopped ) potassium chloride (KLOR-CON) Packet 40 mEq (40 mEq Oral $Given 09/04/23 7636) ketorolac (TORADOL) injection 15 mg (15 mg Intravenous $Given 09/04/23 8994) Independent Interpretation (X-rays, CTs, rhythm strip): See MDM Consultations/Discussion of Management or Tests: I discussed the patient and case with the admitting hospitalist service Social Determinants of Health affecting care: See MDM Disposition: The patient was admitted to the hospital under the care of Dr. Gresham. Impression & Plan [facility] Diagnoses: None Medical Decision Makin38 year old female presenting w/ right neck swelling and recent diagnosis of parotitis Social determinants affecting patient's health include: Tobacco use. I reviewed medical records from [place] emergency department visit yesterday, 09/03/2023 DDx includes suppurative parotitis, mumps, viral parotitis, cellulitis. Doubt airway obstruction given history and physical exam. Labs significant for interval increase in white blood cell count. Imaging sig for findings concerning for parotitis and associated cystic lesion. Antibiotics given as noted above. Given the patient's elevating white blood cell count after almost 48 hours of antibiotics, I think it be reasonable to admit the patient for observation for IV antibiotics and further care given progression in symptoms as well. Discussed patient with the admitting hospitalist team who accepted the patient for admission. Patient counseled on all results, disposition and diagnosis. They are understanding and agreeable to plan. Patient admitted in stable condition. Diagnosis: ICD-10-CM 1. Parotitis, acute K11.21 2. Cellulitis of neck L03.221 Discharge Medications: New Prescriptions No medications on file 09/04/2023 Bartolo Andujar MD Vaughn, Christopher E, MD 09/05/23 0000 documented in this encounter Miscellaneous Notes * Plan of Care - Christine Mcgregor RN - 09/07/2023 11:34 AM CDT Reviewed discharge instructions with patient. Questions answered. Patient discharged to home med's information discharge instructions, and belongings. Goal Outcome Evaluation: * Plan of Care - Carol Jack RN - 09/07/2023 6:07 AM CDT Inpatient progress note [id number] Vital Signs: WDL, pt is on RA Pain/Comfort: denies pain Diet/po intake: +po intake, encouraged to drink water. Output: voiding, +BM on 09/06 Activity/Ambulation: UAL, ambulating outside to smoke, gone for 1-2hrs at a time. Educated pt on importance of being in room & participating in cares, being present for treatment. Pt understands risks of leaving the floor, but continues to leave floor. Pertinent assessments: R) neck w/ edema (has gone down since admit), firm to touch. Major Shift Events: pt requesting to leave apurva this am. Plan (Upcoming Events): home w/ po antibx, f/up in ENT clinic w/in 14 days for further testing. Discharge/Transfer Needs: will need script for augmentin. Will continue with POC. * Plan of Care - Rosa Michael RN - 09/06/2023 7:12 PM CDT A&O x 4. Up independent in room. IV SL between use. Denies need for pain medication this shift. Pt doing warm compresses and massages * Utilization Review - Livia Rodriguez MD - 09/06/2023 4:06 PM CDT [facility] Utilization Review Admission Status; Secondary Review Determination Admission Date: 09/04/2023 8:33 PM Under the authority of the Utilization Management Committee, the utilization review process indicated a secondary review on the above patient. The review outcome is based on review of the medical records, discussions with staff, and applying clinical experience noted on the date of the review. (X) Inpatient Status Appropriate - This patient's medical care is consistent with medical management for inpatient care and reasonable inpatient medical practice. RATIONALE FOR DETERMINATION Taylor Solis is a 38 year old female with recent diagnosis of parotitis, who was treated with outpatient oral antibiotics, failed therapy and return with worsening parotid swelling. Evaluated by ENT and registered to observation with acute parotitis failed antibiotic regimen. She is started on IV antibiotics, steroids and analgesics as per recommendation by ENT. However, she is slowly improving but still has firmness and ENT recommends additional IV antibiotics until resolution of swelling. In light of failed outpatient and observation cares, need for ongoing IV antibiotics with anticipated length of stay more than 2 midnights, it is reasonable to advance to inpatient status. Recommendation is communicated to the primary team (CHERYL Recio). The information on this document is developed by the utilization review team in order for the business office to ensure compliance. This only denotes the appropriateness of proper admission status and does not reflect the quality of care rendered. Sincerely, Livia Rodriguez MD, MS Physician Advisor Utilization Review-[place] * Plan of Care - Helen Barnes RN - 09/06/2023 12:00 PM CDT PRIMARY DIAGNOSIS: ACUTE PAIN r/t parotitis OUTPATIENT/OBSERVATION GOALS TO BE MET BEFORE DISCHARGE: 1. Pain Status: Improved-controlled with oral pain medications. 2. Return to near baseline physical activity: Yes 3. Cleared for discharge by consultants (if involved): No Air Hole Driller Nurse Safe discharge environment identified: No Barriers to discharge: Yes Pt states jaw pain has been gone since yesterday afternoon. Unasyn Q 6. Patient has been doing warmcompresses, massages, and using lemon drops. * Pharmacy-Admission Medication History - Alisha Wheeler RPH - 09/06/2023 11:39 AM CDT Pharmacist Admission Medication History Admission medication history is complete. The information provided in this note is only as accurateas the sources available at the time of the update. Information Source(s): Patient via phone Pertinent Information: Pt said that she has two prescriptions at her pharmacy waiting for her to pickup (doxycycline and zithromycin) Changes made to GENERAL INSPECTOR medication list: Added: all meds Deleted: None Changed: None Medication Affordability: Allergies reviewed with patient and updates made in EHR: yes Medication History Completed By: Alisha Wheeler RPH 09/06/2023 11:39 AM GENERAL INSPECTOR Med List Medication Sig Last Dose amoxicillin-clavulanate (AUGMENTIN) 875-125 MG tablet Take 1 tablet by mouth 2 times daily Lot: 14 days 09/04/2023 at am lisdexamfetamine (VYVANSE) 60 MG capsule Take 60 mg by mouth See Admin Instructions Pt take daily on Wednesday through Wednesday09/06/2023 at am * Plan of Care - Helen Barnes RN - 09/06/2023 8:00 AM CDT PRIMARY DIAGNOSIS: ACUTE PAIN r/t parotitis OUTPATIENT/OBSERVATION GOALS TO BE MET BEFORE DISCHARGE: 1. Pain Status: Improved-controlled with oral pain medications. 2. Return to near baseline physical activity: Yes 3. Cleared for discharge by consultants (if involved): No Air Hole Driller Nurse Safe discharge environment identified: No Barriers to discharge: Yes Pt states jaw pain has been gone since yesterday afternoon. Unasyn Q 6. Patient has been doing warmcompresses, massages, and using lemon drops. * Plan of Care - Carol Jack RN - 09/06/2023 4:30 AM CDT PRIMARY DIAGNOSIS: ACUTE PAIN r/t parotitis, r)_ neck swelling OUTPATIENT/OBSERVATION GOALS TO BE MET BEFORE DISCHARGE: 1. Pain Status: no pain at this time 2. Return to near baseline physical activity: Yes 3. Cleared for discharge by consultants (if involved): No Air Hole Driller Nurse Safe discharge environment identified: No Barriers to discharge: Yes Entered by: Carol Jack RN 09/06/2023 5:13 AM Pt resting in bed upon assessment, no pain at this time. UAL, voiding, pt is on RA. IV antibx, warmcompresses/massage. Pt has received 2/3 doses of decadron. Anxious w/ pain, wanting to go outside to smoke. Will most likely go home on po antibx w/ an OPT f/t w/ ENT. May need reimaging, US guided aspiration at that time. Will cont w/ plan of care. Dispo: possible discharge today. Please review provider order for any additional goals. Nurse to notify provider when observation goals have been met and patient is ready for discharge. * Plan of Care - Carol Jack RN - 09/06/2023 12:00 AM CDT PRIMARY DIAGNOSIS: ACUTE PAIN r/t parotitis OUTPATIENT/OBSERVATION GOALS TO BE MET BEFORE DISCHARGE: 1. Pain Status: no pain at this time 2. Return to near baseline physical activity: Yes 3. Cleared for discharge by consultants (if involved): No Air Hole Driller Nurse Safe discharge environment identified: No Barriers to discharge: Yes Entered by: Carol Jack RN 09/06/2023 3:18 AM Pt resting in bed upon assessment, no pain at this time. UAL, voiding, pt is on RA. IV antibx, warmcompresses/massage. Pt has received 2/3 doses of decadron. Will most likely go home on po antibx w/an OPT f/t w/ ENT. May need reimaging, US guided aspiration at that time. Will cont w/ plan of care. Dispo: possible discharge today. Please review provider order for any additional goals. Nurse to notify provider when observation goals have been met and patient is ready for discharge. * Plan of Care - Shanice Irvin RN - 09/05/2023 8:30 PM CDT PRIMARY DIAGNOSIS: Right neck cellulitis OUTPATIENT/OBSERVATION GOALS TO BE MET BEFORE DISCHARGE: 1. Pain Status: only prn given was tylenol 2. Return to near baseline physical activity: Yes 3. Cleared for discharge by consultants (if involved): No Air Hole Driller Nurse Safe discharge environment identified: Yes Barriers to discharge: Yes Entered by: Shanice Irvin RN 09/05/2023 7:58 PM Please review provider order for any additional goals. Nurse to notify provider when observation goals have been met and patient is ready for discharge. Temp: 98.6 ??F (37 ??C) Temp src: Oral BP: 130/83 Pulse: 73 Resp: 16 SpO2: 100 % O2 Device: None (Room air) A&Ox4. Up Independently. Very anxious when in pain, at this time denies pain. Heating pad ordered for right facial pain- heating pad on while awake. Tolerating regular diet. Refusing nicotine patch. Right neck/face swelling/redness- redness receeding from marked border. Plan- IVF, unasyn every 6 hours, mumps pcr pending, pain control, ENT following- will be seen again tomorrow, potassium protocol- recheck in am, daily weight, urine sample collected- negative, IV decadron every 8 hours x3 doses, heat- per order. * Provider Notification - Emily Page PA-C - 09/05/2023 5:34 PM CDT Spoke with Dr Christiansen of ENT recommending ongoing IV Unasyn. Adding Decadron 10 mg q 8 hours x3 doses for supportive treatment. * Plan of Care - Shanice Irvin RN - 09/05/2023 4:15 PM CDT PRIMARY DIAGNOSIS: Right neck cellulitis OUTPATIENT/OBSERVATION GOALS TO BE MET BEFORE DISCHARGE: 1. Pain Status: Improved but still requiring IV narcotics. 2. Return to near baseline physical activity: Yes 3. Cleared for discharge by consultants (if involved): No Air Hole Driller Nurse Safe discharge environment identified: Yes Barriers to discharge: Yes Entered by: Shanice Irvin RN 09/05/2023 7:58 PM Please review provider order for any additional goals. Nurse to notify provider when observation goals have been met and patient is ready for discharge. Temp: 98.6 ??F (37 ??C) Temp src: Oral BP: 130/83 Pulse: 73 Resp: 16 SpO2: 100 % O2 Device: None (Room air) A&Ox4. Up Independently. Very anxious when in pain, IV dilaudid/atarax/toradol given by day shift nurse, prn tylenol also later given/pt refusing oxy. Heating pad ordered for right facial pain- heating pad on while awake. Tolerating regular diet. Refusing nicotine patch. Right neck/face swelling/redness- redness receding from marked border. Plan- IVF, unasyn every 6 hours, mumps pcr pending, pain control, ENT following- will be seen again tomorrow, potassium protocol- recheck in am, daily weight, urine sample collected- negative, IV decadron every 8 hours x3 doses, heat- per order. * Plan of Care - Helen Barnes RN - 09/05/2023 12:00 PM CDT PRIMARY DIAGNOSIS: ACUTE PAIN r/t parotitis OUTPATIENT/OBSERVATION GOALS TO BE MET BEFORE DISCHARGE: 1. Pain Status: Improved-controlled with oral pain medications. 2. Return to near baseline physical activity: Yes 3. Cleared for discharge by consultants (if involved): No Air Hole Driller Nurse Safe discharge environment identified: No Barriers to discharge: Yes Pt states jaw pain comes in jolts and feels like her face is on fire. Toradol given this morning and patient states she has not had any of these jolts since. Pt awaiting ENT consult and receiving IV abx. * Plan of Care - Helen Barnes RN - 09/05/2023 8:00 AM CDT PRIMARY DIAGNOSIS: ACUTE PAIN r/t parotitis OUTPATIENT/OBSERVATION GOALS TO BE MET BEFORE DISCHARGE: 1. Pain Status: Improved-controlled with oral pain medications. 2. Return to near baseline physical activity: Yes 3. Cleared for discharge by consultants (if involved): No Air Hole Driller Nurse Safe discharge environment identified: No Barriers to discharge: Yes Pt was agitated this morning. Wanted to go out for a smoke. Stated she was going out or locking herself in the bathroom and smoking. Educated on risks of leaving floor and smoking's effects on wound healing. * Plan of Care - Carol Jack RN - 09/05/2023 6:00 AM CDT PRIMARY DIAGNOSIS: ACUTE PAIN r/t parotitis OUTPATIENT/OBSERVATION GOALS TO BE MET BEFORE DISCHARGE: 1. Pain Status: Improved-controlled with oral pain medications. 2. Return to near baseline physical activity: Yes 3. 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 Pt very anxious, scared & restless when arrived to room, states she feels better w/ staff support. Feels like swelling to R) neck/face has been getting worse. Face marked. Pt states intermittent sharp pain to R) face & back of neck. R) ear pt c/o swelling & decreased hearing. Oxy x1 w/ tylenol for pain, pt has been rest ing in bed since. Please review provider order for any additional goals. Nurse to notify provider when observation goals have been met and patient is ready for discharge. documented in this encounter Plan of Treatment [...] 09/04/2023 9:59 PM CDT CBC WITH PLATELETS AND DIFFERENTIAL STAT 09/04/2023 8:57 PM CDT EBV DNA PCR QUANTITATIVE WHOLE BLOOD Add-On 09/04/2023 8:57 PM CDT CBC WITH PLATELETS & DIFFERENTIAL STAT 09/04/2023 8:57 PM CDT CRP INFLAMMATION STAT 09/04/2023 8:57 PM CDT BASIC METABOLIC PANEL STAT 09/04/2023 8:57 PM CDT documented in this encounter Results * Potassium (09/07/2023 6:08 AM CDT) Pathologist [facility] Potassium 3.9 3.4 - 5.3 mmol/L 09/07/2023 6:40 AM CDT LABORATORY Blood STRUCTURE OF RIGHT HAND / Unknown Venipuncture / Unknown 09/07/2023 6:08 AM CDT 09/07/2023 6:17 AM CDT Misbil Tamar Layton CHANNEL EXECUTIVE INSIDE ACCOUNT EXECUTIVE LAB - BLOOD ORDERABLES LABORATORY [facility] Acute Care Lab [address] Lab (1st floor, no room number) [place] [address], [facility] [phone] * (ABNORMAL) CRP inflammation (09/06/2023 5:08 AM CDT) CRP Inflammation 8.68(H) <5.00 mg/L 09/06/2023 6:19 AM CDT LABORATORY Blood STRUCTURE OF RIGHT UPPER LIMB / Unknown Venipuncture / Unknown 09/06/2023 5:08 AM CDT 09/06/2023 6:01 AM CDT Misbil Tamar SaqibjamieZiyadjolie CHANNEL EXECUTIVE INSIDE ACCOUNT EXECUTIVE LAB - BLOOD ORDERABLES LABORATORY [facility] Acute Care Lab [address] Lab (1st floor, no room number) [place] [address] [phone] * (ABNORMAL) Comprehensive metabolic panel (09/06/2023 5:08 AM CDT) Pathologist [facility] Sodium 138 135 - 145 mmol/L 09/06/2023 [...] 6:01 AM CDT Misbil Tamar Layton APRN INSIDE ACCOUNT EXECUTIVE LAB - BLOOD ORDERABLES LABORATORY [facility] [address] (1st floor, no room number) [place] [address], [facility] [phone] * (ABNORMAL) CBC with platelets (09/06/2023 5:08 [...] 6:09 AM CDT Misbil Tamar Layton APRN INSIDE ACCOUNT EXECUTIVE LAB - BLOOD ORDERABLES RH LABORATORY [facility] Lab [address] Lab (1st floor, no room number) [place] [address], [facility] [phone] * Urine Drug Screen Panel (09/05/2023 4:30 PM CDT) [facility] Amphetamines Urine Screen Negative Screen Negative [...] CDT 09/05/2023 4:44 PM CDT Chelsea Layton APRN INSIDE ACCOUNT EXECUTIVE LAB - URINE ORDERABLES [facility] Care Lab [address] Lab (1st floor, no room number) [place] [address], [facility] [phone] * Potassium (09/05/2023 6:33 AM CDT) [facility] Potassium 4.3 3.4 - 5.3 mmol/L 09/05/2023 7:17 AM CDT LABORATORY Blood STRUCTURE OF RIGHT HAND / Unknown Venipuncture / Unknown 09/05/2023 6:33 AM CDT 09/05/2023 6:51 AM CDT Margarito Gresham DO LAB - BLOOD ORDERAB LES [facility] Acute Care Lab [address] Lab (1st floor, no room number) [place] [address], [facility] [phone] * Mumps Diagnostic, PCR (09/04/2023 10:21 PM CDT) Mumps Confirmation PCR Negative Negative 10/04/2023 3:16 PM AEROPLANE PILOT [facility] See Scanned Result MUMPS DIAGNOSTIC PCR-Scanned 10/04/2023 3:16 PM AEROPLANE PILOT [facility] Swab ORAL CAVITY STRUCTURE / Unknown Non-blood Collection / Unknown 09/04/2023 10:21 PM CDT 09/04/2023 10:31 PM CDT [facility]ative [facility] - 10/04/2023 3:16 PM AEROPLANE PILOT Verified by Sandra Starks on 09/08/2023. Bartolo Andujar MD LAB - BODY FLUID S ORDERABLES [facility] Lab Building [address] [place] [address] * US Head Neck Soft [...] EXAM: US HEAD NECK SOFT TISSUE LOCATION: [facility] DATE: 09/04/2023 INDICATION: Right parotitis, worsening, eval signs of abscess COMPARISON: None. TECHNIQUE: Routine. Procedure Note Myke Clement MD - 09/04/2023 EXAM: US HEAD NECK SOFT TISSUE LOCATION: [facility] DATE: 09/04/2023 INDICATION: Right parotitis, worsening, [...] MD IMG US ORDERABLE S * (ABNORMAL) EBV DNA PCR Quantitative Whole [...] by the Infectious Diseases Diagnostic [facility] at [facility]. The primers and probes for each [...] by the Infectious Diseases Diagnostic Laboratory at [facility]. The primers and probes for each [...] Andujar MD LAB - BLOOD [facility] Organization Address City/State/ZIP Co de Phone Number [facility] IDD LABORATORY [facility] Inf. Diseases Diag. Lab [address] [place] [address], [facility] [phone] * (ABNORMAL) CBC with platelets and differential [...] Andujar MD LAB - BLOOD [facility] Organization Address City/State/ZIP Co de Phone Number RH LABORATORY [facility] Lab [address] Lab (1st floor, no room number) [place] [address], [facility] [phone] * (ABNORMAL) Basic metabolic panel (09/04/2023 8:57 PM CDT) [facility] Sodium 139 135 - 145 mmol/L [...] CDT Bartolo Andujar MD LAB - BLOOD [facility] Organization Address City/State/ZIP Co de Phone Number LABORATORY [facility] Lab [address] [facility] Lab (1st floor, no room number) [place] [address], [facility] [phone] * CRP inflammation (09/04/2023 8:57 PM CDT) [facility] Signature CRP Inflammation <3.00 <5.00 mg/L 09/04/20 9:24 PM CDT LABORATORY Blood VENOUS LINE / Unknown Venipuncture / Unknown 09/04/2023 8:57 PM CDT 09/04/2023 9:03 PM CDT Bartolo Andujar MD LAB - BLOOD TIFFANIE KAUR [facility] Acute Care Lab [address] [facility] Lab (1st floor, no room number) [place] [address], [facility] [phone] documented in this encounter Visit Diagnoses Diagnosis Cellulitis of neck- Primary Cellulitis and abscess of neck Parotitis, acute Sialoadenitis Cellulitis of neck Cellulitis and abscess of neck Parotitis, acute Sialoadenitis documented in this encounter Admitting Diagnoses Diagnosis Cellulitis of neck Cellulitis and abscess of neck documented in this encounter Administered Medications Inactive Administered Medications - up to 3 most recent administrations Medication Order MAR Action Action Date Dose Rate Site acetaminophen (TYLENOL) Suppository 650 mg 650 mg, Rectal, EVERY 6 HOURS PRN, mild pain, other, and adjunct with moderate or severe pain or per patient request, Starting on 09/04/23 at 2337, Alternate with ibuprofen if ordered. Maximum acetaminophen dose from all sources = 75 mg/kg/day not to exceed 4 grams/day. acetaminophen (TYLENOL) tablet 650 mg 650 mg, Oral, EVERY 6 HOURS PRN, mild pain, other, and adjunct with moderate or severe pain or per patient request, Starting on 09/04/23 at 2337, Alternate with ibuprofen if ordered. Maximum acetaminophen dose from all sources = 75 mg/kg/day not to exceed 4 grams/day. $Given 09/05/2023 6:45 PM CDT 650 mg $Given 09/05/2023 4:13 AM CDT 650 mg ampicillin-sulbactam (UNASYN) 3 g vial to attach to NS 100 mL bag STAT, 3 g, Intravenous, ONCE, On 09/04/23 at 2135, For 1 dose, Indications: Skin and Soft Tissue Infection, R parotitis $New Bag 09/04/2023 10:18 PM CDT 3 g ampicillin-sulbactam (UNASYN) 3 g vial to attach to NS 100 mL bag Routine, 3 g, Intravenous, EVERY 6 HOURS, First dose on 09/05/23 at 0400, Indications: Skin and Soft Tissue Infection $New Bag 09/07/2023 10:30 AM CDT 3 g $New Bag 09/07/2023 4:12 AM CDT 3 g $New Bag 09/06/2023 9:38 PM CDT 3 g dexAMETHasone PF (DECADRON) injection 10 mg 10 mg, Intravenous, EVERY 8 HOURS, Administer over 1 Minutes, First dose on 09/05/23 at 1800, For 3 doses $Given 09/06/2023 9:38 AM CDT 10 mg $Given 09/06/2023 1:58 AM CDT 10 mg $Given 09/05/2023 6:45 PM CDT 10 mg HYDROmorphone (DILAUDID) injection 0.4 mg 0.4 mg, Intravenous, EVERY 2 HOURS PRN, severe pain, IF patient cannot take oral opioid OR IF pain not managed with non-pharmacological, non-opioid, or oral opioid interventions if ordered, Starting on 09/04/23 at 2337, May use concomitant with non-opioid analgesics. $Given 09/05/2023 3:41 PM CDT 0.4 mg $Given 09/05/2023 3:27 AM CDT 0.4 mg hydrOXYzine (ATARAX) tablet 25 mg 25 mg, Oral, EVERY 6 HOURS PRN, other, adjuvant pain, Starting on 09/05/23 at 0859, Start with 25 mg for the initial dose. If the 25 mg dose is ineffective, increase to the 50 mg dose at the next administration time and maintain further doses at 50 mg. If the 50 mg dose is ineffective, contact the provider. hydrOXYzine (ATARAX) tablet 50 mg 50 mg, Oral, EVERY 6 HOURS PRN, other, adjuvant pain, Starting on 09/05/23 at 0859, Start with 25 mg for the initial dose. If the 25 mg dose is ineffective, increase to the 50 mg dose at the next administration time and maintain further doses at 50 mg. If the 50 mg dose is ineffective, contact the provider. $Given 09/05/2023 3:16 PM CDT 50 mg $Given 09/05/2023 9:36 AM CDT 50 mg ibuprofen (ADVIL/MOTRIN) tablet 600 mg 600 mg, Oral, EVERY 6 HOURS PRN, inflammatory pain, Starting on 09/06/23 at 1657, Give with food. ketorolac (TORADOL) injection 15 mg 15 mg, Intravenous, ONCE, On 09/04/23 at 2300, For 1 dose, Can cause pain on injection. If ordered intravenously (IV) : administer through a running maintenance fluid over 1 minute followed by a flush. If patient complains of pain on injection, may dilute 15-30 mg in 5 mL and push over 1 to 2 minutes. $Given 09/04/2023 11:14 PM CDT 15 mg ketorolac (TORADOL) injection 15 mg 15 mg, Intravenous, EVERY 6 HOURS PRN, inflammatory pain, Starting on 09/04/23 at 2337, For 5 doses, Can cause pain on injection. If ordered intravenously (IV) : administer through a running maintenance fluid over 1 minute followed by a flush. If patient complains of pain on injection, may dilute 15-30 mg in 5 mL and push over 1 to 2 minutes. $Given 09/05/2023 3:16 PM CDT 15 mg $Given 09/05/2023 9:37 AM CDT 15 mg lactated ringers infusion at 100 mL/hr, Intravenous, CONTINUOUS, Starting on 09/04/23 at 2340, Until 09/06/23 at 1647 $New Bag 09/06/2023 4:46 AM CDT 100 mL/hr Rate/Dose Verify 09/05/2023 11:20 PM CDT 100 mL /hr $New Bag 09/05/2023 6:33 PM CDT 100 mL/hr lisdexamfetamine (VYVANSE) capsule 60 mg 60 mg, Oral, DAILY, First dose on 09/06/23 at 0800 $Given 09/07/2023 8:17 AM CDT 60 mg $Given 09/06/2023 10:51 AM CDT 60 mg naloxone (NARCAN) injection 0.2 mg 0.2 mg, Intravenous, EVERY 2 MIN PRN, opioid reversal, Starting on 09/04/23 at 2343, Administer intravenous route when available and notify provider when administered. For unintended sedation or respiratory depression if all of the below criteria are met: ~ respiratory rate LESS than or EQUAL to 8. ~SaO2 less than 92% and or/end-tidal CO2 is greater than 50. ~ the patient is receiving an opioid, has unintended sedations assessed as RASS (-3), and is currently not on mechanical ventilation. RASS scale moderate (-3) is movement or eye opening to voice but no eye contact. Patient Monitoring Once the patient has demonstrated a response to the naloxone, continue to monitor respiratory rate, depth, oxygen saturation and end-tidal CO2 (if available) every 15 minutes x 2, then every 30 minutes x 2, then every 1 hour x 1 after each naloxone dose. Consider transfer to ICU if patient respiratory parameters have not improved after 4 naloxone doses. naloxone (NARCAN) injection 0.2 mg 0.2 mg, Intramuscular, EVERY 2 MIN PRN, opioid reversal, Starting on 09/04/23 at 2343, Administer intramuscular if an intravenous route is not available and notify provider when administered. For unintended sedation or respiratory depression if all of the below criteria are met: ~ respiratory rate LESS than or EQUAL to 8. ~SaO2 less than 92% and or/end-tidal CO2 is greater than 50. ~ the patient is receiving an opioid, has unintended sedations assessed as RASS (-3), and is currently not on mechanical ventilation. RASS scale moderate (-3) is movement or eye opening to voice but no eye contact. Patient Monitoring Once the patient has demonstrated a response to the naloxone, continue to monitor respiratory rate, depth, oxygen saturation and end-tidal CO2 (if available) every 15 minutes x 2, then every 30 minutes x 2, then every 1 hour x 1 after each naloxone dose. Consider transfer to ICU if patient respiratory parameters have not improved after 4 naloxone doses. naloxone (NARCAN) injection 0.4 mg 0.4 mg, Intravenous, EVERY 2 MIN PRN, opioid reversal, Starting on 09/04/23 at 2343, Administer intravenous route when available and notify provider when administered. For unintended sedation or respiratory depression if all of the below criteria are met: ~ respiratory rate LESS than or EQUAL to 8. ~ SaO2 less than 92% and or/end-tidal CO2 is greater than 50. ~ the patient is receiving an opioid, has unintended sedation assessed as RASS (-4) or (-5) and patient is currently not on mechanical ventilation. RASS scale (-4) is deep sedation with no response to voice but movement or eye opening to physical stimulation. RASS scale (-5) is unarousable. Patient Monitoring Once the patient has demonstrated a response to the naloxone, continue to monitor respiratory rate, depth, oxygen saturation and end-tidal CO2 (if available) every 15 minutes x 2, then every 30 minutes x 2, then every 1 hour x 1 after each naloxone dose. Consider transfer to ICU if patient respiratory parameters have not improved after 4 naloxone doses. naloxone (NARCAN) injection 0.4 mg 0.4 mg, Intramuscular, EVERY 2 MIN PRN, opioid reversal, Starting on 09/04/23 at 2343, Administer intramuscular if an intravenous route is not available and notify provider when administered. For unintended sedation or respiratory depression if all of the below criteria are met: ~ respiratory rate LESS than or EQUAL to 8. ~ SaO2 less than 92% and or/end-tidal CO2 is greater than 50. ~ the patient is receiving an opioid, has unintended sedation assessed as RASS (-4) or (-5) and patient is currently not on mechanical ventilation. RASS scale (-4) is deep sedation with no response to voice but movement or eye opening to physical stimulation. RASS scale (-5) is unarousable. Patient Monitoring Once the patient has demonstrated a response to the naloxone, continue to monitor respiratory rate, depth, oxygen saturation and end-tidal CO2 (if available) every 15 minutes x 2, then every 30 minutes x 2, then every 1 hour x 1 after each naloxone dose. Consider transfer to ICU if patient respiratory parameters have not improved after 4 naloxone doses. nicotine (NICODERM CQ) 21 MG/24HR 24 hr patch 1 patch 1 patch, Transdermal, DAILY, Administer over 24 Hours, First dose on 09/05/23 at 0900, Reminder: Remove previous patch before applying new patch. nicotine Patch in Place First dose on 09/05/23 at 0900, Chart every shift, confirming that patch is still in place on patient (no barcode scan needed). See patch order for dose information. ondansetron (ZOFRAN ODT) ODT tab 4 mg 4 mg, Oral, EVERY 6 HOURS PRN, nausea, vomiting, Starting on 09/04/23 at 2337, This is Step 1 of nausea and vomiting management. If nausea not resolved in 15 minutes, go to Step 2 prochlorperazine (COMPAZINE). With dry hands, peel back foil backing and gently remove tablet. Do not push oral disintegrating tablet through foil backing. Administer immediately on tongue and oral disintegrating tablet dissolves in seconds, then swallow with saliva. Liquid not required. ondansetron (ZOFRAN) injection 4 mg 4 mg, Intravenous, EVERY 6 HOURS PRN, nausea, vomiting, Administer over 2-5 Minutes, Starting on 09/04/23 at 2337, Give IF patient unable to tolerate oral medication. This is Step 1 of nausea and vomiting management. If nausea not resolved in 15 minutes, go to Step 2 prochlorperazine (COMPAZINE). Irritant. oxyCODONE IR (ROXICODONE) half-tab 2.5 mg 2.5 mg, Oral, EVERY 4 HOURS PRN, moderate pain, IF pain not managed with non-pharmacological and non-opioid interventions, Starting on 09/04/23 at 2337, May use concomitant with non-opioid analgesics. $Given 09/05/2023 4:14 AM CDT 2.5 mg pantoprazole (PROTONIX) EC tablet 20 mg 20 mg, Oral, AT BEDTIME, First dose on 09/06/23 at 2200, DO NOT CRUSH. potassium chloride (KLOR-CON) Packet 40 mEq 40 mEq, Oral, ONCE, On 09/04/23 at 2130, For 1 dose, Dissolve packet contents in 4-8 ounces of cold water or juice. $Given 09/04/2023 10:18 PM CDT 40 mE q senna-docusate (SENOKOT-S/PERICOLACE) 8.6-50 MG per tablet 1 tablet 1 tablet, Oral, 2 TIMES DAILY PRN, constipation, Starting on 09/04/23 at 2337, If no bowel movement in 24 hours, increase to 2 tablets by mouth. IF more than 1 constipation PRN medication is ordered, administer step-sultana as indicated, moving to the next step ONLY if prior step ineffective. Step 1: senna-docusate (SENOKOT-S; PERICOLACE) OR bisacodyl (DULCOLAX) EC tablet Step 2: magnesium hydroxide (MILK OF MAGNESIA) OR polyethylene glycol (MIRALAX/GLYCOLAX) Step 3: bisacodyl (DULCOLAX) suppository Step 4: sodium phosphate (FLEET ENEMA) Hold for loose stools. senna-docusate (SENOKOT-S/PERICOLACE) 8.6-50 MG per tablet 2 tablet 2 tablet, Oral, 2 TIMES DAILY PRN, constipation, Starting on 09/04/23 at 2337, IF more than 1 constipation PRN medication is ordered, administer step-sultana as indicated, moving to the next step ONLY if prior step ineffective. Step 1: senna-docusate (SENOKOT-S; PERICOLACE) OR bisacodyl (DULCOLAX) EC tablet Step 2: magnesium hydroxide (MILK OF MAGNESIA) OR polyethylene glycol (MIRALAX/GLYCOLAX) Step 3: bisacodyl (DULCOLAX) suppository Step 4: sodium phosphate (FLEET ENEMA) Hold for loose stools. documented in this encounter Active and Recently Administered Medications Times are shown in CDT. Scheduled Medication Order 09/05/2023 09/06/2023 09/07/2023 ampicillin-sulbactam (UNASYN) 3 g vial to attach to NS 100 mL bag Routine, 3 g, Intravenous, EVERY 6 HOURS, First dose on 09/05/23 at 0400, Indications: Skin and Soft Tissue Infection 0329 ($New Bag - Provider: Dwyane Ferrer RN)0936 ($New Bag - Provider: Helen Barnes RN)1517 ($New Bag - Provider: Helen Barnes RN)2241 ($New Bag - Provider: Shanice Irvin RN) 0446 ($New Bag - Provider: Laxmi Armstrong RN)0938 ($New Bag - Provider: Helen Barnes RN)1538 ($New Bag - Provider: Rosa Michael RN)2138 ($New Bag - Provider: Carol Jack RN) 0412 ($New Bag - Provider: Carol Jack RN)1030 ($New Bag - Provider: Christine Mcgregor RN) dexAMETHasone PF (DECADRON) injection 10 mg (COMPLETED) 10 mg, Intravenous, EVERY 8 HOURS, Administer over 1 Minutes, First dose on 09/05/23 at 1800, For 3 doses 1845 ($Given - Provider: Shanice Irvin RN) 0158 ($Given - Provider: Carol Jack RN)0938 ($Given - Provider: Helen Barnes RN) lisdexamfetamine (VYVANSE) capsule 60 mg 60 mg, Oral, DAILY, First dose on 09/06/23 at 0800 1828 (Not Given - Provider: Shanice Irvin RN - Reason: Patient/family refused) 1051 ($Given - Provider: Helen Barnes RN) 0817 ($Given - Provider: Christine Mcgregor RN) lisdexamfetamine (VYVANSE) capsule 60 mg 60 mg, Oral, SEE ADMIN INSTRUCTIONS, Starting on Wed09/07/23 at 1035 nicotine (NICODERM CQ) 21 MG/24HR 24 hr patch 1 patch 1 patch, Transdermal, DAILY, Administer over 24 Hours, First dose on 09/05/23 at 0900, Reminder: Remove previous patch before applying new patch. 1428 (Not Given - Provider: Helen Barnes RN - Reason: Patient/family refused) 0841 (Not Given - Provider: Helen Barnes RN - Reason: Other) 0818 (Not Given - Provider: Christine Mcgregor RN - Reason: Patient/family refused) nicotine Patch in Place First dose on 09/05/23 at 0900, Chart every shift, confirming that patch is still in place on patient (no barcode scan needed). See patch order for dose information. 1428 (Patch Free Period - Provider: Helen Barnes RN)1614 (Patch Free Period - Provider: Shanice Irvin RN) 0100 (Patch Free Period - Provider: Shanice Irvin RN)0841 (Patch Free Period - Provider: Helen Barnes RN)1657 (Patch Free Period - Provider: Rosa Michael RN) 0031 (Patch Free Period - Provider: Carol Jack RN - Comment: does not have patch on)0818 (Hold - Provider: Christine Mcgregor RN - Reason: Patient/family refused) pantoprazole (PROTONIX) EC tablet 20 mg 20 mg, Oral, AT BEDTIME, First dose on 09/06/23 at 2200, DO NOT CRUSH. 2138 (Not Given - Provider: Carol Jack RN - Reason: Patient/family refused) Continuous Medication Order 09/05/2023 09/06/2023 09/07/2023 lactated ringers infusion (CANCELED) at 100 mL/hr, Intravenous, CONTINUOUS, Starting on 09/04/23 at 2340, Until 09/06/23 at 1647 0413 ($New Bag - Provider: Carol Jack RN)1613 (Rate/Dose Change - Provider: Shanice Irvin RN)1833 ($New Bag - Provider: Shanice Irvin RN)2320 (Rate/Dose Verify - Provider: Shanice Irvin RN) 0446 ($New Bag - Provider: Laxmi Armstrong RN)1510 (Stopped - Provider: Helen Barnes RN) PRN Medication Order 09/05/2023 09/06/2023 09/07/2023 acetaminophen (TYLENOL) Suppository 650 mg(Linked Group 1) 650 mg, Rectal, EVERY 6 HOURS PRN, mild pain, other, and adjunct with moderate or severe pain or per patient request, Starting on 09/04/23 at 2337, Alternate with ibuprofen if ordered. Maximum acetaminophen dose from all sources = 75 mg/kg/day not to exceed 4 grams/day. 0413 (See Alternative - Provider: Carol Jack RN)1845 (See Alternative - Provider: Shanice Irvin RN) acetaminophen (TYLENOL) tablet 650 mg(Linked Group 1) 650 mg, Oral, EVERY 6 HOURS PRN, mild pain, other, and adjunct with moderate or severe pain or per patient request, Starting on 09/04/23 at 2337, Alternate with ibuprofen if ordered. Maximum acetaminophen dose from all sources = 75 mg/kg/day not to exceed 4 grams/day. 0413 ($Given - Provider: Carol Jack RN)1845 ($Given - Provider: Shanice Irvni RN) bisacodyl (DULCOLAX) suppository 10 mg 10 mg, Rectal, DAILY PRN, constipation, Starting on 09/04/23 at 2337, IF more than 1 constipation PRN medication is ordered, administer step-sultana as indicated, moving to the next step ONLY if prior step ineffective. Step 1: senna-docusate (SENOKOT-S; PERICOLACE) OR bisacodyl (DULCOLAX) EC tablet Step 2: magnesium hydroxide (MILK OF MAGNESIA) OR polyethylene glycol (MIRALAX/GLYCOLAX) Step 3: bisacodyl (DULCOLAX) suppository Step 4: sodium phosphate (FLEET ENEMA) Hold for loose stools. HYDROmorphone (DILAUDID) injection 0.4 mg (CANCELED) 0.4 mg, Intravenous, EVERY 2 HOURS PRN, severe pain, IF patient cannot take oral opioid OR IF pain not managed with non-pharmacological, non-opioid, or oral opioid interventions if ordered, Starting on 09/04/23 at 2337, May use concomitant with non-opioid analgesics. 0327 ($Given - Provider: Dwayne Ferrer RN)1541 ($Given - Provider: Helen Barnes RN) hydrOXYzine (ATARAX) tablet 25 mg(Linked Group 2) 25 mg, Oral, EVERY 6 HOURS PRN, other, adjuvant pain, Starting on 09/05/23 at 0859, Start with 25 mg for the initial dose. If the 25 mg dose is ineffective, increase to the 50 mg dose at the next administration time and maintain further doses at 50 mg. If the 50 mg dose is ineffective, contact the provider. 0936 (See Alternative - Provider: Helen Barnes RN)1516 (See Alternative - Provider: Helen Barnes RN)1601 (Canceled Entry - Provider: Shanice Irvin RN) hydrOXYzine (ATARAX) tablet 50 mg(Linked Group 2) 50 mg, Oral, EVERY 6 HOURS PRN, other, adjuvant pain, Starting on 09/05/23 at 0859, Start with 25 mg for the initial dose. If the 25 mg dose is ineffective, increase to the 50 mg dose at the next administration time and maintain further doses at 50 mg. If the 50 mg dose is ineffective, contact the provider. 0936 ($Given - Provider: Helen Barnes RN)1516 ($Given - Provider: Helen Barnes RN)1601 (See Alternative - Provider: Shanice Irvin RN) ibuprofen (ADVIL/MOTRIN) tablet 600 mg 600 mg, Oral, EVERY 6 HOURS PRN, inflammatory pain, Starting on 09/06/23 at 1657, Give with food. ketorolac (TORADOL) injection 15 mg (CANCELED) 15 mg, Intravenous, EVERY 6 HOURS PRN, inflammatory pain, Starting on 09/04/23 at 2337, For 5 doses, Can cause pain on injection. If ordered intravenously (IV) : administer through a running maintenance fluid over 1 minute followed by a flush. If patient complains of pain on injection, may dilute 15-30 mg in 5 mL and push over 1 to 2 minutes. 0929 ($Given - Provider: Helen Barnes, RN)1516 ($Given - Provider: Helen Barnes RN) melatonin tablet 1 mg 1 mg, Oral, AT BEDTIME PRN, sleep, Starting on 09/04/23 at 2337, Do not give unless at least 6 hours of uninterrupted sleep is expected. naloxone (NARCAN) injection 0.2 mg(Linked Group 3) 0.2 mg, Intravenous, EVERY 2 MIN PRN, opioid reversal, Starting on 09/04/23 at 2343, Administer intravenous route when available and notify provider when administered. For unintended sedation or respiratory depression if all of the below criteria are met: ~ respiratory rate LESS than or EQUAL to 8. ~SaO2 less than 92% and or/end-tidal CO2 is greater than 50. ~ the patient is receiving an opioid, has unintended sedations assessed as RASS (-3), and is currently not on mechanical ventilation. RASS scale moderate (-3) is movement or eye opening to voice but no eye contact. Patient Monitoring Once the patient has demonstrated a response to the naloxone, continue to monitor respiratory rate, depth, oxygen saturation and end-tidal CO2 (if available) every 15 minutes x 2, then every 30 minutes x 2, then every 1 hour x 1 after each naloxone dose. Consider transfer to ICU if patient respiratory parameters have not improved after 4 naloxone doses. naloxone (NARCAN) injection 0.2 mg(Linked Group 3) 0.2 mg, Intramuscular, EVERY 2 MIN PRN, opioid reversal, Starting on 09/04/23 at 2343, Administer intramuscular if an intravenous route is not available and notify provider when administered. For unintended sedation or respiratory depression if all of the below criteria are met: ~ respiratory rate LESS than or EQUAL to 8. ~SaO2 less than 92% and or/end-tidal CO2 is greater than 50. ~ the patient is receiving an opioid, has unintended sedations assessed as RASS (-3), and is currently not on mechanical ventilation. RASS scale moderate (-3) is movement or eye opening to voice but no eye contact. Patient Monitoring Once the patient has demonstrated a response to the naloxone, continue to monitor respiratory rate, depth, oxygen saturation and end-tidal CO2 (if available) every 15 minutes x 2, then every 30 minutes x 2, then every 1 hour x 1 after each naloxone dose. Consider transfer to ICU if patient respiratory parameters have not improved after 4 naloxone doses. naloxone (NARCAN) injection 0.4 mg(Linked Group 3) 0.4 mg, Intravenous, EVERY 2 MIN PRN, opioid reversal, Starting on 09/04/23 at 2343, Administer intravenous route when available and notify provider when administered. For unintended sedation or respiratory depression if all of the below criteria are met: ~ respiratory rate LESS than or EQUAL to 8. ~ SaO2 less than 92% and or/end-tidal CO2 is greater than 50. ~ the patient is receiving an opioid, has unintended sedation assessed as RASS (-4) or (-5) and patient is currently not on mechanical ventilation. RASS scale (-4) is deep sedation with no response to voice but movement or eye opening to physical stimulation. RASS scale (-5) is unarousable. Patient Monitoring Once the patient has demonstrated a response to the naloxone, continue to monitor respiratory rate, depth, oxygen saturation and end-tidal CO2 (if available) every 15 minutes x 2, then every 30 minutes x 2, then every 1 hour x 1 after each naloxone dose. Consider transfer to ICU if patient respiratory parameters have not improved after 4 naloxone doses. naloxone (NARCAN) injection 0.4 mg(Linked Group 3) 0.4 mg, Intramuscular, EVERY 2 MIN PRN, opioid reversal, Starting on 09/04/23 at 2343, Administer intramuscular if an intravenous route is not available and notify provider when administered. For unintended sedation or respiratory depression if all of the below criteria are met: ~ respiratory rate LESS than or EQUAL to 8. ~ SaO2 less than 92% and or/end-tidal CO2 is greater than 50. ~ the patient is receiving an opioid, has unintended sedation assessed as RASS (-4) or (-5) and patient is currently not on mechanical ventilation. RASS scale (-4) is deep sedation with no response to voice but movement or eye opening to physical stimulation. RASS scale (-5) is unarousable. Patient Monitoring Once the patient has demonstrated a response to the naloxone, continue to monitor respiratory rate, depth, oxygen saturation and end-tidal CO2 (if available) every 15 minutes x 2, then every 30 minutes x 2, then every 1 hour x 1 after each naloxone dose. Consider transfer to ICU if patient respiratory parameters have not improved after 4 naloxone doses. ondansetron (ZOFRAN ODT) ODT tab 4 mg(Linked Group 4) 4 mg, Oral, EVERY 6 HOURS PRN, nausea, vomiting, Starting on 09/04/23 at 2337, This is Step 1 of nausea and vomiting management. If nausea not resolved in 15 minutes, go to Step 2 prochlorperazine (COMPAZINE). With dry hands, peel back foil backing and gently remove tablet. Do not push oral disintegrating tablet through foil backing. Administer immediately on tongue and oral disintegrating tablet dissolves in seconds, then swallow with saliva. Liquid not required. ondansetron (ZOFRAN) injection 4 mg(Linked Group 4) 4 mg, Intravenous, EVERY 6 HOURS PRN, nausea, vomiting, Administer over 2-5 Minutes, Starting on 09/04/23 at 2337, Give IF patient unable to tolerate oral medication. This is Step 1 of nausea and vomiting management. If nausea not resolved in 15 minutes, go to Step 2 prochlorperazine (COMPAZINE). Irritant. oxyCODONE (ROXICODONE) tablet 5 mg 5 mg, Oral, EVERY 4 HOURS PRN, severe pain, IF pain not managed with non-pharmacological and non-opioid interventions, Starting on 09/04/23 at 2337, May use concomitant with non-opioid analgesics. oxyCODONE IR (ROXICODONE) half-tab 2.5 mg 2.5 mg, Oral, EVERY 4 HOURS PRN, moderate pain, IF pain not managed with non-pharmacological and non-opioid interventions, Starting on 09/04/23 at 2337, May use concomitant with non-opioid analgesics. 0414 ($Given - Provider: Carol Jack RN) polyethylene glycol (MIRALAX) Packet 17 g 17 g, Oral, DAILY PRN, constipation, Starting on 09/04/23 at 2337, IF more than 1 constipation PRN medication is ordered, administer step-sultana as indicated, moving to the next step ONLY if prior step ineffective. Step 1: senna-docusate (SENOKOT-S; PERICOLACE) OR bisacodyl (DULCOLAX) EC tablet Step 2: magnesium hydroxide (MILK OF MAGNESIA) OR polyethylene glycol (MIRALAX/GLYCOLAX) Step 3: bisacodyl (DULCOLAX) suppository Step 4: sodium phosphate (FLEET ENEMA) 1 Packet = 17 grams. Mix each gram with at least 1/2 ounce (15 mL) of water - 8 ounces for 17 g dose, 4 ounces for 8.5 g dose, 2 ounces for 4 g dose. Follow with the same volume of water. Hold for loose stools unless being administered as part of a bowel prep regimen or bowel clean out. senna-docusate (SENOKOT-S/PERICOLACE) 8.6-50 MG per tablet 1 tablet(Linked Group 5) 1 tablet, Oral, 2 TIMES DAILY PRN, constipation, Starting on 09/04/23 at 2337, If no bowel movement in 24 hours, increase to 2 tablets by mouth. IF more than 1 constipation PRN medication is ordered, administer step-sultana as indicated, moving to the next step ONLY if prior step ineffective. Step 1: senna-docusate (SENOKOT-S; PERICOLACE) OR bisacodyl (DULCOLAX) EC tablet Step 2: magnesium hydroxide (MILK OF MAGNESIA) OR polyethylene glycol (MIRALAX/GLYCOLAX) Step 3: bisacodyl (DULCOLAX) suppository Step 4: sodium phosphate (FLEET ENEMA) Hold for loose stools. senna-docusate (SENOKOT-S/PERICOLACE) 8.6-50 MG per tablet 2 tablet(Linked Group 5) 2 tablet, Oral, 2 TIMES DAILY PRN, constipation, Starting on 09/04/23 at 2337, IF more than 1 constipation PRN medication is ordered, administer step-sultana as indicated, moving to the next step ONLY if prior step ineffective. Step 1: senna-docusate (SENOKOT-S; PERICOLACE) OR bisacodyl (DULCOLAX) EC tablet Step 2: magnesium hydroxide (MILK OF MAGNESIA) OR polyethylene glycol (MIRALAX/GLYCOLAX) Step 3: bisacodyl (DULCOLAX) suppository Step 4: sodium phosphate (FLEET ENEMA) Hold for loose stools. Linked Groups Order Group 1: acetaminophen (TYLENOL) tablet 650 mgJump to med 650 mg, Oral, EVERY 6 HOURS PRN, mild pain, other, and adjunct with moderate or severe pain or per patient request, Starting on 09/04/23 at 2337, Alternate with ibuprofen if ordered. Maximum acetaminophen dose from all sources = 75 mg/kg/day not to exceed 4 grams/day. Or acetaminophen (TYLENOL) Suppository 650 mgJump to med 650 mg, Rectal, EVERY 6 HOURS PRN, mild pain, other, and adjunct with moderate or severe pain or per patient request, Starting on 09/04/23 at 2337, Alternate with ibuprofen if ordered. Maximum acetaminophen dose from all sources = 75 mg/kg/day not to exceed 4 grams/day. Group 2: hydrOXYzine (ATARAX) tablet 25 mgJump to med 25 mg, Oral, EVERY 6 HOURS PRN, other, adjuvant pain, Starting on 09/05/23 at 0859, Start with 25 mg for the initial dose. If the 25 mg dose is ineffective, increase to the 50 mg dose at the next administration time and maintain further doses at 50 mg. If the 50 mg dose is ineffective, contact the provider. Or hydrOXYzine (ATARAX) tablet 50 mgJump to med 50 mg, Oral, EVERY 6 HOURS PRN, other, adjuvant pain, Starting on 09/05/23 at 0859, Start with 25 mg for the initial dose. If the 25 mg dose is ineffective, increase to the 50 mg dose at the next administration time and maintain further doses at 50 mg. If the 50 mg dose is ineffective, contact the provider. Group 3: naloxone (NARCAN) injection 0.2 mgJump to med 0.2 mg, Intravenous, EVERY 2 MIN PRN, opioid reversal, Starting on 09/04/23 at 2343, Administer intravenous route when available and notify provider when administered. For unintended sedation or respiratory depression if all of the below criteria are met: ~ respiratory rate LESS than or EQUAL to 8. ~SaO2 less than 92% and or/end-tidal CO2 is greater than 50. ~ the patient is receiving an opioid, has unintended sedations assessed as RASS (-3), and is currently not on mechanical ventilation. RASS scale moderate (-3) is movement or eye opening to voice but no eye contact. Patient Monitoring Once the patient has demonstrated a response to the naloxone, continue to monitor respiratory rate, depth, oxygen saturation and end-tidal CO2 (if available) every 15 minutes x 2, then every 30 minutes x 2, then every 1 hour x 1 after each naloxone dose. Consider transfer to ICU if patient respiratory parameters have not improved after 4 naloxone doses. Or naloxone (NARCAN) injection 0.4 mgJump to med 0.4 mg, Intravenous, EVERY 2 MIN PRN, opioid reversal, Starting on 09/04/23 at 2343, Administer intravenous route when available and notify provider when administered. For unintended sedation or respiratory depression if all of the below criteria are met: ~ respiratory rate LESS than or EQUAL to 8. ~ SaO2 less than 92% and or/end-tidal CO2 is greater than 50. ~ the patient is receiving an opioid, has unintended sedation assessed as RASS (-4) or (-5) and patient is currently not on mechanical ventilation. RASS scale (-4) is deep sedation with no response to voice but movement or eye opening to physical stimulation. RASS scale (-5) is unarousable. Patient Monitoring Once the patient has demonstrated a response to the naloxone, continue to monitor respiratory rate, depth, oxygen saturation and end-tidal CO2 (if available) every 15 minutes x 2, then every 30 minutes x 2, then every 1 hour x 1 after each naloxone dose. Consider transfer to ICU if patient respiratory parameters have not improved after 4 naloxone doses. Or naloxone (NARCAN) injection 0.2 mgJump to med 0.2 mg, Intramuscular, EVERY 2 MIN PRN, opioid reversal, Starting on 09/04/23 at 2343, Administer intramuscular if an intravenous route is not available and notify provider when administered. For unintended sedation or respiratory depression if all of the below criteria are met: ~ respiratory rate LESS than or EQUAL to 8. ~SaO2 less than 92% and or/end-tidal CO2 is greater than 50. ~ the patient is receiving an opioid, has unintended sedations assessed as RASS (-3), and is currently not on mechanical ventilation. RASS scale moderate (-3) is movement or eye opening to voice but no eye contact. Patient Monitoring Once the patient has demonstrated a response to the naloxone, continue to monitor respiratory rate, depth, oxygen saturation and end-tidal CO2 (if available) every 15 minutes x 2, then every 30 minutes x 2, then every 1 hour x 1 after each naloxone dose. Consider transfer to ICU if patient respiratory parameters have not improved after 4 naloxone doses. Or naloxone (NARCAN) injection 0.4 mgJump to med 0.4 mg, Intramuscular, EVERY 2 MIN PRN, opioid reversal, Starting on 09/04/23 at 2343, Administer intramuscular if an intravenous route is not available and notify provider when administered. For unintended sedation or respiratory depression if all of the below criteria are met: ~ respiratory rate LESS than or EQUAL to 8. ~ SaO2 less than 92% and or/end-tidal CO2 is greater than 50. ~ the patient is receiving an opioid, has unintended sedation assessed as RASS (-4) or (-5) and patient is currently not on mechanical ventilation. RASS scale (-4) is deep sedation with no response to voice but movement or eye opening to physical stimulation. RASS scale (-5) is unarousable. Patient Monitoring Once the patient has demonstrated a response to the naloxone, continue to monitor respiratory rate, depth, oxygen saturation and end-tidal CO2 (if available) every 15 minutes x 2, then every 30 minutes x 2, then every 1 hour x 1 after each naloxone dose. Consider transfer to ICU if patient respiratory parameters have not improved after 4 naloxone doses. Group 4: ondansetron (ZOFRAN ODT) ODT tab 4 mgJump to med 4 mg, Oral, EVERY 6 HOURS PRN, nausea, vomiting, Starting on 09/04/23 at 2337, This is Step 1 of nausea and vomiting management. If nausea not resolved in 15 minutes, go to Step 2 prochlorperazine (COMPAZINE). With dry hands, peel back foil backing and gently remove tablet. Do not push oral disintegrating tablet through foil backing. Administer immediately on tongue and oral disintegrating tablet dissolves in seconds, then swallow with saliva. Liquid not required. Or ondansetron (ZOFRAN) injection 4 mgJump to med 4 mg, Intravenous, EVERY 6 HOURS PRN, nausea, vomiting, Administer over 2-5 Minutes, Starting on 09/04/23 at 2337, Give IF patient unable to tolerate oral medication. This is Step 1 of nausea and vomiting management. If nausea not resolved in 15 minutes, go to Step 2 prochlorperazine (COMPAZINE). Irritant. Group 5: senna-docusate (SENOKOT-S/PERICOLACE) 8.6-50 MG per tablet 1 tabletJump to med 1 tablet, Oral, 2 TIMES DAILY PRN, constipation, Starting on 09/04/23 at 2337, If no bowel movement in 24 hours, increase to 2 tablets by mouth. IF more than 1 constipation PRN medication is ordered, administer step-sultana as indicated, moving to the next step ONLY if prior step ineffective. Step 1: senna-docusate (SENOKOT-S; PERICOLACE) OR bisacodyl (DULCOLAX) EC tablet Step 2: magnesium hydroxide (MILK OF MAGNESIA) OR polyethylene glycol (MIRALAX/GLYCOLAX) Step 3: bisacodyl (DULCOLAX) suppository Step 4: sodium phosphate (FLEET ENEMA) Hold for loose stools. Or senna-docusate (SENOKOT-S/PERICOLACE) 8.6-50 MG per tablet 2 tabletJump to med 2 tablet, Oral, 2 TIMES DAILY PRN, constipation, Starting on 09/04/23 at 2337, IF more than 1 constipation PRN medication is ordered, administer step-sultana as indicated, moving to the next step ONLY if prior step ineffective. Step 1: senna-docusate (SENOKOT-S; PERICOLACE) OR bisacodyl (DULCOLAX) EC tablet Step 2: magnesium hydroxide (MILK OF MAGNESIA) OR polyethylene glycol (MIRALAX/GLYCOLAX) Step 3: bisacodyl (DULCOLAX) suppository Step 4: sodium phosphate (FLEET ENEMA) Hold for loose stools. documented in this encounter Additional Health Concerns Infection Onset Date Last Indicated Resolved Time Rule Out Mumps 09/04/2023 09/04/2023 09/10/2023 11 :39 PM CDT documented as of this encounter Care Teams Travel Insurance Agent Relationship Specialty Start Date End Date [facility], [facility] [address] [place] [address] PCP - General 09/04/23 documented as of this encounter
--- OUTSIDE RECORDS SUMMARY | 2023-11-21 08:11 | XMS_ITS | Encounter Summary ---
Author Name Unknown Organization [facility] Address [facility] [place] [address] Care Team Providers Care Instructional Systems Designer Name Role Phone [facility] Jeyson [facility] 637 Primary Care Provider Reason for Visit * Reason Onset Date Comments Results 08/02/2023 Encounter Details Date Type Department Care Team (Late st Contact Info) Description 08/02/2023 Telephone [facility] Emergency Dept [address] [place] [id number] [phone] Nabil Starkey, FRANCIS Results Social History Tobacco Use Types Packs/Day Years [...] PM CDT documented as of this encounter Miscellaneous Notes * Telephone Encounter - Crystal Nina RN - 08/03/2023 1:07 PM CDT [facility] Emergency Department/Urgent Care Lab result notification: Reason for call Notify the patient/parent of lab results Assess patient symptoms (if applicable) Review ED providers recommendations/discharge instructions (if necessary) Advise per [facility] ED lab result protocol Lab result Final Wound Aerobic Bacterial Culture (specimen - Knee, Right; Wound) report on 08/02/23 [facility] Emergency Dept discharge antibiotic prescribed: Cephalexin (Keflex) 500 mg capsule, 1 capsule (500 mg) by mouth 4 times daily for 10 days. #1. Bacteria, Pseudescherichia vulneris & Pantoea species, is [NOT TESTED] to antibiotic. Incision and Drainage performed in the [facility] ED: YES Recommendations in treatment per [facility] ED lab result culture protocol 1:16p Relayed to patient results of culture She reports pus like drainage that looks orange, Redness around the wound is gone. She can move and bend knee, no fever chills. She has followed up with her primary physician. She will continue medications and her directions from her primary. Crystal Nina RN [facility] Service [facility] Result RN [facility] Emergency Dept Lab Result RN * Telephone Encounter - Nabil Starkey RN - 08/02/2023 4:58 PM CDT [facility]) Emergency Department/Urgent Care Lab result notification: Reason for call Notify the patient/parent of lab results Assess patient symptoms (if applicable) Review ED providers recommendations/discharge instructions (if necessary) Advise per [facility] ED lab result protocol Lab result Final Wound Aerobic Bacterial Culture (specimen - Knee, Right; Wound) report on 08/02/23 [facility] Emergency Dept discharge antibiotic prescribed: Cephalexin (Keflex) 500 mg capsule, 1 capsule (500 mg) by mouth 4 times daily for 10 days. #1. Bacteria, Pseudescherichia vulneris & Pantoea species, is [NOT TESTED] to antibiotic. Incision and Drainage performed in the [facility] ED: YES Recommendations in treatment per [facility] ED lab result culture protocol Left voicemail message requesting a call back to [phone] between 9 a.m. and 5:30 p.m. for patient's ED/ lab results. Nabil Starkey RN Customer Service Center Result RN [facility] Emergency Dept Lab Result RN documented in this encounter Plan of Treatment Not on file documented as of this encounter Visit Diagnoses Not on filedocumented in this encounter Care Teams Instructional Systems Designer Relationship Specialty Start Date End Date [facility] [place] [address] [facility] [address] [place] [id number] PCP - General 06/25/23 09/03/23 documented as of this encounter
--- OUTSIDE RECORDS SUMMARY | 2023-11-21 08:11 | XMS_ITS | Encounter Summary ---
Author Name Unknown Organization [facility] Address [address] [place] [id number] Care Team Providers Care Credit Or Loans Officer Name Role Phone [facility] 63Kathryn Primary Care Provider Encounter Details Date Type Department Care Team (Latest Contact Info) Description 06/25/2023 Travel Social History Tobacco Use Types Packs/Day [...] suspected to have Coronavirus/COVID-19? No / Unsure 06/25/2023 6:52 AM CDT documented as of this encounter Plan of Treatment Not on file documented as of this encounter Visit Diagnoses Not on filedocumented in this encounter Care Teams Credit Or Loans Officer Relationship Specialty Start Date End Date [facility] [address] [facility] [address] [place] [address] PCP - General 06/25/23 09/03/23 documented as of this encounter
--- OUTSIDE RECORDS SUMMARY | 2023-11-21 08:12 | XMS_ITS | Encounter Summary ---
Author Name Unknown Organization [facility] Address [facility] [place] [address] Care Team Providers Care Hearth Feeder Name Role Phone Unavailable Primary Care Provider Unavailabl e Encounter Details Date Type Department Care Team (Late st Contact Info) Description 02/17/2023 Telephone [facility] [address] [place] [phone] Lulu Oropeza RN Social History Tobacco Use Types Packs/Day Years Used Date Smoking Tobacco: Never Assessed Sex and Gender Information Value Date Recorded Sex Assigned at Not on file Gender Identity Not on file Sexual Orientation Not on file documented as of this encounter Miscellaneous Notes * Telephone Encounter - Lulu Oropeza RN - 02/17/2023 3:20 PM CDT Marked chart for merge with chart with verified identifying information. Lulu Oropeza RN on 02/17/2023 at 3:33 PM documented in this encounter Plan of Treatment Not on file documented as of this encounter Visit Diagnoses Not on filedocumented in this encounter
--- OUTSIDE RECORDS SUMMARY | 2023-11-21 08:12 | XMS_ITS | Patient Health Record ---
Author Name Unknown Organization [facility]'s [facility] Address [address] [place] [address] Care Team Providers Care Retail Planning Manager Name Role Phone Luis Berta Primary Care Provider Dejan Bello Unavailable [phone] DanicaAndrésJeannine Unavailable [phone] Natali Christiansen Unavailable [phone] [place] [facility], Mammography Unavailable Unav ailable Bartolo Klein Unavailable [phone] KingMana Unavailable [phone] KarAugustine salas Unavailable [phone] Deidra Macario Unavailable [phone] ALLERGIES Allergen (clinical drug ingredient) Drug/Non Drug Allergy documented on EMR Reaction Allergy Type Onset Date Status morphine Morphine Unknown Drug Allergy Active RESULTS Component Value Reference Range Notes Urinalysis, Routine - IH Reviewed date:06/07/2023 02:12:37 PM Interpretation: Performing Lab: Notes/Report: Urine Color yellow Yellow - Praveena Appearance clear Clear - Glucose neg Bilirubin neg Ketone neg Specific [place] 1.030 Blood 3+ 200 pH 5.5 Protein 30 Urobilinogen 0.2 Nitrite neg Leukocytes 2+ 125 Glucose Bilirubin Ketones Specific [place] Occult Blood pH Protein Urobilinogen Nitrite Leukocytes Test, Urine Reviewed date:07/06/2023 01:45:32 PM Interpretation: Performing Lab: Notes/Report: Test, Urine neg Negative - SURESWAB(R), MYCOPLASMA/UREA PLASMA PANEL, PCR Reviewed date:06/10/2023 04:35:42 PM Interpretation: Performing Lab:EZ, [facility],[address], [place] Ange Esquivel MD,PhD,BERE Notes/Report: SURESWAB(R), MYCOPLASMA HOMINIS, REAL-TIME PCR DETECTED REFEERENCE RANGE: NOT DETECTED Methodology: Real-Time PCR This test was developed and its analytical performance characteristics have been determined by [facility]. It has not been cleared or approved by FDA. This assay has been validated pursuant to the CLIA regulations and is used for clinical purposes. MYCOPLASMA GENITALIUM, rRNA,TMA DETECTED REFERENCE RANGE: NOT DETECTED U. PARVUM DNA DETECTED U. UREALYTICUM DNA DETECTED REFERENCE RANGE: NOT DETECTED Methodology: Real-Time PCR This test was developed and its analytical performance characteristics have been determined by [facility]. It has not been cleared or approved by FDA. This assay has been validated pursuant to the CLIA regulations and is used for clinical purposes. BV/VAGINITIS PANEL DNA PROBE Reviewed date:06/10/2023 08:59:51 AM Interpretation: Performing Lab:CESAR [facility]-[address], [place]qqhJI[address] Paolo Hauser Notes/Report: TRICHOMONAS: NOT DETECTED NOT DETECTED GARDNERELLA: DETECTED NOT DETECTED Increased levels of G. vaginalis may not be significant in the absence of signs and symptoms of bacterial vaginosis. DIONTE: NOT DETECTED NOT DETECTED Chlamydia & Gonorrhea Reviewed date:06/10/2023 04:28:18 PM Interpretation: Performing Lab:CESAR [facility]-[address], [place]uax[place] Paolo Hauser Notes/Report: CHLAMYDIA TRACHOMATIS RNA, TMA, UROGENITAL NOT DETECTED NOT DETECTED NEISSERIA GONORRHOEAE RNA, TMA, UROGENITAL NOT DETECTED NOT DETECTED COMMENT The analytical performance characteristics of this assay, when used to test SurePath(TM) specimens have been determined by [facility]. The modifications have not been cleared or approved by the FDA. This assay has been validated pursuant to the CLIA regulations and is used for clinical purposes. For additional information, please refer to https://education.Lalalama/faq/UNN590 (This link is being provided for information/ educational purposes only.) CULTURE, URINE, ROUTINE Reviewed date:06/10/2023 09:38:46 AM Interpretation: Performing Lab:CB, [facility]-[place] Bixv[address] [facility], [facility] HospitalDbtqIZ[address] Paolo Hauser Notes/Report: CULTURE, URINE, ROUTINE SEE NOTE CULTURE, URINE, ROUTINE Micro Number: [id number] Test Status: Final Specimen Source: Urine, clean [...] cefdinir, cefpodoxime, cefprozil, cefuroxime, cephalexin and loracarbef. Urinalysis, Routine - IH Reviewed date:03/09/2023 02:40:40 PM Interpretation: Performing Lab: Notes/Report: Urine Color yellow Yellow - Praveena Appearance clear Clear - Glucose neg Bilirubin neg Ketone neg Specific [place] 1.030 Blood neg pH 5.5 Protein neg Urobilinogen 0.2 Nitrite neg Leukocytes neg Glucose Bilirubin Ketones Specific [place] Occult Blood pH Protein Urobilinogen Nitrite Leukocytes Test, Urine Reviewed date:12/18/2022 09:39:47 AM Interpretation:Negative Performing Lab: Notes/Report: Negative Test, Urine Negative Negative - ANTI-MULLERIAN HORMONE ([facility]) , (Insurance Bill ONLY) Reviewed date:05/04/2023 10:03:17 AM Interpretation: Performing Lab:[facility] GARCIA-Chris Jthlaqfb[address], KogbnnqoKR[address] Murtaza Christiansen M.D. Notes/Report: ANTI-MULLERIAN HORMONE ([facility]), FEMALE 4.01 0.18-5.68 ng/mL TESTOSTERONE, FREE Reviewed date:05/04/2023 10:02:39 AM Interpretation: Performing Lab:Z3E, [facility]-EfwPdxfhk7933 [facility] [address], [address], RlddhwccnfAR[address] Earl Mcdonough MD Notes/Report: TESTOSTERONE, FREE 1.3 0.2-5.0 pg/mL (Note) The concentration of free testosterone is derived from a mathematical model using total testosterone by LCMSMS, sex hormone binding globulin and albumin. This test was developed and its analytical performance characteristics have been determined by [facility]. It has not been cleared or approved by the FDA. This assay has been validated pursuant to the CLIA regulations and is used for clinical purposes. MD med fusion [address] [address],[address] [facility] [address] Earl Mcdonough MD DIHYDROTESTOSTERONE, LC/MS/M S Reviewed date:05/04/2023 10:02:39 AM Interpretation: Performing Lab:[facility] DASH/Chris [facility],[address] [facility] CenterCA[address] Ange Esquivel MD,PhD,BERE Notes/Report: DIHYDROTESTOSTERONE, LC/MS/MS 11 < OR = 20 ng/dL This test was developed and its analytical performance characteristics have been determined by [facility]. It has not been cleared or approved by FDA. This assay has been validated pursuant to the CLIA regulations and is used for clinical purposes. TESTOSTERONE, TOTAL, LC/MS/M S Reviewed date:05/04/2023 10:02:38 AM Interpretation: Performing Lab:Z3E, [facility]-NirUgkbkk0903 [facility] [address], [address], DadjwzxzvxYT[address] Earl Mcdonough MD Notes/Report: TESTOSTERONE, TOTAL, MS 26 2-45 ng/dL For additional information, please refer to https://education.Lalalama/faq/TotalTestoste roneLCMSMS (This link is being provided for informational/educational purposes only.) (Note) This test was developed and its analytical performance characteristics have been determined by [facility]. It has not been cleared or approved by the FDA. This assay has been validated pursuant to the CLIA regulations and is used for clinical purposes. [facility] med fusion [address] [address],[address] [facility] [address] Earl Mcdonough MD SEX HORMONE BINDING GLOBULIN Reviewed date:04/30/2023 11:49:39 AM Interpretation: Performing Lab:ROSANGELA [facility]-Station X [address], [place] VomlBC[address] Paolo Hauser Notes/Report: SEX HORMONE BINDING GLOBULIN 73 17-124 nmol/ L T3, FREE Reviewed date:04/30/2023 11:49:39 AM Interpretation: Performing Lab:ROSANGELA [facility]-Station X [address], [place] RxryWV[address] Paolo Hauser Notes/Report: T3, FREE 3.3 2.3-4.2 pg/mL TSH Reviewed date:04/30/2023 11:49:38 AM Interpretation: Performing Lab:ROSANGELA [facility]-Station X [address], [place] HbzsOI[address] Paolo aHuser Notes/Report: TSH 1.25 Reference Range > or = 20 Years 0.40-4.50 Ranges First trimester 0.26-2.66 Second trimester 0.55-2.73 Third trimester 0.43-2.91 CORTISOL, TOTAL Reviewed date:04/30/2023 11:49:38 AM Interpretation: Performing Lab:ROSANGELA [facility]-Station X [address], [place] YmpkTT[address] Paolo Hauser Notes/Report: CORTISOL, TOTAL 13.5 Reference Range: For 8 a.m.(7-9 a.m.) Specimen: 4.0-22.0 Reference Range: For 4 p.m.(3-5 p.m.) Specimen: 3.0-17.0 * Please interpret above results accordingly * T4, FREE Reviewed date:04/30/2023 11:49:38 AM Interpretation: Performing Lab:ROSANGELA [facility]-Bl[place] [address], [place] SaenzAfwoRV[address] Paolo Hauser Notes/Report: T4, FREE 1.1 0.8-1.8 ng/dL PROLACTIN Reviewed date:04/30/2023 11:49:38 AM Interpretation: Performing Lab:[facility]-[place] [address], [place] SaenzSixmMT[address] Paolo Hauser Notes/Report: PROLACTIN 3.7 Reference Range Females Non- 3.0-30.0 10.0-209.0 Postmenopausal 2.0-20.0 LH Reviewed date:04/30/2023 11:49:38 AM Interpretation: Performing Lab:[facility]-Station X [address], [place] ValentinoJgauTL[address] Paolo Hauser Notes/Report: LH 3.3 Reference Range Follicular Phase 1.9-12.5 Mid-Cycle Peak 8.7-76.3 Luteal Phase 0.5-16.9 Postmenopausal 10.0-54.7 FSH Reviewed date:04/30/2023 11:49:38 AM Interpretation: Performing Lab:ROSANGELA [facility]-[address], [place] SaenzRrqpKV[address] Paolo Hauser Notes/Report: FSH 4.6 Reference Range Follicular Phase 2.5-10.2 Mid-cycle Peak 3.1-17.7 Luteal Phase 1.5- 9.1 Postmenopausal 23.0-116.3 DHEA SULFATE Reviewed date:04/30/2023 11:49:38 AM Interpretation: Performing Lab:ROSANGELA [facility]-Station X [address], [place] NnnsJC[address] Paolo Hauser Notes/Report: DHEA SULFATE 148 19-237 mcg/dL PROGESTERONE Reviewed date:04/30/2023 11:49:38 AM Interpretation: Performing Lab:ROSANGELA [facility]-Station X [address], [place] QewnRY[address] Paolo Hauser Notes/Report: PROGESTERONE 1.9 Reference Ranges Female Follicular Phase < 1.0 Luteal Phase 2.6-21.5 Post menopausal < 0.5 1st Trimester 4.1-34.0 2nd Trimester 24.0-76.0 3rd Trimester 52.0-302.0 ESTRADIOL Reviewed date:04/30/2023 11:49:38 AM Interpretation: Performing Lab:[facility] ADAMES-[place] Adpp[address]507 [facility], [facility] HospitalHsnkZN[address] Paolo Hauser Notes/Report: ESTRADIOL 59 Reference Range Follicular Phase: 19-144 Mid-Cycle: 64-357 Luteal Phase: 56-214 Postmenopausal: < or = 31 Reference range established on post-pubertal patient population. No pre-pubertal reference range established using this assay. For any patients for whom low Estradiol levels are anticipated (e.g. males, pre-pubertal children and hypogonadal/post-menopausal females), the [employer] [place] Estradiol, Ultrasensitive, LCMSMS assay is recommended (order code 23320). Please note: patients being treated with the drug fulvestrant (Faslodex(R)) have demonstrated significant interference in immunoassay methods for estradiol measurement. The cross reactivity could lead to falsely elevated estradiol test results leading to an inappropriate clinical assessment of estrogen status. [facility] order code [id number], Ultrasensitive LC/MS/MS demonstrates negligible cross reactivity with fulvestrant. ALBUMIN Reviewed date:04/30/2023 11:49:38 AM Interpretation: Performing Lab:[facility] ADAMES-[place] Mrgu[address] [facility], United HospitalKdulMN[address] Paolo Hauser Notes/Report: ALBUMIN 4.7 3.6-5.1 g/dL SURESWAB(R), MYCOPLASMA/UREA PLASMA PANEL, PCR Reviewed date:12/21/2022 12:13:14 PM Interpretation: Performing Lab:[facility] DASH/Pe[facility],[address] [facility] CenterCA[address] Ange Esquivel MD,PhD,BERE Notes/Report: SURESWAB(R), MYCOPLASMA HOMINIS, REAL-TIME PCR DETECTED REFEERENCE RANGE: NOT DETECTED Methodology: Real-Time PCR This test was developed and its analytical performance characteristics have been determined by [facility]. It has not been cleared or approved by FDA. This assay has been validated pursuant to the CLIA regulations and is used for clinical purposes. MYCOPLASMA GENITALIUM, rRNA,TMA NOT DETECTED REFERENCE RANGE: NOT DETECTED U. PARVUM DNA DETECTED U. UREALYTICUM DNA DETECTED REFERENCE RANGE: NOT DETECTED Methodology: Real-Time PCR This test was developed and its analytical performance characteristics have been determined by [facility]. It has not been cleared or approved by FDA. This assay has been validated pursuant to the CLIA regulations and is used for clinical purposes. BD Affirm Reviewed date:03/09/2023 02:43:08 PM Interpretation: Performing Lab: Notes/Report: Yeast NEG Negative - Bacterial Vaginosis POS Negative - Trichomoniasis NEG Negative - Chlamydia & Gonorrhea Reviewed date:12/20/2022 08:03:54 AM Interpretation: Performing Lab:CESAR [facility]-[address], [place]auqxejhirVA[address] Paolo Hauser Notes/Report: CHLAMYDIA TRACHOMATIS RNA, TMA, UROGENITAL NOT DETECTED NOT DETECTED NEISSERIA GONORRHOEAE RNA, TMA, UROGENITAL NOT DETECTED NOT DETECTED COMMENT The analytical performance characteristics of this assay, when used to test SurePath(TM) specimens have been determined by [facility]. The modifications have not been cleared or approved by the FDA. This assay has been validated pursuant to the CLIA regulations and is used for clinical purposes. For additional information, please refer to https://education.Lalalama/faq/KHN337 (This link is being provided for information/ educational purposes only.) BD Affirm Reviewed date:12/18/2022 09:40:46 AM Interpretation: Performing Lab: Notes/Report: Yeast NEG Negative - Bacterial Vaginosis POS Negative - Trichomoniasis NEG Negative - REASON FOR REFERRAL No Information MEDICATIONS Medication SIG (Take, Route, Fr equency, Duration) Notes Start Date End Date Status Testosterone pellets Active SOCIAL HISTORY Tobacco Use: Social History Observation [...] female climacteric states (N95.1) Active confirmed Menopause (045179364) Problem Unspecified menopausal and perimenopausal disorder (N95.9) Active confirmed Menopausal and postmenopausal disorders (132643607) Problem Encounter for screening for infections with a predominantly sexual mode of transmission (Z11.3) Active confirmed Sexually transmitted infectious disease (2884509) Problem Amenorrhea (N91.2) Active confirmed Amenorrhea (21493752) Problem Abnormal uterine bleeding (N93.9) Active confirmed Abnormal ut erine bleeding (56924375893577) Problem Chronic vaginitis (N76.1) Active confirmed 81843426 Problem 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) Problem Discharge of vagina (N89.8) Active confirmed Vaginal disch arge (430267600) Problem Trouble in sleeping (G47.9) Active confirmed 678723948 Problem Encounter for screening for HIV (Z11.4) Active confirmed Human immunodeficiency virus screening (197188924) Problem UTI (N39.0) Active confirmed Urinary tr act infection (86683461) VITAL SIGNS Blood pressure diastolic 80 mm Hg 07/06/2023 Height 68 in 07/06/2023 Blood pressure systolic 132 mm Hg 07/06/2023 Weight 175.2 lbs 07/06/2023 BMI 26.64 kg/m2 07/06/2023 Encounters Encounter Location Date Provider Diagnosis [address] [address] 12/16/2022 Natali Christiansen [address] [address] 12/21/[address] [facility] [address] [place] [address] 03/04/2023 Bartolo Klein [facility] [address] [place] [address] 06/07/2023 Augustine Bowen [facility] [address] [place] [address] 06/10/2023 Augustine Bowen [facility] [address] [place] [address] 06/10/[address] [facility] [address] [place] [address] 01/21/[address] [facility] [address] [place] [address] 04/28/2023 Dejan [place] Recurrent infections B99.[address] [place] [address] [place] [address] 04/28/2023 Dejan [place] [address] [place] [address] 08/20/2023 Dejan [facility] [address] [facility] [address] [address] [place] [address] 06/16/2023 Deidra Macario [place] [address] [place] [address] 05/18/2023 Dejan [address] [place] [place] [address] 06/23/2023 Jeannine Farb Vaginal odor N89.8 ; Vaginal irritation N89.8 ; Menopausal and female climacteric states N95.1 ; Weight gain R63.5 ; Hair thinning L65.9 ; Brain fog R41.89 ; Trouble in sleeping G47.9 ; Mood changes R45.86 ; Decreased libido R68.82 and Low testosterone level in female R79.89 [facility] [address] [place] [address] 06/07/2023 Augustine Andrés Blood in urine R31.9 ; Urination frequency R35.0 ; Encounter for screening examination for sexually transmitted disease Z11.3 ; Encounter for screening examination for chlamydial infection Z11.8 and Vaginal irritation N89.8 [facility] [address] [place] [address] 08/02/2023 Jeannine Farb Unspecified menopausal and perimenopausal disorder N95.9 [place] [address] [place] [address] 12/16/2022 Natali Hoffoss Cervical discharge N89.8 [facility] [address] [place] [address] 12/16/2022 Natali Hoffoss Encounter for screening examination for sexually transmitted disease Z11.3 and Encounter for screening examination for chlamydial infection Z11.8 [facility] [address] [place] [address] 04/28/2023 Dejan Bello Desire for Z31.9 ; Dysfunction of left ovary E28.9 and Infection B99.9 [address] [address] [place] [address] 03/04/2023 Christamy Ernie Cervical discharge N89.8 [address] [place] [address] 12/16/2022 Natali Hoffoss Amenorrhea N91.2 ; Urine test negative Z32.02 ; Vaginal discharge N89.8 ; Chronic vaginitis N76.1 and Routine screening for STI (sexually transmitted infection) Z11.3 [address] [place] [address] 07/06/2023 Jeannine Mishra Encounter for other preprocedural examination Z01.818 and Unspecified menopausal and perimenopausal disorder N95.9 [address] [place] [place] [address] 12/16/2022 Natali Hoffoss Abnormal uterine bleeding N93.9 [facility] [address] [place] [address] 06/07/2023 Augustine Bowen Dysuria R30.0 ; Vaginal odor N89.8 and Routine screening for STI (sexually transmitted infection) Z11.3 [address] [place] [address] 03/04/2023 Bartolo Klein UTI N39.0 and Chroni c vaginitis N76.1 [address] [place] [address] 06/23/2023 Mammography [facility] Breast cancer screening Z12.31 [address] [place] [address] 06/08/2023 Dejan Bello Chronic vaginitis N76.1 and Menopausal and female climacteric states N95.[address] [facility] [address] [place] [address] 08/09/2023 [facility] [address] [place] [address] 06/23/2023 Jeannineanton Frank ASSESSMENTS Encounter Date Diagnosis Assessment Notes Treatment Notes Treatment Clinical Notes 03/04/2023 UTI (ICD-10 - N39.0) History and symptoms reviewed. UA normal. No further treatment at this time. 06/08/2023 Menopausal and female climacteric states (ICD-10 - N95.1) 06/08/2023 Chronic vaginitis (ICD-10 - N76.1) 06/07/2023 Dysuria (ICD-10 - R30.0) UA reviewed. Plan UC for further evaluation of UTI. Treat if infection identified on UC 06/07/2023 Vaginal odor (ICD-10 - N89.8) BD affirm. Oral treatment with Flagyl preferred Desires repeat testing for ureaplasma/micoplasma since previous partner had other partners and now she has a new partner 06/23/2023 Breast cancer screening (ICD-10 - Z12.31) 07/06/2023 Encounter for other preprocedural examination (ICD-10 - Z01.818) 08/02/2023 Unspecified menopausal and perimenopausal disorder (ICD-10 - N95.9) 06/07/2023 Blood in urine (ICD-10 - R31.9) 06/07/2023 Urination frequency (ICD-10 - R35.0) 12/16/2022 [...] 12/16/2022 Urine test negative (ICD-10 - Z32.02) 04/28/2023 Recurrent infections (ICD-10 - B99.9) 36 [...] these lab results and develop a plan. 06/23/2023 Vaginal odor (ICD-10 - N89.8) Discussed that full course of doxycycline for tx of mycoplasma and ureaplasma should be taken and new Rx sent to pharmacy. Instructed pt on no IC during tx and for 7 days after full tx completed. Discussed that full course of oral metronidazole should be taken for tx of +BV, new Rx sent to pharmacy. 04/28/2023 Desire for (ICD-10 - Z31.9) 03/04/2023 Chronic vaginitis (ICD-10 - N76.1) Symptoms reviewed. Exam findings reviewed with patient. BD Affirm performed. Further treatment pending results. Discussed chronic vaginitis and briefly discussed treatment options. 03/04/2023 Cervical discharge (ICD-10 - N89.8) 12/16/2022 Cervical discharge (ICD-10 - N89.8) 06/23/2023 Vaginal irritation (ICD-10 - N89.8) 12/16/2022 Vaginal discharge (ICD-10 - N89.8) 06/07/2023 Encounter for screening examination for sexually transmitted disease (ICD-10 - Z11.3) 07/06/2023 Unspecified menopausal and perimenopausal disorder (ICD-10 - N95.9) Hormone pellets inserted today per patient desires and medical recommendation. After care and follow up instructions were reviewed with patient in great detail. Patient states that all questions have been answered to her satisfaction. 06/07/2023 Routine screening for STI (sexually transmitted infection) (ICD-10 - Z11.3) 04/28/2023 Infection (ICD-10 - B99.9) 04/28/2023 Dysfunction of left ovary (ICD-10 - E28.9) 06/07/2023 Encounter for screening examination for chlamydial infection (ICD-10 - Z11.8) 12/16/2022 Chronic vaginitis (ICD-10 - N76.1) 06/23/2023 Menopausal and female climacteric states (ICD-10 - N95.1) Mammogram needed. Discussed that mammogram will not cause rupture of breast implants. Pt will schedule mammogram. Method of contraception: partner with vasectomy 06/23/2023 Weight gain (ICD-10 - R63.5) 06/23/2023 Hair thinning (ICD-10 - L65.9) 12/16/2022 Routine screening for STI (sexually transmitted infection) (ICD-10 - Z11.3) 06/07/2023 Vaginal irritation (ICD-10 - N89.8) 06/23/2023 [...] would like to proceed with pellet therapy. 08/09/2023 Other This visit was conducted with the use of audio and video telecommunications system that permits real time communication between the patient and provider. Patient consent for virtual visit was obtained. [place] [facility] [place]: pt home Start [...] Dr. Bello. 06/07/2023 Other 20 min. of tota l time spent in chart prep, obtaining history, reviewing previous results, discussing recommended evaluation, performing exam, and documenting visit note. 06/08/2023 Other labs were performed but no Testosterone. All other labs normal. We discused these. Plan to come in for testosterone. This visit was conducted with the use of audio and video telecommunications system that permits real time communication between the patient and provider. Patient consent for virtual visit was obtained. Originating [place] [facility] [place] [facility] [place] Distant site: pt home Start time:11 Stop time:11:20 06/23/2023 Other 30 minutes spen t preparing/discussing/do cumenting about above diagnoses. 07/06/2023 Other Ice pack x20min, 5 times today Follow up: HRT labs 4 wks. HRT televisit 5 wks. PLAN OF TREATMENT Pending Test Test Name Order Date ESTRADIOL 08/02/2023 FSH 08/02/2023 TESTOSTERONE, TOTAL, LC/MS/MS 08/02/2023 MAMMOGRAM 06/23/2023 Insurance Providers Payer Name Payer Address Payer Phone Subscriber Number Group Number Insured Name Patient Relationship to Insured Coverage Start Date Coverage End Date [facility] 2021 [place] (CLIENT bill) [address] [place], [place] [id number] Taylor Solis Self - patient is the insured 2 [facility] 2019 [address] [place], [place] [id number] [place] Taylor Solis Self - patient is the insured 7 MEDICAL (GENERAL) HISTORY Medical History History ICD Code Kidney Infections Bladder Infections Pelvic infections Chicken Pox Depression/Anxiety Drug or Alcohol problem Asthma Pneumonia Surgical History Surgery Date(Month/Year) C-sesction 08/13/2005 Breast Augmentation 05/08/2006 06/21/2008 D and C 10/2017 Hospitalization History Reason Date(Month/Year) child x2
--- OUTSIDE RECORDS SUMMARY | 2023-11-21 08:12 | XMS_ITS ---
Author Name Unknown Organization [facility] Address [address] [place] [id number] Care Team Providers Care Cellophane Wrapping Examiner Name Role Phone Jackelyn, Shawn [place] [facility] Provide r Transitional Care Management Status:Closed (Closed) Start date:09/08/2023 Enrollment date:09/09/2023 End date:09/22/2023 Close reason:Goals met Continued Care and Services Coordination
--- OUTSIDE RECORDS SUMMARY | 2023-11-21 08:12 | XMS_ITS | Encounter Summary ---
Author Name Unknown Organization [place] Address [facility] [place] [address] Care Team Providers Care Broomcorn Seeder Name Role Phone [facility] Jeyson, [facility] 637 Primary Care Provider Reason for Visit * Reason Comments Knee Injury Encounter Details Date Type Department Care Team (Late st Contact Info) Description 06/25/2023 6:58 AM CDT - 06/25/2023 10:[address] [facility] Emergency Dept [address] [place] [id number] [phone] Diego Becker MD [facility] [address] [place] [address] Acute pain of right knee Discharge Disposition: Home or [...] AM CDT documented as of this encounter Last Filed Vital Signs Vital Sign Reading Time Taken Comments Blood Pressure 126/74 06/25/2023 9:50 AM CDT Pulse 79 06/25/2023 9:50 AM CDT Temperature 36.7 ??C (98 ??F) 06/25/2023 9:50 AM CDT Respiratory Rate 18 06/25/2023 9:50 AM CDT Oxygen Saturation 99% 06/25/2023 9:50 AM CDT Inhaled Oxygen Concentration - - Weight 79.4 kg (175 lb) 06/25/2023 6:56 AM CDT Height 170.2 cm (5' 7) 06/25/2023 6:56 AM CDT Body Mass Index 27.41 06/25/2023 6:56 AM CDT documented in this encounter Discharge Instructions * Attachments The following attachments cannot be sent through Care Everywhere. * Knee Pain or Injury (Solomon Islander) * Meniscus Tear ([place] Islander) documented in this encounter ED Notes * Antwan Staples RN - 06/25/2023 10:02 AM CDT Patient alert and oriented. Respirations even and unlabored. All discharge education given. All questions answered. All medications explained in detail. Patient denies further needs and states that they are ready to leave. Patient ambulated out of the ER with steady gait.\ * Chica Acevedo RN - 06/25/2023 6:55 AM CDT Pt here today for knee pain after she popped her knee while trying to pick someone up/ Injury sustained at 1800 yesterday. * Diego Becker MD - 06/25/2023 6:52 AM CDT History Chief Complaint: Knee Injury HPI Taylor Solis is a 38 year old female who presents with right knee pain. Patient notes that symptoms started yesterday after trying to lift something heavy. Since then, she has been unable to completely straighten her knee. She states this is happened intermittently over the last several months. Today is the worst that her pain has been. She states she is still able to walk on her knee. She denies numbness or tingling. She denies other injury. She denies fevers. Independent Historian: None - Patient Only Review of External Notes: none Medications: none Past Medical History: none Past Surgical History: unknown Physical Exam Physical Exam Head: The scalp, face, and head appear normal Eyes: Conjunctivae are normal ENT: The nose is normal Pinnae are normal Neck: Trachea midline CV: Normal rate. Normal DP pulses. Resp: No respiratory distress Musc: Normal muscular tone Right knee is stuck at about 15 degrees of flexion. Pain with range of motion. No warmth or erythema. Skin: No rash or lesions noted Neuro: Speech is normal and fluent. Face is symmetric. Moving all extremities well. Normal sensation all 5 distal nerve distributions right lower extremity. Emergency Department Course Imaging: XR Knee Right 3 Views Final Result IMPRESSION: Small right knee joint effusion. No evidence for fracture or compartmental narrowing. JUAN F EAST MD SYSTEM ID: [id number] Report per radiology Emergency Department Course & Assessments: Interventions: Medications ibuprofen (ADVIL/MOTRIN) tablet 800 mg (800 mg Oral $Given 06/25/23804) acetaminophen (TYLENOL) tablet 1,000 mg (1,000 mg Oral $Given 06/25/23804) Independent Interpretation (X-rays, CTs, rhythm strip): I independently reviewed the knee xray. I see no evidence of fracture/dislocation. Consultations/Discussion of Management or Tests: The patient arrived in triage where vitals were measured and recorded. The patient was then escorted back to the emergency department. The patient's medical records were reviewed. Nursing notes and vitals were reviewed. I performed an exam of the patient as documented above. The patient is in agreement with my plan ofcare. Social Determinants of Health affecting care: None Disposition: The patient was discharged to home. Impression & Plan Medical Decision Making: Pt presents with CC right knee pain. Differential diagnosis was broad and included but was not limited to vascular injury, fracture, ligamentous injury, septic arthritis, and dislocation. No history of gross deformity. She is neurovascularly intact on exam. Exam notable for knee that is somewhat stuck at about 15 degrees of flexion. She is unable to participate in evocative testing for ligamentous injury. However, given effusion on x-ray without evidence of fracture, and presentation, I am highly suspicious for a meniscal injury. Patient has had multiple episodes of previous locking, though not this bad. Discussed with patient that she will likely need orthopedic evaluation with MRI. I did discuss case with on-call Ortho JEYSON Domínguez who agrees. Patient was placed in a knee immobilizer, and she was able to ambulate without crutches. She declined pain medication for home, stating she would take Tylenol and ibuprofen. Plan is for patient to follow-up with orthopedic surgery in the next week. She was advised to return to the emergency department for worsening pain, inability to walk, redness, fever, or for any other concerns. She is discharged in stable condition. All questions answered. Diagnosis: ICD-10-CM 1. Acute pain of right knee M25.561 Diego Becker MD 06/27/23 1852 documented in this encounter Plan of Treatment Not on file documented as of this encounter Procedures Procedure Name Priority Date/Time Associated Diagnosis Comments XR KNEE RIGHT 3 VIEWS STAT 06/25/2023 8:37 AM CDT documented in this encounter Results * XR Knee Right 3 Views (06/25/2023 8:37 AM CDT) Anatomical Region Laterality Modality Thigh, Knee, Leg Right Computed Radiog yakov Impressions 06/25/2023 8:44 AM CDT IMPRESSION: Small right knee joint effusion. No evidence for fracture or compartmental narrowing. JUAN [facility] EAST MD SYSTEM ID: [id number] Narrative 06/25/2023 8:44 AM CDT XR KNEE RIGHT 3 VIEWS 06/25/2023 8:37 AM HISTORY: right knee pain, locked COMPARISON: None. Procedure Note Juan F East MD - 06/25/2023 XR KNEE RIGHT 3 VIEWS 06/25/2023 8:37 AM HISTORY: right knee pain, locked COMPARISON: None. IMPRESSION: Small right knee joint effusion. No evidence for fracture or compartmental narrowing. JUAN F EAST MD SYSTEM ID: [id number] Diego Becker MD IMG DIAGNOSTIC IM AGING ORDERABLES documented in this encounter Visit Diagnoses Diagnosis Acute pain of right knee documented in this encounter Administered Medications Inactive Administered Medications - up to 3 most recent administrations Medication Order MAR Action Action Date Dose Rate Site acetaminophen (TYLENOL) tablet 1,000 mg 1,000 mg, Oral, ONCE, On Wed06/25/23 at 0755, For 1 dose, Maximum acetaminophen dose from all sources = 75 mg/kg/day not to exceed 4 gram $Given 06/25/2023 8:05 AM CDT 1,000 mg ibuprofen (ADVIL/MOTRIN) tablet 800 mg 800 mg, Oral, ONCE, On Wed06/25/23 at 0755, For 1 dose, Give with food. $Given 06/25/2023 8:05 AM CDT 800 mg documented in this encounter Active and Recently Administered Medications Times are shown in CDT. Scheduled Medication Order 06/23/2023 06/24/2023 06/25/2023 acetaminophen (TYLENOL) tablet 1,000 mg (COMPLETED) 1,000 mg, Oral, ONCE, On Wed06/25/23 at 0755, For 1 dose, Maximum acetaminophen dose from all sources = 75 mg/kg/day not to exceed 4 gram 0805 ($Given - Provi rosemary: Antwan Staples RN) ibuprofen (ADVIL/MOTRIN) tablet 800 mg (COMPLETED) 800 mg, Oral, ONCE, On Wed06/25/23 at 0755, For 1 dose, Give with food. 0805 ($Given - Provi rosemary: Antwan Staples RN) documented in this encounter Care Teams Broomcorn Seeder Relationship Specialty Start Date End Date [facility] [address] [facility] [address] [place] [address] PCP - General 06/25/23 09/03/23 documented as of this encounter
--- OUTSIDE RECORDS SUMMARY | 2023-11-21 08:12 | XMS_ITS | Clinical Summary ---
Author Name Unknown Organization [facility] Address [place], [place] [address] Support Name Relationship Address Phone Declined 07/27 Emergency Contact Unknown Unavailab le Care Team Providers Care Utility Sales Representative Name Role Phone Petr Neri MD Primary Care Provider Allergies Active Allergy Reactions Criticality Noted Date Comments Morphine Edema 03/14/2013 Medications Medication Sig Dispensed Refills Start Date End Date Status lisdexamfetamine (VYVANSE) 60 mg capsuleIndications:A ttention deficit hyperactivity disorder (ADHD), combined type Take 1 Capsule (60 mg) by mouth once daily. 30 Capsule 0 11/13/2023 Active lisdexamfetamine (VYVANSE) 60 mg capsuleIndications:A ttention deficit hyperactivity disorder (ADHD), combined type Take 1 Capsule (60 mg) by mouth once daily. 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 Encounters Date Type Department Care Team Description 09/17/2023 5:00 PM MATERIAL CHASER Ancillary Procedure [address] [place] [address] 09/17/2023 Telephone [facility] [address] [place] [phone] Daron Christiansen MD 09/14/2023 10:50 AM MATERIAL CHASER Telemedicine [facility] [id number] [place] [phone] Petr Neri MD Telehealth; Medication Management (lisdexamfetamine (VYVANSE) 60 mg capsule, was given vyvanse through hospital, felt like it was amplified or possible side effects from other medications ) 09/06/2023 Telephone [facility] [id number] [place] [phone] Petr Neri MD Prior Authorization (moxifloxacin (AVELOX) 400 mg tablet APPROVED 08/07/23-09/05/24) 09/06/2023 Telephone [facility] [address] [place] [phone] Petr Neri MD CLARIFICATION ON moxifloxacin (AVELOX) 09/04/2023 Nurse Triage [address] [phone] Petr Neri MD Derm Problem 09/03/2023 11:39 AM CDT - 09/03/2023 1:14 PM CDT Emergency [facility] [address] [place] [address] Ally Richards PA Theisen Sturm, Kasey Ann, MD Parotitis, acute (Primary Dx) Discharge Disposition: Home Self Care 09/03/2023 Travel from Last 3 Months Immunizations Name Administration Dates Next Due Human Papilloma Virus Vaccine 05/08/2010, 010 Human Papilloma Virus Vaccine, Unspecified 05/08,03/05/2010 Tdap 07/27/2023,03/13/2010 Family History Medical History Relation Name Comments Good Health Father Good Health Mother Relation Name Status Comments Father Alive Mother Alive Social History Tobacco Use Types Packs/Day Years Used Date Smoking Tobacco: Former Cigarettes Smokeless Tobacco: Never Tobacco Cessation:Counseling Given: Not Answered Alcohol Use Standard Drinks/Week Comments No 0 (1 standard drink = 0.6 oz pur e alcohol) quit PHQ-2 Answer Date Recorded PHQ-2 TOTAL SCORE 1 08/09/2023 Social Connections Answer Date Recorded Frequency of Communication with Friends and Fami ly 0 07/09/2023 Financial Resource Strain Answer Date R ecorded Difficulty of Paying Living Expenses 1 07/09/2023 Difficulty of Paying Living Expenses 2 07/09/2023 Food Insecurity Answer Date Recorded Worried About Running Out of Food in the Last Ye ar 1 07/09/2023 Transportation Needs Answer Date Record ed Lack of Transportation (Medical) 1 07/09/2023 Housing Stability Answer Date Recorded Unable to Pay for Housing in the Last Year 3 07/09/2023 Sex and Gender Information Value Date Recorded Sex Assigned at Not on file Gender Identity Not on file Sexual Orientation Not on file Obstetrics History Para Term AB IAB SAB Ectopic Multiple Livin g Live Births 7 4 4 Date Outcome GA Total Labor Labor//3rd Weight Sex Delivery Anes PTL Diane A1 A5 Name Cl in SAB SAB SAB SAB Last Filed Vital Signs Vital Sign Reading Time Taken Comments Blood Pressure 125/92 09/03/2023 11:22 AM CDT Pulse 83 09/03/2023 11:22 AM CDT Temperature 36.8 ??C (98.2 ??F) 09/03/2023 11:22 AM C DT Respiratory Rate 18 09/03/2023 11:22 AM CDT Oxygen Saturation 97% 09/03/2023 11:22 AM CDT Inhaled Oxygen Concentration - - Weight 81.6 kg (180 lb) 09/03/2023 11:22 AM CDT Height 172.7 cm (5' 8) 09/03/2023 11:22 AM CDT Body Mass Index 27.37 09/03/2023 11:22 AM CDT Plan of Treatment Health Maintenance Due Date Last Done Comments COVID-19 vaccine series (#1) 1987 Influenza for age 9-49 07/09/2023 BMI (ht and wt on same day) for age 18+ 08/09/2024 08/09/2023, 07/09/2023, 10/24/2021, Additional history exists Depression screening for age 12+ 08/09/2024 08/09/2023, 07/21/2023, 08/02/2020, Additional history exists Pap test for age 21-65 10/24/2026 , 10/24/2021, 06/01/2017 Tetanus booster 07/27/2033 07/27/2023, 03/13/2010 Tdap Completed 07/27/2023, 03/13/2010 HIV for age 15-65 Completed 08/09/2023, 08/02/2017 Hepatitis C screening for age 18-79 Completed 08/09/2023, 08/02/2017, 01/13/2007 Pneumococcal series for age 6-64 Aged Out No longer eligible based on patient's age to complete this topic Procedures Procedure Name Priority Date/Time Associated Diagnosis Comments CT NECK SOFT TISSUE W MICHELLE 09/17/2023 5:26 PM MATERIAL CHASER Parotitis from Last 3 Months Results * CT NECK SOFT TISSUE W (09/17/2023 5:26 PM MATERIAL CHASER) Anatomical Region Laterality Modality NECK Computed Tomogra phy 09/17/2023 5:26 PM MATERIAL CHASER Impressions 09/17/2023 9:06 PM MATERIAL CHASER 1. ??Mild right parotitis, appears improved from CT of 09/02/2023. 2. ??Right parotid gland cystic lesion measures 4 mm, previously 1.3 cm, suggesting significant interval improvement. Narrative 09/17/2023 9:06 PM MATERIAL CHASER For Patients: As a result of the Cures Act, medical imaging exams and procedure reports are released immediately into your electronic medical record. You may view this report before your referring provider. If you have questions, please contact your health care provider. EXAM: CT NECK SOFT TISSUE W LOCATION: [facility] DATE: 09/17/2023 INDICATION: Parotitis COMPARISON: 09/02/23 CONTRAST: Omnipaque 350 100 TECHNIQUE: Routine CT Soft Tissue Neck with IV contrast. Multiplanar reformats. Dose reduction techniques were used. FINDINGS: MUCOSAL SPACES/SOFT TISSUES: Normal mucosal spaces of the upper aerodigestive tract. No mucosal mass or inflammation identified. Normal vocal cords and infraglottic trachea. Normal parapharyngeal spaces, and deep soft tissues of the neck, oral cavity, back hoe machine operator spaces, and floor of mouth structures. LYMPH NODES: No pathologic lymph nodes by size or morphology criteria. Bilateral nonenlarged, presumably reactive lymph nodes bilaterally. SALIVARY GLANDS: Right parotid gland hypodense lesion measures 4 x 3 mm, previously 1.3 cm. Mild fat stranding around right parotid gland is improved. Normal parotid and submandibular glands. THYROID: Normal. VESSELS: Vascular structures of the neck are patent. VISUALIZED INTRACRANIAL/ORBITS/SINUSES: No abnormality of the visualized intracranial compartment or orbits. Visualized paranasal sinuses and mastoid air cells are clear. OTHER: No destructive osseous lesion. The included lung apices are clear. Procedure Note Vinod Ahuja MBBS - 09/17/2023 For Patients: As a result of the Cures Act, medical imagingexams and procedure reports are released immediately into your electronicmedical record. You may view this report before your referring provider.If you have questions, please contact your health care provider. EXAM: CT NECK SOFT TISSUE W LOCATION: [facility] DATE: 09/17/2023 INDICATION: Parotitis COMPARISON: 09/02/23 CONTRAST: Omnipaque 350 100 TECHNIQUE: Routine CT Soft Tissue Neck with IV contrast. Multiplanarreformats. Dose reduction techniques were used. FINDINGS: MUCOSAL SPACES/SOFT TISSUES: Normal mucosal spaces of the upperaerodigestive tract. No mucosal mass or inflammation identified. Normalvocal cords and infraglottic trachea. Normal parapharyngeal spaces, anddeep soft tissues of the neck, oral cavity, back hoe machine operator spaces, and floorof mouth structures. LYMPH NODES: No pathologic lymph nodes by size or morphology criteria.Bilateral nonenlarged, presumably reactive lymph nodes bilaterally.SALIVARY GLANDS: Right parotid gland hypodense lesion measures 4 x 3 mm,previously 1.3 cm. Mild fat stranding around right parotid gland isimproved. Normal parotid and submandibular glands. THYROID: Normal. VESSELS: Vascular structures of the neck are patent. VISUALIZED INTRACRANIAL/ORBITS/SINUSES: No abnormality of the visualizedintracranial compartment or orbits. Visualized paranasal sinuses andmastoid air cells are clear. OTHER: No destructive osseous lesion. The included lung apices areclear. IMPRESSION: 1. Mild right parotitis, appears improved from CT of 09/02/2023. 2. Right parotid gland cystic lesion measures 4 mm, previously 1.3 cm,suggesting significant interval improvement. Daron Christiansen MD CT from Last 3 Months Care Teams Utility Sales Representative Relationship Specialty [place] [address] [place] [address] PCP - General Family Practice 07/09/23
== END 2023-11-21 08:23 | disposition home or self-care (01) ==
PROVIDERS: Emergency Provider Family Medicine
DX: N39.0 Urinary tract infection, site not specified (principal)
CPT/HCPCS: 81001; 87086; 87186; 99283